=== PATIENT | female | born 1950 | race Caucasian/White ===

== ENCOUNTER 2018-05-03 19:12 | Emergency (ER) | payer MEDICARE, MEDICAID, SELFPAY ==
[2018-05-03 19:19] VITALS: BP 149/88; PULSE 69; RESP 18; TEMP 36.3; O2SAT 98
--- NOTE | 2018-05-03 19:40 | DI.CT_ITS ---
SYMPTOM/DIAGNOSIS: LLQ ABD PAIN, H/O DIVERTICULITIS ABDOMEN AND PELVIC CT: The study was carried out with an intravenous administration of 100 cc's of Omnipaque 350. No abnormality is demonstrated in the lower thorax. The liver is of normal size. There is a region of diminished absorption in the medial segment of the left hepatic lobe measuring up to 1.1 cm. in diameter. This region is unchanged when compared with the prior examination. The finding most likely representing a cyst. The gallbladder is normal. There is no evidence of biliary dilatation. The pancreas is normal. The spleen is unremarkable. The adrenal glands are normal and the kidneys are within normal limits. There is no evidence of bowel obstruction. A large quantity of fecal material is noted in the colon consistent with constipation. There is nothing to suggest an acute appendix. The bladder is normal. The patient is status post hysterectomy. There is no evidence of free air or free fluid in the intraperitoneal space. A tiny fat containing umbilical hernia is demonstrated. There are atherosclerotic changes involving the aorta without evidence of an aneurysm. No intra-abdominal or pelvic mass or evidence of lymphadenopathy is seen. There are degenerative changes involving a rotoscoliotic thoracolumbar spine and degenerative changes involving both hips are seen. IMPRESSION: A hepatic cyst appears stable when compared with previous examination. The examination today would be consistent with constipation in this status post hysterectomy patient. Degenerative changes involving the spine as described above.
--- NOTE | 2018-05-03 19:46 | ED.GENADUL_ITS ---
Discharge Plan Disposition Patient Disposition: HOME Condition: Stable Discharge Details Chief Complaint: Abd Prob Clinical Impression: Abdominal pain, Constipation Primary Care Provider: Lizabeth Mcmahan ED Provider: Dilip Copeland Home Meds and New Rx's Prescriptions: New docusate sodium [Colace] 100 mg capsule 100 mg PO BID Qty: 20 RF: 0 Continued cholecalciferol (vitamin D3) 3,000 unit tablet 1,000 unit PO DAILY RF: 0 cyclobenzaprine 5 mg tablet 5 mg PO TID PRN (Reason: back pain) Qty: 30 RF: 0 acyclovir 5 % ointment 1 applic Topical Q6H PRN Qty: 30 RF: 1 acyclovir 200 mg capsule 200 mg PO Q4HR PRN (Reason: herpes) Qty: 25 RF: 0 metronidazole 500 mg tablet 500 mg PO TID Qty: 21 RF: 0 ciprofloxacin HCl 250 mg tablet 250 mg PO BID Qty: 14 RF: 0 multivitamin 1 EACH tablet 1 tab PO DAILY RF: 0 Acidophilus-Pectin 1 EACH capsule 1 cap PO DAILY RF: 0 estradiol [Estrace] 42.5 GM cream 42.5 gm VG HS PRNQty: 1 RF: 2 aspirin 81 MG tablet,chewable 81 mg PO DAILY RF: 0 diazepam 2 MG tablet 2 mg PO BID PRNQty: 30 RF: 1 citalopram [Celexa] 20 MG tablet 1 tab PO DAILY Qty: 90 RF: 12 clobetasol 15 GM ointment 15 gm Topical PRN Qty: 1 RF: 2 lidocaine HCl 20 ML jelly in applicator 1 ml Topical BID PRNQty: 20 RF: 1 Pulmicort Flexhaler 180 MCG aerosol powdr breath activated 360 mcg Inhalation BID 30 Days Qty: 1 RF: 11 acetaminophen [Tylenol] 325 MG tablet 325 mg PO Q6H PRN PRNRF: 0 Discharge Instructions Instructions: Constipation (ED) Additional Instructions: Your lab work did not show any concerning findings. Your cat scan showed constipation Start taking miralax Follow up with your primary care provider in 1-2 weeks especially if symptoms continue return to the emergency department if you have severe worsening of pain, high fevers or persistent vomit Discharge Data Discharge Date/Time-TO BE ENTERED AT DEPARTURE: 05/03/18 21:05 Medical Decision Making <Annetta Amin DO - Last Filed: 05/04/18 09:45> 67-year-old female with a history of hyperlipidemia, depression, anxiety, and diverticulitis who presents for left lower quadrant abdominal pain for the past 10 days. She has been on Cipro and Flagyl for 6 days prescribed by her PCP for presumed diverticulitis. No recent CT imaging. Afebrile. Patient appears nontoxic. She has tenderness to palpation in her left lower quadrant > L mid abdomen > RLQ. No rigidity. Will place an IV, bolus IV fluids, labs, CT imaging to r/o diverticulitis, diverticular abscess, or other acute abdominal process. She initially declined pain medication and then requested a dose of morphine. 1999 -- case endorsed to Dr. Copeland to f/u on labs and imaging and final disposition. <Dilip Copeland MD - Last Filed: 05/03/18 21:03> Imaging Data Radiologic Study: Attestation: I personally reviewed and interpreted this imaging study as follows: Imaging: CT Scan Radiologist's impression: IMPRESSION: Stable liver cysts. Osseous findings as above. Suspect constipation. Status post hysterectomy Lab Data Lab results reviewed: Yes I reviewed the patient's lab results. HPI <Annetta Amin DO - Last Filed: 05/04/18 09:45> General Mode of arrival: ambulatory . Date/Time Provider Initiated Documentation: 05/03/18 19:30 . Limitations to Documentation: no limitations . Information obtained by: patient . HPI Narrative: Patient is a 67-year-old female with a history of anxiety and diverticulitis who presents for left lower quadrant abdominal pain for the past 10 days. She saw her PCP 6 days ago for the same complaint probable diverticulitis and started on Cipro and Flagyl. She did not have any lab work or imaging at that time. She states since then her pain is gotten progressively worse is more constant and feels like a hot poker . She states the pain is also extending up from her left lower quadrant to her left mid abdomen. She also admits to nausea but denies any vomiting. Last bowel movement this morning was runny and looked like coffee grounds. She last ate at noon today. She denies any known fever or urinary symptoms. Related Data Home Medications Medication Instructions Recorded Confirmed Acidophilus-Pectin 1 cap PO DAILY 05/26/12 05/03/18 multivitamin 1 tab PO DAILY 05/26/12 05/03/18 estradiol [Estrace] 42.5 gm VG HS PRN #1 tube 06/26/14 05/03/18 acetaminophen [Tylenol] 325 mg PO Q6H PRN PRN tab 12/24/16 05/03/18 aspirin 81 mg PO DAILY tab-cap 01/07/17 05/03/18 diazepam 2 mg PO BID PRN #30 tab-cap 07/20/17 05/03/18 citalopram [Celexa] 1 tab PO DAILY #90 tab 08/16/17 05/03/18 clobetasol 15 gm TOPICAL PRN #1 tube 08/16/17 05/03/18 lidocaine HCl 1 ml TOPICAL BID PRN #20 ml 08/16/17 05/03/18 Pulmicort Flexhaler 360 mcg INHALATION BID 30 Days #1 10/20/17 05/03/18 inhaler cholecalciferol (vitamin D3) 3,000 1,000 unit PO DAILY tab 02/10/18 05/03/18 unit tablet cyclobenzaprine 5 mg tablet 5 mg PO TID PRN #30 tab 02/10/18 05/03/18 acyclovir 200 mg capsule 200 mg PO Q4HR PRN #25 tab-cap 04/28/18 05/03/18 acyclovir 5 % topical ointment 1 applic TOPICAL Q6H PRN #30 gm 04/28/18 05/03/18 ciprofloxacin 250 mg tablet 250 mg PO BID #14 tab 04/28/18 05/03/18 metronidazole 500 mg tablet 500 mg PO TID #21 tab 04/28/18 05/03/18 docusate sodium [Colace] 100 mg PO BID #20 cap 05/03/18 Previous Rx's Medication Instructions Recorded acetaminophen [Tylenol] 325 mg PO Q6H PRN PRN tab 12/24/16 citalopram [Celexa] 1 tab PO DAILY #90 tab 08/16/17 clobetasol 15 gm TOPICAL PRN #1 tube 08/16/17 Pulmicort Flexhaler 360 mcg INHALATION BID 30 Days #1 10/20/17 inhaler cyclobenzaprine 5 mg tablet 5 mg PO TID PRN #30 tab 02/10/18 acyclovir 200 mg capsule 200 mg PO Q4HR PRN #25 tab-cap 04/28/18 acyclovir 5 % topical ointment 1 applic TOPICAL Q6H PRN #30 gm 04/28/18 ciprofloxacin 250 mg tablet 250 mg PO BID #14 tab 04/28/18 metronidazole 500 mg tablet 500 mg PO TID #21 tab 04/28/18 docusate sodium [Colace] 100 mg PO BID #20 cap 05/03/18 Allergies Allergy/AdvReac Type Severity Reaction Status Date / Time bupropion HCl AdvReac Severe FELT CRAZY Unverified 05/03/18 19:19 [From Wellbutrin] atorvastatin calcium AdvReac Intermediate Diarrhea Unverified 05/03/18 19:19 [From Lipitor] codeine AdvReac Nausea Unverified 05/03/18 19:19 lactose AdvReac Diarrhea/Cr Unverified 05/03/18 19:19 amping propoxyphene AdvReac Nausea Unverified 05/03/18 19:19 General Stated Complaint: Abd Prob ANNIE: 2 Review of Systems <Annetta Amin DO - Last Filed: 05/04/18 09:45> Review of Systems All systems reviewed & are unremarkable except as noted in HPI and below Constitutional Reports as per HPI, Denies chills and Denies fever(s) Eyes Denies blurry vision ENT Denies dizziness, Denies sore throat and Denies throat swelling Cardiovascular Denies chest pain and Denies dyspnea Respiratory Denies cough and Denies dyspnea Gastrointestinal Reports abdominal pain, Denies diarrhea and Denies vomiting Genitourinary Denies hematuria and Denies dysuria Musculoskeletal Denies back pain and Denies numbness Integumentary/Breasts Denies lesions and Denies rash Neurologic Denies dizziness, Denies focal weakness and Denies numbness Allergic/Immunologic Denies throat swelling PFSH <Annetta Amin DO - Last Filed: 05/04/18 09:45> Medical History Vulvar atrophy (Chronic 11/06/14) Mild persistent asthma without complication (Chronic 09/17/16) Lumbar degenerative disc disease (Chronic 07/21/13) Lichen sclerosus et atrophicus (Chronic 08/10/12) Lactose intolerance (Chronic) Increased body mass index (Chronic) Hyperlipidemia (Chronic 07/20/13) Urinary, incontinence, stress female (Chronic 05/11/11) Female genital prolapse (Chronic 09/06/17) Diverticula of colon (Inactive) Depressive disorder (Chronic) Chronic left shoulder pain (Chronic 12/17/16) Cervical radicular pain (Chronic 12/29/16) Anxiety (Chronic) Herpes (Resolved 06/26/14) Knee pain (Resolved 04/07/10) Anxiety Cervical pain Depressive disorder Diverticulitis Hyperlipidemia Lactose intolerance Lichen sclerosus et atrophicus Lumbar degenerative disc disease Stress incontinence Vaginal atrophy Surgical History H/O bilateral salpingo-oophorectomy (Resolved) H/O bladder repair surgery (Resolved) S/P abdominal hysterectomy (Resolved) Abdominal hysterectomy (~1998) Bilateral salpingectomy with oophorectomy (~1998) Bladder Surgery (~1998) Colonoscopy - MAC (~2004) Fracture, Closed Treatment Family History Mother Essential hypertension Father Heart disease Hyperlipidemia Sister No problems noted. Brother Essential hypertension Hyperlipidemia Grandfather Heart disease Stroke Grandfather Heart disease Grandmother Personal history of malignant neoplasm Grandmother Personal history of malignant neoplasm Son No problems noted. Social History highest education level completed: some college, no degree current occupational status: retired pets and animals: Yes pets and animals: cat(s) what type of physical activity do you participate in: none Smoking and Tabacco status: Former Tobacco Use how long ago did patient quit smokin alcohol intake: never substance use type: does not use omaira/latter day: Caodaism special omaira needs: No Seatbelt use: always Exam <Annetta Amin DO - Last Filed: 05/04/18 09:45> Const General: cooperative, healthy appearing and no acute distress HENMT Head: normal to inspection Face and sinus: normal facial exam Eyes General: appearance normal, both eyes and all related structures EOM: EOM intact bilaterally Neck Neck: normal visual inspection and No submandibular swelling Lymphatic: no lymphadenopathy noted Chest Chest: normal inspection of the chest and no tenderness Resp Effort & Inspection: normal respiratory effort and able to speak in complete sentences Auscultation: clear to auscultation bilaterally Cardio Rate: regular rate Rhythm: regular rhythm GI Inspection: normal to inspection Palpation: soft, not firm, not rigid and tender other (Most significant abdominal tenderness left lower quadrant, also tender in left mid abdomen and right lower quadrant) Auscultation: normal bowel sounds Skin General skin exam: no rashes or lesions noted Neuro General: alert, awake and oriented x3 Cognition: normal cognition Speech: speech normal Motor: muscle tone normal throughout Sensory Exam: no sensory deficits noted Extrem General: normal to inspection, full ROM, normal capillary refill, no calf tenderness bilaterally and no edema Psych Appearance: grossly normal Mental Status: mental status grossly normal Speech and Movement: speech and movement normal Affect: normal affect Course <Annetta Amin DO - Last Filed: 05/04/18 09:45> Vital Signs Temperature 97.3 F L 05/03/18 19:19 Pulse 69 05/03/18 19:19 Respiratory Rate 18 05/03/18 19:19 Blood Pressure 149/88 H 05/03/18 19:19 Pulse Oximetry 98 05/03/18 19:19 Temperature 97.3 F L 05/03/18 19:19 Temperature Source Temporal Artery Scan 05/03/18 19:19 Pulse 69 05/03/18 19:19 Respiratory Rate 18 05/03/18 19:19 Respiratory Effort 05/03/18 19:19 Blood Pressure 149/88 H 05/03/18 19:19 Blood Pressure Position Sitting 05/03/18 19:19 Pulse Oximetry 98 05/03/18 19:19 Oxygen Delivery Method Room Air 05/03/18 19:19 Oxygen Flow Rate 0 05/03/18 19:19 Sign Out <Annetta Amin DO - Last Filed: 05/04/18 09:45> Sign Out Data: Sign Out Comment: f/u on labs and imaging Last updated by Annetta Amin DO at 05/03/18 19:49
[2018-05-03 19:49] LABS: Abs Immature Grans 0.02 k/cumm (0.0-0.09); Absolute Basophil Count 0.05 k/cumm (0.0-0.2); Absolute Eosinophil Count 0.76 k/cumm (0.0-0.7); Absolute Lymphocyte Count 2.55 k/cumm (1.2-3.4); Absolute Monocyte Count 0.94 k/cumm (0.11-0.7); Absolute Neutrophil Count 3.91 k/cumm (1.2-6.7); Basophils % 0.6; Eosinophils % 9.2; HCT 42.3 % (36.0-46.0); HGB 14.2 g/dL (12.0-15.5); Immature Grans % 0.2; Mean Corp. HGB Concentration 33.6 g/dL (32.0-36.0); Mean Corpuscular Hemoglobin 31.4 pg (27.0-33.0); Mean Corpuscular Volume 93.6 fL (80-95); Mean Platelet Volume 10.8 fL (8.0-11.0); Monocytes % 11.4; Neutrophils % 47.6; Platelet Count 228 x1000/uL (130-400); RBC 4.52 m/cumm (4.00-5.20); RBC Distribution Width 13.7 % (11.7-14.6); White Blood Cell Count 8.23 k/cumm (4.4-10.8)
[2018-05-03] MEDS: Normal Saline 250 ML 500 ML IV (19:55)
[2018-05-03] MEDS: MORPHine 10 MG/ML VIAL 2 MG IVP (19:55)
[2018-05-03 20:02] LABS: ALT 18 U/L (12-78); AST 31 U/L (15-37); Albumin 3.9 g/dL (3.4-5.0); Alkaline Phosphatase 74 U/L (46-116); Anion Gap 9.6 mmol/L (3-11); BUN 13 mg/dL (7-18); Bilirubin, Total 0.3 mg/dL (0.2-1.0); CO2 25.4 mmol/L (21.0-32.0); CREATININE 0.77 mg/dL (0.55-1.02); Calcium 8.9 mg/dL (8.5-10.1); Chloride 101 mmol/L (98-107); Glucose 103 mg/dL (70-100); Lipase 102 U/L (73-393); Sodium 136 mmol/L (136-145); Total Protein 7.5 g/dL (6.4-8.2)
[2018-05-03] MEDS: Omnipaque 350 MG/ML 100 ML BTL IV (20:02)
[2018-05-03] MEDS: Normal Saline Flush 10 ML SYR IV (20:18)
--- NOTE | 2018-05-03 20:55 | DI.VRAD_ITS ---
EXAM: CT Abdomen and Pelvis With Contrast EXAM DATE/TIME: 05/03/2018 7:41 PM CLINICAL HISTORY: 67 years old, female; Pain; Abdominal pain; Localized; Left lower quadrant (llq); Prior surgery; Surgery date: 6+ months; Surgery type: Hysterectomy, bladder surgery; Patient HX: Llq pain for 6 days with HX of diverticulitis, increasing llq pain and burning sensation. Has been on antibiotics for 6 days TECHNIQUE: Axial computed tomography images of the abdomen and pelvis with intravenous contrast. All CT scans at this facility use at least one of these dose optimization techniques: automated exposure control; mA and/or kV adjustment per patient size (includes targeted exams where dose is matched to clinical indication); or iterative reconstruction. Coronal and sagittal reformatted images were created and reviewed. CONTRAST: Contrast Material: 100 ml of omnipaque 350; Contrast Route: IV RAC COMPARISON: CT ABD PELVIS WITH CONTRAST 05/15/2015 2:10 PM FINDINGS: Lower thorax: The visualized portions of the heart and pericardium appear within normal limits. The visualized lung bases are within normal limits. ABDOMEN: Liver: There is a low attenuation lesion within the medial segment of the left lobe of the liver. This measures up to 1.1 cm. This was present on the earlier study and appears unchanged. This most likely represents a small cyst. Gallbladder and bile ducts: The gallbladder is within normal limits. Pancreas: The pancreas is within normal limits. Spleen: The spleen is unremarkable. Adrenals: The adrenal glands are within normal limits. Kidneys and ureters: The kidneys are unremarkable. Stomach and bowel: There is no evidence of bowel obstruction. There are feces within the colon which could represent some degree of constipation. Appendix: No evidence of appendicitis. PELVIS: Bladder: The urinary bladder is within normal limits. Reproductive: The patient is status post hysterectomy. ABDOMEN and PELVIS: Intraperitoneal space: Normal. No free air. No significant fluid collection. Bones/joints: There is an S-shaped scoliosis of the thoracolumbar spine. There are degenerative changes of the thoracic and lumbar spines. There are degenerative changes of both hips. There is degenerative disc disease at L2-L3 and L5-S1. Soft tissues: There is a tiny fat containing umbilical hernia. Vasculature: There are phleboliths within the pelvis. There are arteriosclerotic changes of the aorta. Lymph nodes: No enlarged lymph nodes. IMPRESSION: Stable liver cysts. Osseous findings as above. Suspect constipation. Status post hysterectomy. Dictated and Authenticated by: Casimiro Casanova MD. Ordering:MOHINDER Littlejohn MD
== END 2018-05-03 21:05 | disposition home or self-care (01) ==
PROVIDERS: Physician Assistant; Emergency Provider Emergency Medicine; PCP Family Medicine
DX: R10.32 Left lower quadrant pain (principal); K59.00 Constipation, unspecified; Z87.19 Personal history of other diseases of the digestive system
CPT/HCPCS: 36415; 80053; 83690; 96361; 96374; 96375; 99285; 74177; 85025; 99284; J2270; J3490

== ENCOUNTER 2018-06-02 10:04 | Outpatient (REF) | payer MEDICARE, MEDICAID, SELFPAY ==
--- NOTE | 2018-06-02 09:00 | VUL_PTH ---
PATIENT: Joselyn Gray LOC: [facility] U#:[id number] AGE/SX: 68/F ROOM: RE06/02/[address]: Gregoria Copeland NP : 1950 BED: DIS: 06/02/2018 SPEC #: [id number] RECD: 06/02/18 12:39 STATUS: NAVYA REQ #: [id number] JOVITA: 06/02/18 09:[address]: Dinorah GONZALEZ,Gregoria DEPT: Surgical Specimen RECD BY: Karina Streeter ENTERED: 06/02/18 12:39 SP TYPE: VUL OTHR DR: Lizabeth Mcmahan MD, DC Tissues: 1 - VULVA BIOPSY Procedures: GROSS AND MICRO LEVEL 4 Comments: [id number]
== END 2018-06-02 10:24 ==
LOC: LBN 10:04
PROVIDERS: PCP Family Medicine; Visit Provider Nurse Practitioner Women's Health
DX: N90.4 Leukoplakia of vulva (principal); L90.0 Lichen sclerosus et atrophicus
CPT/HCPCS: 88305

== ENCOUNTER 2018-07-06 09:41 | Emergency (ER) | payer MEDICARE, MEDICAID, SELFPAY ==
[2018-07-06] VITALS (14 sets, daily range): BP systolic 121–178; BP diastolic 70–103; PULSE 57–76; RESP 8–23; TEMP 36.6; O2SAT 94–98
--- NOTE | 2018-07-06 09:56 | DI.CT_ITS ---
SYMPTOM/DIAGNOSIS: LT SIDED ABD PAIN, H/O DIVERTICULITIS, RT SIDED TINGLING NONCONTRAST HEAD CT: A noncontrast cranial CT was performed. Note is made of mucoperiosteal thickening of ethmoid and maxillary sinuses bilaterally consistent with mild chronic sinusitis and probably unchanged from previous CT of 12/23/16. The orbital and temporal bone structures appear intact. Mastoid air cells are well aerated. Ventricular system is normal in appearance. No evidence of acute intracranial hemorrhage, mass effect or midline shift. CONCLUSION: No evidence of acute intracranial process. ABDOMEN AND PELVIC CT: CT examination of the abdomen and pelvis was performed with a bolus infusion of 100 cc's of Omnipaque 350. Images obtained through the lung bases are unremarkable. There is an incidental small right lobe hepatic cyst. Gallbladder and bile ducts are CT normal. Pancreas appears normal. Question mild thickening of gastric antral wall, question gastritis, please correlate clinically. Pancreas appears normal as does the spleen. Adrenals and kidneys are unremarkable. No evidence of urinary tract calcification or obstruction. Abdominal aorta is of normal diameter and no major vascular abnormality is seen. Incidental single trunk supplies celiac trunk and SMA. No abdominal or pelvic adenopathy is seen. No significant abdominal wall hernia is seen. Appendix is normal. No evidence of diverticulitis. CONCLUSION: No evidence of acute intra-abdominal process, question mild gastric antral wall thickening, rule out gastritis.
[2018-07-06 10:17] LABS: Abs Immature Grans 0.02 k/cumm (0.0-0.09); Absolute Basophil Count 0.04 k/cumm (0.0-0.2); Absolute Eosinophil Count 0.66 k/cumm (0.0-0.7); Absolute Lymphocyte Count 2.08 k/cumm (1.2-3.4); Absolute Monocyte Count 0.62 k/cumm (0.11-0.7); Absolute Neutrophil Count 3.63 k/cumm (1.2-6.7); Basophils % 0.6; Eosinophils % 9.4; HCT 43.4 % (36.0-46.0); HGB 14.3 g/dL (12.0-15.5); Immature Grans % 0.3; Lymphocytes % 29.5; Mean Corp. HGB Concentration 32.9 g/dL (32.0-36.0); Mean Corpuscular Hemoglobin 31.8 pg (27.0-33.0); Mean Corpuscular Volume 96.4 fL (80-95); Mean Platelet Volume 10.7 fL (8.0-11.0); Monocytes % 8.8; Neutrophils % 51.4; Platelet Count 233 x1000/uL (130-400); RBC Distribution Width 13.6 % (11.7-14.6); White Blood Cell Count 7.05 k/cumm (4.4-10.8)
[2018-07-06] MEDS: Normal Saline 1,000 ML 1000 ML IV (10:26)
[2018-07-06] MEDS: Acetaminophen 500 MG TAB 1000 MG PO (10:26)
[2018-07-06 10:27] LABS: Bilirubin Negative (Negative); Blood Negative (Negative); Clarity Clear; Glucose Negative (Negative); Ketones Negative (Negative); Leukocyte Esterase Negative (Negative); Nitrite Negative (Negative); Specific Gravity 1.015 (1.005-1.025); Urobilinogen 0.2 EU/dL (Up TO 0.2); pH 7.5 (5-8)
--- NOTE | 2018-07-06 10:27 | ED.GENADUL_ITS ---
Discharge Plan Disposition Patient Disposition: HOME Condition: Good Discharge Details Chief Complaint: GenMedical Clinical Impression: Abdominal pain, acute, epigastric Primary Care Provider: Lizabeth Mcmahan ED Provider: Ramon Cuevas Home Meds and New Rx's Prescriptions: New omeprazole 40 mg capsule,delayed release(DR/EC) 40 mg PO DAILY Qty: 30 RF: 0 Continued cholecalciferol (vitamin D3) 3,000 unit tablet 1,000 unit PO DAILY RF: 0 cyclobenzaprine 5 mg tablet 5 mg PO TID PRN (Reason: back pain) Qty: 30 RF: 0 acyclovir 5 % ointment 1 applic Topical Q6H PRN Qty: 30 RF: 1 acyclovir 200 mg capsule 200 mg PO Q4HR PRN (Reason: herpes) Qty: 25 RF: 4 clobetasol 0.05 % ointment 15 gm Topical PRN Qty: 1 RF: 2 multivitamin 1 EACH tablet 1 tab PO DAILY RF: 0 Acidophilus-Pectin 1 EACH capsule 1 cap PO DAILY RF: 0 aspirin 81 MG tablet,chewable 81 mg PO DAILY RF: 0 diazepam 2 MG tablet 2 mg PO BID PRNQty: 30 RF: 1 citalopram [Celexa] 20 MG tablet 1 tab PO DAILY Qty: 90 RF: 12 lidocaine HCl 20 ML jelly in applicator 1 ml Topical BID PRNQty: 20 RF: 1 Pulmicort Flexhaler 180 MCG aerosol powdr breath activated 360 mcg Inhalation BID 30 Days Qty: 1 RF: 11 acetaminophen [Tylenol] 325 MG tablet 325 mg PO Q6H PRN PRNRF: 0 docusate sodium [Colace] 100 mg capsule 100 mg PO BID Qty: 20 RF: 0 Discharge Instructions Instructions: Diet for Stomach Ulcers and Gastritis (ED), Abdominal Pain (ED) Additional Instructions: Your CT scan at this time shows no evidence of abnormality or diverticulitis per our radiologist. Your heart work-up and CT scan of your brain show no abno rmalities whatsoever. I suspect part of your symptoms may be related to a stomach ulcer. Please avoid the foods we talked about including citrus foods, spicy foods, tomato-based products, and black coffee. Please take medication as directed. If you notice any worsening of your symptoms, or any new symptoms such as vomiting, diarrhea, fever, chills, shortness of breath, chest pain, numbness, weakness, or fainting , please return immediately to the emergency department for reevaluation. Please follow up with your primary care provider as soon as possible for reassessment and reevaluation. As always, it was a pleasure participating in your medical care today. Referrals: Lizabeth Mcmahan MD, [place] [Primary Care Provider] - Medical Decision Making This is a 68-year-old female with a past medical history of diverticulitis who presents today for evaluation of left lower quadrant abdominal pain which radiates into the left upper quadrant. She denies any shortness of breath or chest pain. She denies any history of cardiac disease. Denies PE risk factors such as recent long car rides, immobilization, recent surgery, prior history of DVT or PE, family history of PE or DVT, morbid obesity, exogenous estrogen and smoking, hemoptysis, history of cancer. She states that this feels slightly similar to her previous episodes of diverticulitis but more mild. She also admits to mild subjective tingling in her right face, and question about subjective weakness in her right side. Physical exam demonstrates no focal neurologic deficits, no strength asymmetry, no signs or symptoms consistent with stroke. With the patient's mild reproducible left-sided tenderness, diverticulitis is certainly on the differential. Vital signs are notably reassuring. No clinical evidence of sepsis at this time. Because of the atypical nature, with radiation to her left upper quadrant and the differential also includes cardiac etiology although I feel this unlikely. We will rehydrate, evaluate for ACS, intra-abdominal pathology with CT scan, and reassess. 12:19 PM Patient symptoms are notably improved with GI cocktail. CT scan of the head shows no evidence of acute stroke, CT scan of the abdomen pelvis shows no evidence of acute process per Dr. Pierre. Repeat exam demonstrates no significant abdominal tenderness on exam. No evidence of clinically surgical abdomen. Laboratory work-up is notably reassuring with no white count, electrolyte abnormality, urinalysis is benign. Troponin and EKG is negative for any evidence of ACS and is clinically inconsistent with ACS at this time. Additionally CT scan of the head is negative, and she shows no focal neurologic deficits. Signs and symptoms are inconsistent with stroke. Recommend close outpatient follow-up for reassessment with her PCP. Signs and symptoms appear consistent with mild gastric ulcer. I did discuss the patient's recent eating habits and she states that she is significantly increase the amount of citrus foods over the last 3 to 4 days since her symptoms began, has also been eating some tomato foods, and drinks 2 cups of black coffee per day. Recommended appropriate diet modifications, and close follow-up with her primary care provider. We will start the patient on omeprazole. Discussed red flags which to return. I have extensively reviewed the treatment plan and discharge instructions with the patient and their family. I have addressed all patient concerns at this time. The patient and family was made aware of what symptoms to monitor for that would warrant a return to the emergency department. Discussed the plan with the patient and family, they demonstrate verbal understanding and agreement with our assessment and plan at this time. EKG 9: 47 Rate 64, sinus rhythm, normal intervals, no significant ST elevations or depressions, no T wave inversions except for in V1. No Q waves. No other abnormalities. Normal EKG HPI General Date/Time Provider Initiated Documentation: 07/06/18 09:47 . HPI Narrative: Rachael seth is a 68-year-old female with a past medical history of diverticulitis, high cholesterol, distant tobacco history, who presents today for left lower quadrant abdominal pain, with radiation to her left upper quadrant. She denies any chest pain or shortness of breath. She denies any fever, chills, vomiting or diarrhea. She has been eating, but slightly less than normal. She denies any pleuritic chest pain, history of cardiac disease, or previous abdominal surgery. She states that this feels slightly like her previous diverticulitis. Symptoms have been present for the last 1 to 2 days. She denies any aggravating or relieving factors. Additionally the patient does also complain of mild subjective right facial tingling and minimal fatigue on her right side. She denies severe weakness, denies any recent falls or injuries, she denies history of stroke. She did have a benign carotid artery ultrasound in 2017 as well as a benign echocardiogram at the same time. She denies any fever, chills, headache or neck pain or neck stiffness. She denies any vision changes. She has no additional complaints at this time. No other modifying factors. Related Data Home Medications Medication Instructions Recorded Confirmed Acidophilus-Pectin 1 cap PO DAILY 05/26/12 06/02/18 multivitamin 1 tab PO DAILY 05/26/12 06/02/18 acetaminophen [Tylenol] 325 mg PO Q6H PRN PRN tab 12/24/16 06/02/18 aspirin 81 mg PO DAILY tab-cap 01/07/17 06/02/18 diazepam 2 mg PO BID PRN #30 tab-cap 07/20/17 06/02/18 citalopram [Celexa] 1 tab PO DAILY #90 tab 08/16/17 06/02/18 lidocaine HCl 1 ml TOPICAL BID PRN #20 ml 08/16/17 06/02/18 Pulmicort Flexhaler 360 mcg INHALATION BID 30 Days #1 10/20/17 06/02/18 inhaler cholecalciferol (vitamin D3) 3,000 1,000 unit PO DAILY tab 02/10/18 06/02/18 unit tablet cyclobenzaprine 5 mg tablet 5 mg PO TID PRN #30 tab 02/10/18 06/02/18 acyclovir 5 % topical ointment 1 applic TOPICAL Q6H PRN #30 gm 04/28/18 06/02/18 docusate sodium [Colace] 100 mg PO BID #20 cap 05/03/18 06/02/18 acyclovir 200 mg capsule 200 mg PO Q4HR PRN #25 tab-cap 06/02/18 06/02/18 clobetasol 0.05 % topical ointment 15 gm TOPICAL PRN #1 tube 06/02/18 06/02/18 omeprazole 40 mg PO DAILY #30 cap 07/06/18 Previous Rx's Medication Instructions Recorded acetaminophen [Tylenol] 325 mg PO Q6H PRN PRN tab 12/24/16 citalopram [Celexa] 1 tab PO DAILY #90 tab 08/16/17 Pulmicort Flexhaler 360 mcg INHALATION BID 30 Days #1 10/20/17 inhaler cyclobenzaprine 5 mg tablet 5 mg PO TID PRN #30 tab 02/10/18 acyclovir 5 % topical ointment 1 applic TOPICAL Q6H PRN #30 gm 04/28/18 docusate sodium [Colace] 100 mg PO BID #20 cap 05/03/18 acyclovir 200 mg capsule 200 mg PO Q4HR PRN #25 tab-cap 06/02/18 clobetasol 0.05 % topical ointment 15 gm TOPICAL PRN #1 tube 06/02/18 omeprazole 40 mg PO DAILY #30 cap 07/06/18 Allergies Allergy/AdvReac Type Severity Reaction Status Date / Time bupropion HCl AdvReac Severe FELT CRAZY Unverified 06/02/18 08:18 [From Wellbutrin] atorvastatin calcium AdvReac Intermediate Diarrhea Unverified 06/02/18 08:18 [From Lipitor] codeine AdvReac Nausea Unverified 06/02/18 08:18 lactose AdvReac Diarrhea/Cr Unverified 06/02/18 08:18 amping propoxyphene AdvReac Nausea Unverified 06/02/18 08:18 General Stated Complaint: GenMedical ANNIE: 3 Review of Systems Review of Systems All systems reviewed & are unremarkable except as noted in HPI and below PFSH Social History Smoking/Tobacco Use Status: Former Tobacco Use Alcohol Intake: never Drug use: Never Substance use type: does not use Pets and animals: Yes Pets and animals: cat(s) What type of physical activity do you participate in: none Bree/Adventism: Nondenominational Special bree needs: No Seatbelt use: always Do you feel safe at home: Yes Do you feel safe in your relationship?: Yes Exam Narrative Exam Narrative: 1.Const: Well-nourished, Well-developed, appearing stated age 2.Eyes: PERRL, no conjunctival injection, and symmetrical lids. 3.ENT: Atraumatic external nose and ears. Moist MM. Neck: Symmetric, trachea midline, No thyromegaly. 4.CVS: +S1/S2, No murmurs or gallops. Peripheral pulses 2+ and equal in all extremities. Brisk capillary refill in all extremities. 5.RESP: Unlabored respiratory effort. Clear to auscultation bilaterally. No wheezes rales or rhonchi 6.GI: Soft, Nondistended, No hepatosplenomegaly. No guarding or rebound. Mild tenderness in the left lower abdominal quadrant and left upper abdominal quadrant. No pain in the right upper or right lower. No periumbilical tenderness. Negative obturator and psoas sign 7.MSK: Normocephalic/Atraumatic, Extremities w/o deformity or ttp No cyanosis or clubbing, Normal movement of all extremities 8.Skin: Warm, Dry. No rashes or lesions. 9.Neuro: occupational health manager II-XII grossly intact. Sensation grossly intact, no focal neurologic deficits. All 6 cardinal planes of vision are fully intact. No evidence of rotatory or vertical nystagmus. The patient demonstrated a normal [id number], good dexterity. There was no evidence of dysdiadochokinesia. Patient was able to ambulate without difficulty. There was no wide-based gait. Romberg, and pwhk-[id number] are both normal on testing. Sensation was intact bilaterally as well as muscle strength bilaterally for all extremities. Patient was able to verbalize butter cup with no slurring, or miss pronunciation. 10.Psych: (AAO) x3. Appropriate mood and affect Course Vital Signs Temperature 36.6 C 07/06/18 09:50 Pulse 73 07/06/18 09:50 Respiratory Rate 20 07/06/18 09:50 Blood Pressure 178/99 H 07/06/18 09:50 Pulse Oximetry 98 07/06/18 09:50 Temperature 36.6 C 07/06/18 09:50 Temperature Source Skin 07/06/18 09:50 Pulse 73 07/06/18 09:50 Respiratory Rate 20 07/06/18 09:50 Blood Pressure 178/99 H 07/06/18 09:50 Blood Pressure Position Sitting 07/06/18 09:50 Pulse Oximetry 98 07/06/18 09:50 Oxygen Delivery Method Room Air 07/06/18 09:50 Oxygen Flow Rate 0 07/06/18 09:50 Pain Level 6 07/06/18 09:50 Lab/Test Results Lab/Test Results: Laboratory Tests Range/Units 07/06/18 10:11 WBC (4.4-10.8) k/cumm 7.05 RBC (4.00-5.20) m/cumm 4.50 Hgb (12.0-15.5) g/dL 14.3 Hct (36.0-46.0) % 43.4 MCV (80-95) fL 96.4 H MCH (27.0-33.0) pg 31.8 MCHC (32.0-36.0) g/dL 32.9 RDW (11.7-14.6) % 13.6 Plt Count (130-400) x1000/uL 233 MPV (8.0-11.0) fL 10.7 Immature Gran % 0.3 Neutrophils % 51.4 Lymphocytes % 29.5 Monocytes % 8.8 Eosinophils % 9.4 Basophils % 0.6 Absolute Neutrophils (1.2-6.7) k/cumm 3.63 Absolute Lymphocytes (1.2-3.4) k/cumm 2.08 Absolute Monocytes (0.11-0.7) k/cumm 0.62 Absolute Eosinophils (0.0-0.7) k/cumm 0.66 Absolute Basophils (0.0-0.2) k/cumm 0.04
[2018-07-06 10:41] LABS: ALT 19 U/L (12-78); AST 23 U/L (15-37); Albumin 3.4 g/dL (3.4-5.0); Alkaline Phosphatase 74 U/L (46-116); Anion Gap 8.3 mmol/L (3-11); BUN 14 mg/dL (7-18); Bilirubin, Total 0.3 mg/dL (0.2-1.0); CO2 26.7 mmol/L (21.0-32.0); CREATININE 0.68 mg/dL (0.55-1.02); Chloride 102 mmol/L (98-107); Glucose 102 mg/dL (70-100); Lipase 125 U/L (73-393); Sodium 137 mmol/L (136-145); Total Protein 7.2 g/dL (6.4-8.2)
[2018-07-06 10:59] LABS: Troponin I < 0.02 ng/mL (0.00-0.06)
[2018-07-06] MEDS: Omnipaque 350 MG/ML 100 ML BTL IJ (11:49)
[2018-07-06] MEDS: Normal Saline Flush 10 ML SYR IVP (11:50)
== END 2018-07-06 12:35 | disposition home or self-care (01) ==
PROVIDERS: Emergency Provider Student in an Organized Health Care Education/Training Program; PCP Family Medicine
DX: R10.13 Epigastric pain (principal); R20.2 Paresthesia of skin
CPT/HCPCS: 36415; 80053; 83690; 93005; 96360; 99285; 70450; 74177; 81003; 84484; 85025; 93010; J3490

== ENCOUNTER 2018-08-27 01:51 | Outpatient (CLI) | payer MEDICARE, MEDICAID, SELFPAY ==
[2018-08-27 10:49] LABS: Bilirubin Negative (Negative); Blood Trace-lysed (Negative); Clarity Clear (Clear); Glucose Negative (Negative); Ketones Negative (Negative); Leukocyte Esterase Negative (Negative); Nitrite Negative (Negative); Specific Gravity 1.025 (1.005-1.025); Urobilinogen 0.2 EU/dL (Up TO 0.2); pH 5.5 (5-8)
[2018-08-27 11:17] LABS: C & S Indicated? No
== END 2018-08-27 02:11 ==
PROVIDERS: Family Medicine; PCP Family Medicine; Visit Provider Family Medicine
DX: R30.0 Dysuria (principal)
CPT/HCPCS: 81003; 81015

== ENCOUNTER 2018-09-30 13:39 | Emergency (ER) | payer MEDICARE, MEDICAID, SELFPAY ==
[2018-09-30 13:43] VITALS: BP 142/75; PULSE 65; RESP 16; TEMP 36.9; O2SAT 99
--- NOTE | 2018-09-30 14:06 | ED.GENADUL_ITS ---
Discharge Plan Disposition Patient Disposition: HOME Condition: Improving Discharge Details Chief Complaint: Orthopedic Clinical Impression: Fall, Contusion of right shoulder, Back pain, Contusion of face, Closed head injury without loss of consciousness Primary Care Provider: Lizabeth Mcmahan ED Provider: Annetta Amin Home Meds and New Rx's Prescriptions: Continued cholecalciferol (vitamin D3) 3,000 unit tablet 1,000 unit PO DAILY RF: 0 acyclovir 5 % ointment 1 applic Topical Q6H PRN Qty: 30 RF: 1 acyclovir 200 mg capsule 200 mg PO Q4HR PRN (Reason: herpes) Qty: 25 RF: 4 clobetasol 0.05 % ointment 15 gm Topical PRN Qty: 1 RF: 2 albuterol sulfate 90 mcg/actuation HFA aerosol inhaler 2 puff IH QID PRN (Reason: shortness of breath or wheezing) RF: 0 montelukast 10 mg tablet 10 mg PO DAILY Qty: 30 RF: 3 multivitamin 1 EACH tablet 1 tab PO DAILY RF: 0 Acidophilus-Pectin 1 EACH capsule 1 cap PO DAILY RF: 0 aspirin 81 MG tablet,chewable 81 mg PO DAILY RF: 0 citalopram [Celexa] 20 MG tablet 1 tab PO DAILY Qty: 90 RF: 12 lidocaine HCl 20 ML jelly in applicator 1 ml Topical BID PRNQty: 20 RF: 1 Pulmicort Flexhaler 180 MCG aerosol powdr breath activated 360 mcg Inhalation BID 30 Days Qty: 1 RF: 11 acetaminophen [Tylenol] 325 MG tablet 325 mg PO Q6H PRN PRNRF: 0 docusate sodium [Colace] 100 mg capsule 100 mg PO BID Qty: 20 RF: 0 Discharge Instructions Instructions: Head Injury (ED), Contusion in Adults (ED), Back Pain (ED) Additional Instructions: Take tylenol as needed and directed for pain. Apply ice to the affected area several times daily for 20 minutes at a time. Follow up with your primary care doctor next week for re-evaluation. Return immediately to the emergency department if you develop any worsening or new concerning symptoms of headache, vomiting, blurry vision, dizziness. Discharge Data Discharge Date/Time-TO BE ENTERED AT DEPARTURE: 09/30/18 15:37 Discharge Physician: Annetta Amin Medical Decision Making 68-year-old female who presents with right facial pain, right shoulder pain, right knee contusion after mechanical fall prior to arrival. Denies LOC, vomiting, neck pain, chest pain, abdominal pain. She has minimal right-sided facial ecchymosis near the area of glasses but no evidence of step- off, hematoma, or entrapment. No C-spine tenderness. She has a history of chronic midline back pain but states this is worse than usual. No chest or abdominal tenderness. Minimal ecchymosis right anterior knee but no evidence of deformity or ligamentous instability. Discussed with patient that she has no scalp hematoma, LOC, vomiting, or history of anticoagulation, do not see an indication for CT head at this time and patient is agreeable and would rather hold on this at this time. She was offered CT head but declined stating she will return for this if needed. Will obtain a CT right humerus and thoracic spine. Will give a dose of Tylenol and reassess. X-ray T-spine and right humerus negative. Patient states she feels much better after Tylenol. Patient advised to follow-up with her primary care doctor for reevaluation and to return here anytime if worse with persistent headache, vomiting, dizziness or blurry vision for consideration of CT head at that time. Medical Records Medical records reviewed: Yes I reviewed the patient's medical records. Imaging Data Radiologic Study: Radiologist's impression: RIGHT HUMERUS: Two views were obtained. No fracture is seen. THORACIC SPINE: Three views were obtained. No fracture is seen. HPI General Mode of arrival: ambulatory . Date/Time Provider Initiated Documentation: 09/30/18 13:48 . Limitations to Documentation: no limitations . Information obtained by: patient . HPI Narrative: Patient is a 5-year-old female who presents with right shoulder and upper arm, right knee and right fac ial pain after mechanical fall prior to arrival. Patient states she was sweeping off dirt and dog poop from the ground when she slipped coming around the back of a truck and fell onto her right side. She denies any LOC or vomiting. She is complaining mainly of right-sided facial pain near the area of her glasses where they scratched as well as right upper arm pain. She states she has a right knee bruise but denies any significant pain here. She denies any chest pain or shortness of breath. She states she took 1-1/2 tabs of 325 mg Tylenol at the time of injury which was 3 hours ago. Related Data Home Medications Medication Instructions Recorded Confirmed Acidophilus-Pectin 1 cap PO DAILY 05/26/12 09/30/18 multivitamin 1 tab PO DAILY 05/26/12 09/15/18 acetaminophen [Tylenol] 325 mg PO Q6H PRN PRN tab 12/24/16 09/30/18 aspirin 81 mg PO DAILY tab-cap 01/07/17 09/30/18 citalopram [Celexa] 1 tab PO DAILY #90 tab 08/16/17 09/30/18 lidocaine HCl 1 ml TOPICAL BID PRN #20 ml 08/16/17 09/15/18 Pulmicort Flexhaler 360 mcg INHALATION BID 30 Days #1 10/20/17 09/30/18 inhaler cholecalciferol (vitamin D3) 3,000 1,000 unit PO DAILY tab 02/10/18 09/30/18 unit tablet acyclovir 5 % topical ointment 1 applic TOPICAL Q6H PRN #30 gm 04/28/18 09/30/18 docusate sodium [Colace] 100 mg PO BID #20 cap 05/03/18 09/30/18 acyclovir 200 mg capsule 200 mg PO Q4HR PRN #25 tab-cap 06/02/18 09/30/18 clobetasol 0.05 % topical ointment 15 gm TOPICAL PRN #1 tube 06/02/18 09/30/18 albuterol sulfate 90 mcg/actuation 2 puff IH QID PRN 09/15/18 09/30/18 aerosol inhaler montelukast 10 mg tablet 10 mg PO DAILY #30 tab 09/15/18 09/30/18 Previous Rx's Medication Instructions Recorded acetaminophen [Tylenol] 325 mg PO Q6H PRN PRN tab 12/24/16 citalopram [Celexa] 1 tab PO DAILY #90 tab 08/16/17 Pulmicort Flexhaler 360 mcg INHALATION BID 30 Days #1 10/20/17 inhaler acyclovir 5 % topical ointment 1 applic TOPICAL Q6H PRN #30 gm 04/28/18 docusate sodium [Colace] 100 mg PO BID #20 cap 05/03/18 acyclovir 200 mg capsule 200 mg PO Q4HR PRN #25 tab-cap 06/02/18 clobetasol 0.05 % topical ointment 15 gm TOPICAL PRN #1 tube 06/02/18 montelukast 10 mg tablet 10 mg PO DAILY #30 tab 09/15/18 Allergies Allergy/AdvReac Type Severity Reaction Status Date / Time bupropion HCl AdvReac Severe FELT CRAZY Unverified 09/15/18 11:37 [From Wellbutrin] atorvastatin calcium AdvReac Intermediate Diarrhea Unverified 09/15/18 11:37 [From Lipitor] codeine AdvReac Nausea Unverified 09/15/18 11:37 lactose AdvReac Diarrhea/Cr Unverified 09/15/18 11:37 amping propoxyphene AdvReac Nausea Unverified 09/15/18 11:37 General Stated Complaint: Orthopedic ANNIE: 3 Review of Systems Review of Systems All systems reviewed & are unremarkable except as noted in HPI and below Constitutional Reports as per HPI, Denies chills and Denies fever(s) Eyes Denies blurry vision ENT Denies dizziness, Denies sore throat and Denies throat swelling Cardiovascular Denies chest pain and Denies dyspnea Respiratory Denies cough and Denies dyspnea Gastrointestinal Denies abdominal pain, Denies diarrhea and Denies vomiting Genitourinary Denies hematuria and Denies dysuria Musculoskeletal Reports back pain and Denies numbness Comments: R upper arm, R shoulder pain Integumentary/Breasts Denies lesions and Denies rash Neurologic Denies dizziness, Denies focal weakness and Denies numbness Allergic/Immunologic Denies throat swelling PFS Social History Smoking/Tobacco Use Status: Former Tobacco Use Alcohol Intake: never Drug use: Never Substance use type: does not use Pets and animals: Yes Pets and animals: cat(s) What type of physical activity do you participate in: none Bree/Shinto: Congregation Special bree needs: No Seatbelt use: always Do you feel safe at home: Yes Do you feel safe in your relationship?: Yes Exam Const General: cooperative and healthy appearing Orientation: alert and awake [facility] Head images: 1. Very minimal ecchymoses c/w broken glasses with very minimal point tenderness. No edema, hematoma, step off, open wounds, active bleeding. Ears: hearing grossly normal bilaterally, external ears normal and TM's normal bilaterally General nose exam: external nose normal Face and sinus: no crepitus Mouth: oral mucosae normal Teeth and gingiva: dentition normal Throat: posterior oropharynx normal Eyes General: appearance normal, both eyes and all related structures Eyelids: eyelids normal Pupils: PERRL EOM: EOM intact bilaterally Other: no signs of entrapment Neck Neck: normal visual inspection Lymphatic: no lymphadenopathy noted Chest Chest: normal inspection of the chest, normal palpation of entire chest wall and no tenderness Resp Effort & Inspection: normal respiratory effort and able to speak in complete sentences Auscultation: clear to auscultation bilaterally Cardio Rate: regular rate Rhythm: regular rhythm GI Inspection: normal to inspection Palpation: soft, not firm, no guarding, no hepatosplenomegaly, no masses and nontender Auscultation: normal bowel sounds Back/Spine/Pelvis Back: no CVA tenderness Cervical Spine: No cervical spinal tenderness Thoracic/Lumbar Spine: thoracic spinal tenderness (lower ) and No lumbar spinal tenderness Pelvis: no pain with anterior-posterior compression Skin General skin exam: no rashes or lesions noted Neuro General: alert, awake and oriented x3 Cranial Nerves: CN's II-XI intact bilaterally Cognition: normal cognition Speech: speech normal Gait: normal gait Motor: muscle tone normal throughout and strength 5/5 throughout Sensory Exam: no sensory deficits noted Extrem Other: Tenderness to palpation of right upper arm, mostly in proximal region. No obvious deformities noted. Able to abduct to 90 degrees but with pain. No tenderness to palpation or pain with ROM of remainder of right upper extremity, left upper extremity, left lower extremity. There is a small superficial area of ecchymosis to right anterior knee, no deformity, no ligamentous instability. No significant edema. Remainder of right lower extremity without tenderness palpation or pain with range of Psych Appearance: grossly normal Mental Status: mental status grossly normal Speech and Movement: speech and movement normal Affect: normal affect Thought Process: normal Course Vital Signs Temperature 98.4 F 09/30/18 13:43 Pulse 65 09/30/18 13:43 Respiratory Rate 16 09/30/18 13:43 Blood Pressure 142/75 H 09/30/18 13:43 Pulse Oximetry 99 09/30/18 13:43 Temperature 98.4 F 09/30/18 13:43 Temperature Source Temporal Artery Scan 09/30/18 13:43 Pulse 65 09/30/18 13:43 Respiratory Rate 16 09/30/18 13:43 Blood Pressure 142/75 H 09/30/18 13:43 Pulse Oximetry 99 09/30/18 13:43 Oxygen Delivery Method Room Air 09/30/18 13:43 Oxygen Flow Rate 0 09/30/18 13:43
[2018-09-30] MEDS: Acetaminophen 325 MG TAB 650 MG PO (14:17)
--- NOTE | 2018-09-30 14:25 | DI.RAD_ITS ---
SYMPTOMS/DIAGNOSIS: MIDLINE BACK PAIN, LOWER T-SPINE PAIN S/P FALL ON RIGHT SIDE, ? ACUTE FRACTURE RIGHT HUMERUS: Two views were obtained. No fracture is seen. THORACIC SPINE: Three views were obtained. No fracture is seen.
== END 2018-09-30 15:37 | disposition home or self-care (01) ==
PROVIDERS: Emergency Provider Physician Assistant; PCP Family Medicine
DX: S40.011A Contusion of right shoulder, initial encounter (principal); S09.90XA Unspecified injury of head, initial encounter; S00.83XA Contusion of other part of head, initial encounter; S80.01XA Contusion of right knee, initial encounter; M54.6 Pain in thoracic spine; W18.30XA Fall on same level, unspecified, initial encounter
CPT/HCPCS: 99284; 72072; 73060

== ENCOUNTER 2019-01-18 13:12 | Emergency (ER) | payer MEDICARE, MEDICAID, SELFPAY ==
[2019-01-18] VITALS (12 sets, daily range): BP systolic 97–161; BP diastolic 58–79; PULSE 59–68; RESP 12–23; TEMP 36.4–36.5; O2SAT 97–99
[2019-01-18] MEDS: Normal Saline 1,000 ML 1000 ML IV (13:34)
[2019-01-18] MEDS: Normal Saline Flush 10 ML SYR IVP (13:34)
[2019-01-18 13:40] LABS: Abs Immature Grans 0.03 k/cumm (0.0-0.09); Absolute Basophil Count 0.04 k/cumm (0.0-0.2); Absolute Eosinophil Count 0.75 k/cumm (0.0-0.7); Absolute Lymphocyte Count 2.36 k/cumm (1.2-3.4); Absolute Monocyte Count 0.75 k/cumm (0.11-0.7); Absolute Neutrophil Count 5.35 k/cumm (1.2-6.7); Basophils % 0.4; Eosinophils % 8.1; HCT 36.4 % (36.0-46.0); HGB 11.6 g/dL (12.0-15.5); Immature Grans % 0.3; Lymphocytes % 25.4; Mean Corp. HGB Concentration 31.9 g/dL (32.0-36.0); Mean Corpuscular Hemoglobin 30.7 pg (27.0-33.0); Mean Corpuscular Volume 96.3 fL (80-95); Mean Platelet Volume 10.4 fL (8.0-11.0); Monocytes % 8.1; Neutrophils % 57.7; Platelet Count 219 x1000/uL (130-400); RBC 3.78 m/cumm (4.00-5.20); RBC Distribution Width 13.1 % (11.7-14.6); White Blood Cell Count 9.28 k/cumm (4.4-10.8)
--- NOTE | 2019-01-18 13:41 | W.ED.GENAD ---
Discharge Plan Disposition Patient Disposition: HOME Condition: Stable Discharge Details Chief Complaint: Dizzy/Sync Clinical Impression: Light-headed Primary Care Provider: Lizabeth Mcmahan ED Provider: Dilip Copeland Home Meds and New Rx's Prescriptions: Continued cholecalciferol (vitamin D3) 3,000 unit tablet 1,000 unit PO DAILY RF: 0 acyclovir 5 % ointment 1 applic Topical Q6H PRN Qty: 30 RF: 1 acyclovir 200 mg capsule 200 mg PO Q4HR PRN (Reason: herpes) Qty: 25 RF: 4 clobetasol 0.05 % ointment 15 gm Topical PRN Qty: 1 RF: 2 albuterol sulfate 90 mcg/actuation HFA aerosol inhaler 2 puff IH QID PRN (Reason: shortness of breath or wheezing) RF: 0 montelukast 10 mg tablet 10 mg PO DAILY Qty: 30 RF: 3 cyanocobalamin (vitamin B-12) 50 mcg tablet 50 mcg PO DAILY RF: 0 cyclobenzaprine 10 mg tablet 10 mg PO HS Qty: 10 RF: 0 multivitamin 1 EACH tablet 1 tab PO DAILY RF: 0 Acidophilus-Pectin 1 EACH capsule 1 cap PO DAILY RF: 0 aspirin 81 MG tablet,chewable 81 mg PO DAILY RF: 0 lidocaine HCl 20 ML jelly in applicator 1 ml Topical BID PRNQty: 20 RF: 1 citalopram [Celexa] 20 mg tablet 20 mg PO DAILY Qty: 90 RF: 12 acetaminophen [Tylenol] 325 MG tablet 325 mg PO Q6H PRN PRNRF: 0 docusate sodium [Colace] 100 mg capsule 100 mg PO BID Qty: 20 RF: 0 Pulmicort Flexhaler 180 MCG aerosol powdr breath activated 360 mcg Inhalation BID PRNRF: 0 Discharge Instructions Instructions: Lightheadedness (ED) Additional Instructions: your symptoms were likely from not eating and drinking and over exertion after the blood draw. if you have chest pain, shortness of breath or feel more ill return to the emergency department Medical Decision Making 68 yo female with hx of hld, depression, who comes in with ems after an episode of feeling lightheaded. She states she was feeling well today and donated blood around 11am. She was then walking around a grocery store and felt lightheaded so sat down and ems was called. Her symptoms resolved by ems arrival and she denies loc. She denies fevers, chest pain, sob, headache, abd pain back pain. She currently has no complaints with clear lungs, no murmurs and spekaing in full sentences laughing intermittently. Suspect orthostasis as she states she didn't eat much or drink much after the blood draw. will obtain lab work to eval for anemia and electrolyte abnormalities and screen for cardiac ischemic though unlikely given no chest pain/sob. No evidence of dvt, no hypoxia or tachycardia or pleuritic chest pain so doubt PE pt's labs show no acute abnormalities and she feels well, ambulating on her own without symptoms, will d/c home as likely orthosasis/vasovagal. Advised f/u with pcp and return precautions given Differential Diagnosis Differential Diagnosis: orthostasis, vasovagal, anemia, nstemi Medical Records Medical records reviewed: Yes I reviewed the patient's medical records. Lab Data Lab results reviewed: Yes I reviewed the patient's lab results. ECG Data Attestation: I personally reviewed and interpreted this ECG (s) as follows: Prior ECG tracings: not available for review Interpretation: sinus rhythm, rate of 60, pr 142, no acute st t wave ischemic findings HPI General Mode of arrival: EMS. Date/Time Provider Initiated Documentation: 01/18/19 13:13. Limitations to Documentation: no limitations. Information obtained by: patient. History of Present Illness 68 year old F presents to the emergency department with the chief complaint of lightheaded, described as moderate, Patient started experiencing this hour(s) (1) and it has been now resolved. No relieving factors improve symptom(s), No exacerbating factors reported . Patient did receive the following treatments prior to arrival, none Related Data Home Medications Medication Instructions Recorded Confirmed Acidophilus-Pectin 1 cap PO DAILY 05/26/12 01/18/19 multivitamin 1 tab PO DAILY 05/26/12 01/18/19 acetaminophen [Tylenol] 325 mg PO Q6H PRN PRN tab 12/24/16 01/18/19 aspirin 81 mg PO DAILY tab-cap 01/07/17 01/18/19 lidocaine HCl 1 ml TOPICAL BID PRN #20 ml 08/16/17 10/11/18 cholecalciferol (vitamin D3) 3,000 1,000 unit PO DAILY tab 02/10/18 01/18/19 unit tablet acyclovir 5 % topical ointment 1 applic TOPICAL Q6H PRN #30 gm 04/28/18 01/18/19 docusate sodium [Colace] 100 mg PO BID #20 cap 05/03/18 10/11/18 acyclovir 200 mg capsule 200 mg PO Q4HR PRN #25 tab-cap 06/02/18 01/18/19 clobetasol 0.05 % topical ointment 15 gm TOPICAL PRN #1 tube 06/02/18 01/18/19 albuterol sulfate 90 mcg/actuation 2 puff IH QID PRN 09/15/18 01/18/19 aerosol inhaler montelukast 10 mg tablet 10 mg PO DAILY #30 tab 09/15/18 10/11/18 citalopram 20 mg tablet 20 mg PO DAILY #90 tab 10/03/18 01/18/19 cyanocobalamin (vitamin B-12) 50 50 mcg PO DAILY 10/11/18 01/18/19 mcg tablet cyclobenzaprine 10 mg tablet 10 mg PO HS #10 tab 10/11/18 10/11/18 Pulmicort Flexhaler 360 mcg INHALATION BID PRN 01/18/19 Previous Rx's Medication Instructions Recorded acetaminophen [Tylenol] 325 mg PO Q6H PRN PRN tab 12/24/16 acyclovir 5 % topical ointment 1 applic TOPICAL Q6H PRN #30 gm 04/28/18 docusate sodium [Colace] 100 mg PO BID #20 cap 05/03/18 acyclovir 200 mg capsule 200 mg PO Q4HR PRN #25 tab-cap 06/02/18 clobetasol 0.05 % topical ointment 15 gm TOPICAL PRN #1 tube 06/02/18 montelukast 10 mg tablet 10 mg PO DAILY #30 tab 09/15/18 citalopram 20 mg tablet 20 mg PO DAILY #90 tab 10/03/18 cyclobenzaprine 10 mg tablet 10 mg PO HS #10 tab 10/11/18 Allergies Allergy/AdvReac Type Severity Reaction Status Date / Time bupropion HCl AdvReac Severe FELT CRAZY Unverified 01/18/19 13:23 [From Wellbutrin] atorvastatin calcium AdvReac Intermediate Diarrhea Unverified 01/18/19 13:23 [From Lipitor] codeine AdvReac Nausea Unverified 01/18/19 13:23 lactose AdvReac Diarrhea/Cr Unverified 01/18/19 13:23 amping propoxyphene AdvReac Nausea Unverified 01/18/19 13:23 General Stated Complaint: Dizzy/Sync ANNIE: 3 Review of Systems All systems reviewed & are unremarkable except as noted in HPI and below Constitutional Constitutional: Denies chills and Denies fever(s) Cardiovascular Cardiovascular: Denies chest pain and Denies dyspnea Respiratory Respiratory: Denies cough and Denies dyspnea Gastrointestinal Gastrointestinal: Denies abdominal pain, Denies nausea and Denies vomiting Musculoskeletal Musculoskeletal: Denies joint swelling [facility] Social History Smoking/Tobacco Use Status: Former Tobacco Use Alcohol Intake: never Drug use: Never Substance use type: does not use Pets and animals: Yes Pets and animals: cat(s) What type of physical activity do you participate in: none Bree/Yarsanism: Catholic Special bree needs: No Seatbelt use: always Do you feel safe at home: Yes Do you feel safe in your relationship?: Yes Exam Const General: no acute distress Orientation: alert HENMT Head: normal to inspection Ears: external ears normal General nose exam: external nose normal Mouth: moist mucous membranes Eyes General: appearance normal, both eyes and all related structures Neck Neck: normal visual inspection Resp Effort & Inspection: normal respiratory effort and able to speak in complete sentences Cardio Rate: regular rate Skin General skin exam: no rashes or lesions noted Neuro General: alert and oriented x3 Extrem General: normal to inspection Psych Mental Status: mental status grossly normal Course Vital Signs Vital signs: Vital Signs Temperature 36.5 C 01/18/19 13:16 Pulse 60 01/18/19 13:16 Respiratory Rate 16 01/18/19 13:16 Blood Pressure 97/67 L 01/18/19 13:16 Temperature 36.5 C 01/18/19 13:16 Temperature Source Temporal Artery Scan 01/18/19 13:16 Pulse 60 01/18/19 13:16 Respiratory Rate 13 01/18/19 13:35 Respiratory Effort Non-Labored 01/18/19 13:35 Respiratory Depth Normal 01/18/19 13:35 Respiratory Pattern Normal 01/18/19 13:35 Blood Pressure 97/67 L 01/18/19 13:16 Blood Pressure Position Supine 01/18/19 13:16 Oxygen Delivery Method Room Air 01/18/19 13:16 Oxygen Flow Rate 0 01/18/19 13:16 Pain Level 0 01/18/19 13:16
[2019-01-18 13:55] LABS: PTT Activated 21.6 sec (21.0-31.4); Prothrombin Time 10.2 sec (9.3-11.0)
[2019-01-18 13:57] LABS: ALT 9 U/L (14-59); AST 18 U/L (15-37); Albumin 2.9 g/dL (3.4-5.0); Alkaline Phosphatase 60 U/L (46-116); Anion Gap 8.9 mmol/L (3-11); BUN 14 mg/dL (7-18); Bilirubin, Total 0.1 mg/dL (0.2-1.0); CO2 24.1 mmol/L (21.0-32.0); CREATININE 0.71 mg/dL (0.55-1.02); Calcium 7.9 mg/dL (8.5-10.1); Chloride 104 mmol/L (98-107); Glucose 130 mg/dL (74-106); Magnesium 1.7 mg/dL (1.8-2.4); NT-proBNP 52 pg/mL (<300); Potassium 3.7 mmol/L (3.5-5.1); Sodium 137 mmol/L (136-145); Total Protein 6.1 g/dL (6.4-8.2)
[2019-01-18 13:59] LABS: Troponin I < 0.05 ng/Ml (<0.06)
== END 2019-01-18 14:37 | disposition home or self-care (01) ==
PROVIDERS: Emergency Provider Emergency Medicine; PCP Family Medicine
DX: R42 Dizziness and giddiness (principal); F41.8 Other specified anxiety disorders; I10 Essential (primary) hypertension
CPT/HCPCS: 36415; 80053; 93005; 96360; 99284; 83735; 83880; 84484; 85025; 85610; 85730; 93010

== ENCOUNTER 2019-08-11 10:25 | Emergency (ER) | payer MEDICARE, MEDICAID, SELFPAY ==
[2019-08-11 10:33] VITALS: BP 171/73; PULSE 73; RESP 16; TEMP 36.6; O2SAT 96
--- NOTE | 2019-08-11 11:00 | DI.RAD_ITS ---
EXAM: XR KNEE LT 3V AP,LAT,ETHAN CLINICAL HISTORY: knee pain. TECHNIQUE: 2D digital imaging was performed. COMPARISON: CR LEFT KNEE COMPLETE from 05/01/2008 CR RIGHT KNEE 3 VIEWS from 04/25/2010 FINDINGS: There are degenerative changes of the femoral tibial joints. No fracture or joint effusion is seen. There is deformity of the distal femoral shaft, partially visualized on the images that may represen t an old fracture. IMPRESSION: No acute abnormality. DATA REPOSITORY: RADIATION DOSE DELIVERED:
--- NOTE | 2019-08-11 11:15 | DI.US_ITS ---
EXAM: US LOWER EXTREMITY VENOUS LT CLINICAL HISTORY: r/o DVT calf pain, leg pain. TECHNIQUE: Lower extremity venous ultrasound performed using grayscale, color-flow, and spectral Dop pler analysis. COMPARISON: No exams were available for comparison FINDINGS: The common femoral, femoral and popliteal veins demonstrate normal compressibility, augmentation, and color Doppler. The posterior tibial veins are patent. The saphenous vein appears free of thrombus. No Rutledge's cyst or hematoma is seen. IMPRESSION: No evidence of DVT. DATA REPOSITORY:
--- NOTE | 2019-08-11 11:15 | DI.RAD_ITS ---
EXAM: XR LUMBAR SPINE COMPLETE CLINICAL HISTORY: pain. TECHNIQUE: 2D digital imaging was performed. COMPARISON: CR LUMBAR SPINE COMPLETE from 07/21/2013 FINDINGS: No acute fracture is seen. There are degenerative disc changes and facet degenerative changes. Ther e is a prominent scoliosis. Calcification is seen in the aorta. Bowel gas pattern is unremarkable. IMPRESSION: Degenerative changes and scoliosis. No acute abnormality. DATA REPOSITORY: RADIATION DOSE DELIVERED:
--- NOTE | 2019-08-11 11:23 | W.ED.GENAD ---
Discharge Plan Disposition Patient Disposition: HOME Condition: Stable Discharge Details Chief Complaint: Orthopedic Clinical Impression: Sciatica, Arthritis Primary Care Provider: Lizabeth Mcmahan ED Provider: Citlali Pineda Home Meds and New Rx's Prescriptions: New methylprednisolone [Medrol (Neto)] 4 mg tablets,dose pack See Rx Instructions .ROUTE .COMPLEX Qty: 21 RF: 0 Continued diazepam 2 mg tablet 2 mg PO BID MDD 2 PRN (Reason: anxiety) Qty: 30 RF: 0 cholecalciferol (vitamin D3) 3,000 unit tablet 1,000 unit PO DAILY RF: 0 clobetasol 0.05 % ointment 15 gm Topical PRN Qty: 1 RF: 2 albuterol sulfate 90 mcg/actuation HFA aerosol inhaler 2 puff IH QID PRN (Reason: shortness of breath or wheezing) RF: 0 cyanocobalamin (vitamin B-12) 50 mcg tablet 50 mcg PO DAILY RF: 0 docusate sodium [Colace] 100 mg capsule 100 mg PO BID PRNRF: 0 acyclovir 200 mg capsule 400 mg PO .5 times daily PRN (Reason: herpes) Qty: 50 RF: 4 multivitamin 1 EACH tablet 1 tab PO DAILY RF: 0 Acidophilus-Pectin 1 EACH capsule 1 cap PO DAILY RF: 0 citalopram [Celexa] 20 mg tablet 20 mg PO DAILY Qty: 90 RF: 12 lidocaine HCl 3 % cream 1 applic TP BID PRN (Reason: pain) Qty: 28.35 RF: 4 acyclovir 5 % ointment 1 applic Topical Q6H PRN Qty: 30 RF: 1 acetaminophen [Tylenol] 325 MG tablet 325 mg PO Q6H PRN PRNRF: 0 Pulmicort Flexhaler 180 MCG aerosol powdr breath activated 360 mcg Inhalation BID PRNRF: 0 Discharge Instructions Instructions: Sciatica (ED) Additional Instructions: Rest activities as tolerated. Use Tylenol 500 mg every 6 hours for pain if needed. Use Medrol Dosepak as prescribed. May hold ibuprofen while taking Medrol Dosepak. No heavy exertion. X-rays reveal some arthritis of the knee as well as degenerative changes and mild scoliosis of the spine. Call PCP for reevaluation within 1 week to be sure improving. Return for any worsening, concerning or alarming symptoms sooner if needed Medical Decision Making <SHANNAN Cardona - Last Filed: 08/11/19 13:27> Is a 69-year-old patient presenting for complaints of chronic back pain with radiating symptoms into her left leg. Patient specifically complaining of left knee pain which appears new in the last 2 weeks. Patient reports posterior left thigh pain, diffuse knee pain which is constant and occasionally sharp, calf pain as well as pain radiating into the arch of the foot. Patient does complain of mild paresthesia of the distal barrett and medial foot. Patient has pain with attempts of ambulation causing some difficulty with ambulation but otherwise denies any focal weakness. Patient denies any ill feeling. On exam patient does have notable lumbar spine tenderness, left knee pain along the joint line, posterior calf pain with palpation. Pulses are intact. No focal weakness. Patient denies any red flags of back pain. No saddle paresthesia, incontinence of urine. Will plan to obtain x-rays of lumbar spine as well as left knee. Patient was concerned with the possibility of blood clots that she reports pain posterior to the knee and in the calf and reported sensation of a ball in the calf. We will plan to obtain ultrasound to rule out DVT although patient has no focal lower extremity swelling at this time I suspect sciatic or lumbar radiculopathy is more likely etiology of patient's symptoms. Patient's exam is somewhat consistent with left knee arthritis that she does have mild crepitus with range of motion and joint line tenderness. Offer Tylenol for patient's discomfort. Patient does prefer 500 mg of Tylenol versus 1000. Patient reports she is quite sensitive to medications. Patient did not take ibuprofen today. Patient did report some improvement in her pain after taking Tylenol. Patient's x-rays do reveal degenerative changes in the femoral-tibial joints, degenerative changes in the lumbar spine. Negative for DVT. After discussion with patient preference is to trial steroids. Will prescribe Medrol Dosepak, recommend hold ibuprofen and use Tylenol for persistence of pain. Patient does have a cane at home which I recommended she use. Patient is due to start physical therapy on Wednesday for her left knee complaints. I recommend she continue to pursue her plan of care including physical therapy. Rice encouraged, rest encouraged, avoidance of deep bending and lifting encouraged. Discussed expectations of improvement and alarming signs and symptoms for which she should return The patient was stable and requested discharge. Prior to discharge, my usual and customary return precautions were reviewed with the patient - this included follow-up instructions and reasons to return to the Emergency Department if conditions worsens, does not improve as expected, or other new concerns arise. <Dilip Copeland MD - Last Filed: 08/11/19 13:06> I had a stst-th-ynes encounter with the patient. I evaluated the patient. I discussed case with GLUELINE WORKER/PA and I reviewed GLUELINE WORKER/PA note and agree with note as documented HPI <SHANNAN Cardona - Last Filed: 08/11/19 13:27> General Date/Time Provider Initiated Documentation: 08/11/19 11:03. HPI Narrative: 69-year-old patient presents for complaints of left leg pain. Patient reports onset of pain 2 weeks ago. Patient denies specific injury or trauma. Patient reports noted left knee pain originally. Patient reports anterior knee pain and moderate posterior knee pain. Patient reports calf pain. Patient complains of paresthesia. When further discussed patient does report mild posterior thigh pain in addition. Patient does complain of chronic thoracic and lumbar spine pain. Again denies any recent injury or trauma. She has been quite active. Patient reports gradual onset of pain over the last 2 weeks. Patient denies any history of sciatica in the past. Patient does report history of left femur fracture from previous trauma. Patient does report paresthesia noted in the barrett and foot. No focal weakness of the leg. Difficulty ambulating due to pain. Patient denies any fevers or chills. Denies any ill feeling. Has been using ibuprofen for pain. Did seek evaluation from PCP 3 days ago for moderate complaints of left knee pain. PCP evaluated patient's knee and recommended increase of ibuprofen of 400 mg daily 3 times a day. Patient reports no significant improvement with this change in medication. Patient's Covid screen reviewed is negative. No ill feeling, fevers, chills, nausea, vomiting. No cough, difficulty breathing shortness of breath or wheezing. No other concerns or complaints at this time. Related Data Home Medications Medication Instructions Recorded Confirmed Acidophilus-Pectin 1 cap PO DAILY 05/26/12 08/11/19 multivitamin 1 tab PO DAILY 05/26/12 08/11/19 acetaminophen [Tylenol] 325 mg PO Q6H PRN PRN tab 12/24/16 08/11/19 cholecalciferol (vitamin D3) 75 1,000 unit PO DAILY tab 02/10/18 08/11/19 mcg (3,000 unit) tablet clobetasol 0.05 % topical ointment 15 gm TOPICAL PRN #1 tube 06/02/18 08/11/19 albuterol sulfate 90 mcg/actuation 2 puff IH QID PRN 09/15/18 08/11/19 aerosol inhaler citalopram 20 mg tablet 20 mg PO DAILY #90 tab 10/03/18 08/11/19 cyanocobalamin (vitamin B-12) 50 50 mcg PO DAILY 10/11/18 08/11/19 mcg tablet Pulmicort Flexhaler 360 mcg INHALATION BID PRN 01/18/19 08/11/19 diazepam 2 mg tablet 2 mg PO BID PRN #30 tab-cap MDD 2 02/16/19 08/11/19 acyclovir 200 mg capsule 400 mg PO .5 times daily PRN #50 05/16/19 08/11/19 tab-cap docusate sodium 100 mg capsule 100 mg PO BID PRN cap 05/16/19 08/11/19 lidocaine HCl 3 % topical cream 1 applic TP BID PRN #28.35 gm 07/17/19 08/11/19 acyclovir 5 % topical ointment 1 applic TOPICAL Q6H PRN #30 gm 08/10/19 08/11/19 methylprednisolone [Medrol (Neto)] See Rx Instructions .ROUTE 08/11/19 .COMPLEX #21 dose pk Previous Rx's Medication Instructions Recorded acetaminophen [Tylenol] 325 mg PO Q6H PRN PRN tab 12/24/16 clobetasol 0.05 % topical ointment 15 gm TOPICAL PRN #1 tube 06/02/18 citalopram 20 mg tablet 20 mg PO DAILY #90 tab 10/03/18 diazepam 2 mg tablet 2 mg PO BID PRN #30 tab-cap MDD 2 02/16/19 acyclovir 200 mg capsule 400 mg PO .5 times daily PRN #50 05/16/19 tab-cap lidocaine HCl 3 % topical cream 1 applic TP BID PRN #28.35 gm 07/17/19 acyclovir 5 % topical ointment 1 applic TOPICAL Q6H PRN #30 gm 06/18/20 methylprednisolone [Medrol (Neto)] See Rx Instructions .ROUTE 08/11/19 .COMPLEX #21 dose pk Allergies Allergy/AdvReac Type Severity Reaction Status Date / Time bupropion HCl AdvReac Severe FELT CRAZY Unverified 08/11/19 10:39 [From Wellbutrin] atorvastatin calcium AdvReac Intermediate Diarrhea Unverified 08/11/19 10:39 [From Lipitor] codeine AdvReac Nausea Unverified 08/11/19 10:39 lactose AdvReac Diarrhea/Cr Unverified 08/11/19 10:39 amping propoxyphene AdvReac Nausea Unverified 08/11/19 10:39 General Stated Complaint: Orthopedic ANNIE: 4 Review of Systems <SHANNAN Cardona - Last Filed: 08/11/19 13:27> All systems reviewed & are unremarkable except as noted in HPI and below PFSH <SHANNAN Cardona - Last Filed: 08/11/19 13:27> Medical History Anxiety Anxiety (Chronic) 05/28/17 CLAUDE-7 SCORE=12 Cervical pain Cervical radicular pain (Chronic 12/29/16) Chronic left shoulder pain (Chronic 12/17/16) Contusion of head (Inactive) Contusion, shoulder /upper arm (Inactive) Depressive disorder Depressive disorder (Chronic) DEPRESSION/ANXIETY Diverticula of colon (Inactive) 08/05/15; COLONOSCOPY; DR. BARAHONA Diverticulitis Fall (Inactive) Female genital prolapse (Chronic 09/06/17) Herpes (Resolved 06/26/14) Hyperlipidemia Hyperlipidemia (Chronic 07/20/13) Increased body mass index (Chronic) Knee pain (Resolved 04/07/10) r - loose bone Lactose intolerance Lactose intolerance (Chronic) Lichen sclerosus et atrophicus Lichen sclerosus et atrophicus (Chronic 08/10/12) Patient instructed to use clobetasol daily ?2 weeks and then twice weekly. Lumbar degenerative disc disease Lumbar degenerative disc disease (Chronic 07/21/13) Mild persistent asthma without complication (Chronic 09/17/16) Stress incontinence Urinary, incontinence, stress female (Chronic 05/11/11) cough incontinence Vaginal atrophy Vulvar atrophy (Chronic 11/06/14) Social History Smoking/Tobacco Use Status: Former Tobacco Use Alcohol Intake: never Drug use: Never Substance use type: does not use Pets and animals: Yes Pets and animals: cat(s) What type of physical activity do you participate in: none Bree/Confucianism: Adventist Special bree needs: No Seatbelt use: always Do you feel safe at home: Yes Do you feel safe in your relationship?: Yes Exam <SHANNAN Cardona - Last Filed: 08/11/19 13:27> Narrative Exam Narrative: CONST: Healthy appearing patient, in no acute distress. Well hydrated. Alert and oriented. HENMT: Head nomocephalic, normal to inspection. Atraumatic. Hearing grossly normal. EYES: General normal appearance. Alignment normal. Eyelids normal. Conjunctiva normal. NECK: Normal visual inspection. FROM. Trachea midline. No Midline tenderness. CHEST: Normal insepection of the chest. RESP: Normal respiratory effort. Speaking full sentences. No cough. No audible wheezing. No retractions. CARDIO: No JVD. MUSCULOSKELETAL: Back: Moderate a cervical, thoracic and lumbar pain with palpation. No obvious step-offs. No CVA tenderness noted bilaterally. Lower extremity exam: Full range of motion of right lower extremity. Left lower extremity straight leg raise intact. Pain with flexion of the knee. Knee pain with internal and external rotation of the hip. No pain with hip range of motion. No palpable tenderness of the left hip. No ecchymosis or warmth. Scar noted along the lateral thigh. No obvious knee effusion. Medial and lateral joint line tenderness noted on exam. Mild posterior knee pain with palpation. Mild calf pain with palpation. Decreased sensation of the left anterior pretibial barrett distally. Pulses are intact distally. No foot drop. SKIN: Normal. Dry. No rashes. NEURO: Alert and awake. Speech clear. PSYCH: Normal affect. Cooperative. Course <SHANNAN Cardona - Last Filed: 08/11/19 13:27> Vital Signs Vital signs: Vital Signs Temperature 36.6 C 08/11/19 10:33 Pulse 73 08/11/19 10:33 Respiratory Rate 16 08/11/19 10:33 Blood Pressure 171/73 H 08/11/19 10:33 Pulse Oximetry 96 08/11/19 10:33 Temperature 36.6 C 08/11/19 10:33 Temperature Source Tympanic 08/11/19 10:33 Pulse 73 08/11/19 10:33 Respiratory Rate 16 08/11/19 10:33 Respiratory Effort Non-Labored 08/11/19 10:38 Blood Pressure 171/73 H 08/11/19 10:33 Blood Pressure Position Sitting 08/11/19 10:33 Pulse Oximetry 96 08/11/19 10:33 Oxygen Delivery Method Room Air 08/11/19 10:33 Oxygen Flow Rate 0 08/11/19 10:33 Pain Level 8 08/11/19 10:44
[2019-08-11] MEDS: Acetaminophen 500 MG TAB PO (11:29)
[2019-08-11 13:03] VITALS: BP 171/76; PULSE 63; TEMP 36.8; O2SAT 96
== END 2019-08-11 13:33 | disposition home or self-care (01) ==
PROVIDERS: Emergency Provider Physician Assistant; PCP Family Medicine
DX: M17.12 Unilateral primary osteoarthritis, left knee (principal); M54.42 Lumbago with sciatica, left side
CPT/HCPCS: 73562; 99284; 72110; 93971

== ENCOUNTER 2019-09-10 09:03 | Emergency (ER) | payer MEDICARE, MEDICAID, SELFPAY ==
[2019-09-10 09:25] VITALS: BP 157/89; PULSE 71; RESP 18; TEMP 36.5; O2SAT 96
--- NOTE | 2019-09-10 10:24 | W.ED.GENAD ---
Discharge Plan Disposition Patient Disposition: HOME Condition: Stable Discharge Details Chief Complaint: Orthopedic Clinical Impression: Bursitis, knee Primary Care Provider: Lizabeth Mcmahan ED Provider: Dejan Salcedo Home Meds and New Rx's Prescriptions: Continued diazepam 2 mg tablet 2 mg PO BID MDD 2 PRN (Reason: anxiety) Qty: 30 RF: 0 cholecalciferol (vitamin D3) 3,000 unit tablet 1,000 unit PO DAILY RF: 0 clobetasol 0.05 % ointment 15 gm Topical PRN Qty: 1 RF: 2 albuterol sulfate 90 mcg/actuation HFA aerosol inhaler 2 puff IH QID PRN (Reason: shortness of breath or wheezing) RF: 0 cyanocobalamin (vitamin B-12) 50 mcg tablet 50 mcg PO DAILY RF: 0 docusate sodium [Colace] 100 mg capsule 100 mg PO BID PRNRF: 0 acyclovir 200 mg capsule 400 mg PO .5 times daily PRN (Reason: herpes) Qty: 50 RF: 4 multivitamin 1 EACH tablet 1 tab PO DAILY RF: 0 Acidophilus-Pectin 1 EACH capsule 1 cap PO DAILY RF: 0 citalopram [Celexa] 20 mg tablet 20 mg PO DAILY Qty: 90 RF: 12 lidocaine HCl 3 % cream 1 applic TP BID PRN (Reason: pain) Qty: 28.35 RF: 4 acyclovir 5 % ointment 1 applic Topical Q6H PRN Qty: 30 RF: 1 acetaminophen [Tylenol] 325 MG tablet 325 mg PO Q6H PRN PRNRF: 0 Pulmicort Flexhaler 180 MCG aerosol powdr breath activated 360 mcg Inhalation BID PRNRF: 0 Discharge Instructions Instructions: Knee Bursitis (ED) Additional Instructions: Knee examination is consistent with bursitis. As we discussed use your cane and/or walker at home, advance activity as tolerated. I do recommend being more aggressive with your kmmb-wjf-yryxwto medications as we discussed, it sounds as though you are suboptimally treating with Tylenol. Rest, elevate, cool and/or warm compresses every 2 hours for 20 minutes. I have given you the name and number of Dr. Wagoner, as well as placed you on the orthopedic list. I recommend contacting his office tomorrow for prompt outpatient reevaluation. Please watch for new or worsening symptoms and return to the ER for any concerns Referrals: Mehrdad Wagoner MD [ [facility] STAFF PHYSICIAN] - Medical Decision Making 69-year-old female presenting with left knee pain that is been going on for a little over a month. There is no distinct trauma. She is already been seen in the ER for this, had an x-ray of her knee, lumbar spine, and ultrasound. Negative for DVT. Did reveal some degenerative changes. Has been seen by her primary care provider as well as physical therapy, unable to be seen by orthopedics. She appears well, nontoxic. She is afebrile. Knee is without erythema, ecchymosis, obvious signs of trauma. Negative Homans sign on the left leg. Examination is most consistent with a pes anserine bursitis. No evidence of localized infection or septic joint. I do not believe that laboratory values or repeat x-ray would be indicated in this case. We discussed our treatment options. Will apply an Aleksander wrap now. Recommend taking vppl-ait-bepgwdt medications more appropriately, resting, elevating, cool and/or warm compresses. If she does not respond well to more conservative therapy, potential for steroid injection may be indicated. I will place her on the orthopedic list to help expedite outpatient care as well as give her the name and number of Dr. Wagoner. I did recommend that she contact their office tomorrow for prompt outpatient reevaluation. She was encouraged to return to the ER for new or worsening symptoms. We also discussed that she will begin using her walker instead of her cane in the meantime Medical Records Medical records reviewed: Yes I reviewed the patient's medical records. HPI General Mode of arrival: ambulatory. Date/Time Provider Initiated Documentation: 09/10/19 09:21. Limitations to Documentation: no limitations. Information obtained by: patient. HPI Narrative: This is a 69-year-old female with history of anxiety, depression, cervical radicular pain, chronic left shoulder pain, back pain with sciatica, hyperlipidemia, presenting with left knee pain that has been present for little over a month. She denies any obvious trauma but thought that at the time pain came on she had simply overdone it in her yard a day or 2 before. She has been seen in the ER, x-ray of the back, knee, ultrasound of the left lower extremity all obtained. Subsequently discharged with steroids which helped a little, has followed up with her primary care provider, has been doing physical therapy, but unable to be seen by orthopedics. She feels as though the pain is not getting any better, possibly even worsening, and not having appointment with orthopedics is extremely frustrating so came to the ER for further evaluation. She reports the pain is in the front medial aspect of her left knee, worse with bearing weight or bending. She is currently denies any back pain or radiation of pain from her back. She reports the pain in her knee is moderate at rest worse with movement. She reports that the pain does radiate from her knee distally associated with occasional paresthesias. She denies any pain in her calf, swelling or erythema. Denies chest pain or shortness of breath. She has been using a cane but reports that symptoms nuclear stress points. She does have a walker at home but has not been using it. She has been taking [id number] Tylenol for discomfort, taking 650 mg per dose. Related Data Home Medications Medication Instructions Recorded Confirmed Acidophilus-Pectin 1 cap PO DAILY 05/26/12 09/10/19 multivitamin 1 tab PO DAILY 05/26/12 09/10/19 acetaminophen [Tylenol] 325 mg PO Q6H PRN PRN tab 12/24/16 09/10/19 cholecalciferol (vitamin D3) 75 1,000 unit PO DAILY tab 02/10/18 09/10/19 mcg (3,000 unit) tablet clobetasol 0.05 % topical ointment 15 gm TOPICAL PRN #1 tube 06/02/18 09/10/19 albuterol sulfate 90 mcg/actuation 2 puff IH QID PRN 09/15/18 09/10/19 aerosol inhaler citalopram 20 mg tablet 20 mg PO DAILY #90 tab 10/03/18 09/10/19 cyanocobalamin (vitamin B-12) 50 50 mcg PO DAILY 10/11/18 09/10/19 mcg tablet Pulmicort Flexhaler 360 mcg INHALATION BID PRN 01/18/19 09/10/19 diazepam 2 mg tablet 2 mg PO BID PRN #30 tab-cap MDD 2 02/16/19 09/10/19 acyclovir 200 mg capsule 400 mg PO .5 times daily PRN #50 05/16/19 09/10/19 tab-cap docusate sodium 100 mg capsule 100 mg PO BID PRN cap 05/16/19 09/10/19 lidocaine HCl 3 % topical cream 1 applic TP BID PRN #28.35 gm 07/17/19 09/10/19 acyclovir 5 % topical ointment 1 applic TOPICAL Q6H PRN #30 gm 08/10/19 09/10/19 Previous Rx's Medication Instructions Recorded acetaminophen [Tylenol] 325 mg PO Q6H PRN PRN tab 12/24/16 clobetasol 0.05 % topical ointment 15 gm TOPICAL PRN #1 tube 06/02/18 citalopram 20 mg tablet 20 mg PO DAILY #90 tab 10/03/18 diazepam 2 mg tablet 2 mg PO BID PRN #30 tab-cap MDD 2 02/16/19 acyclovir 200 mg capsule 400 mg PO .5 times daily PRN #50 05/16/19 tab-cap lidocaine HCl 3 % topical cream 1 applic TP BID PRN #28.35 gm 07/17/19 acyclovir 5 % topical ointment 1 applic TOPICAL Q6H PRN #30 gm 08/10/19 Allergies Allergy/AdvReac Type Severity Reaction Status Date / Time bupropion HCl AdvReac Severe FELT CRAZY Verified 09/10/19 09:28 [From Wellbutrin] atorvastatin calcium AdvReac Intermediate Diarrhea Verified 09/10/19 09:28 [From Lipitor] codeine AdvReac Nausea Verified 09/10/19 09:28 lactose AdvReac Diarrhea/Cr Verified 09/10/19 09:28 amping propoxyphene AdvReac Nausea Verified 09/10/19 09:28 General Stated Complaint: Orthopedic ANNIE: 4 Review of Systems Constitutional Constitutional: Denies fever(s) and Denies weakness Cardiovascular Cardiovascular: Denies chest pain and Denies dyspnea Respiratory Respiratory: Denies cough, Denies dyspnea and Denies wheezing Musculoskeletal Musculoskeletal: Denies muscle weakness, Denies numbness and Reports tingling Integumentary/Breasts Skin/Breast: Denies rash Neurologic Neurologic: Denies numbness, Reports tingling and Denies weakness Allergic/Immunologic Allergic/Immunologic: Denies wheezing [facility] Medical History Anxiety Anxiety (Chronic) 05/28/17 CLAUDE-7 SCORE=12 Cervical pain Cervical radicular pain (Chronic 12/29/16) Chronic left shoulder pain (Chronic 12/17/16) Contusion of head (Inactive) Contusion, shoulder /upper arm (Inactive) Depressive disorder Depressive disorder (Chronic) DEPRESSION/ANXIETY Diverticula of colon (Inactive) 08/05/15; COLONOSCOPY; DR. BARAHONA Diverticulitis Fall (Inactive) Female genital prolapse (Chronic 09/06/17) Herpes (Resolved 06/26/14) Hyperlipidemia Hyperlipidemia (Chronic 07/20/13) Increased body mass index (Chronic) Knee pain (Resolved 04/07/10) r - loose bone Lactose intolerance Lactose intolerance (Chronic) Lichen sclerosus et atrophicus Lichen sclerosus et atrophicus (Chronic 08/10/12) Patient instructed to use clobetasol daily ?2 weeks and then twice weekly. Lumbar degenerative disc disease Lumbar degenerative disc disease (Chronic 07/21/13) Mild persistent asthma without complication (Chronic 09/17/16) Stress incontinence Urinary, incontinence, stress female (Chronic 05/11/11) cough incontinence Vaginal atrophy Vulvar atrophy (Chronic 11/06/14) Surgical History Abdominal hysterectomy (~1998) Bilateral salpingectomy with oophorectomy (~1998) Bladder Surgery (~1998) Colonoscopy - MAC (~2004) Fracture, Closed Treatment LEFT FEMUR (1971) H/O bilateral salpingo-oophorectomy (Resolved) 02/22/98 H/O bladder repair surgery (Resolved) 02/22/98 History of bilateral salpingo-oophorectomy (Inactive) History of bladder repair surgery (Inactive) S/P abdominal hysterectomy (Resolved) 02/22/98 Status post abdominal hysterectomy (Inactive) Family History Mother Essential hypertension Father Heart disease Hyperlipidemia Sister No problems noted. Brother Essential hypertension Hyperlipidemia Grandfather Heart disease Stroke Grandfather Heart disease Grandmother Personal history of malignant neoplasm BREAST Grandmother Personal history of malignant neoplasm STOMACH Son No problems noted. Social History Smoking/Tobacco Use Status: Former Tobacco Use Alcohol Intake: former Drug use: Never Substance use type: does not use Counseling given: Yes Counseling provided: none Caregiver/Support person: No Household members: family Housing: house Communication Needs: None Do you need help understanding health information?: Rarely Pets and animals: Yes Pets and animals: cat(s) Sexually active: No Do you think of yourself as: straight/heterosexual Current gender identity: female What is your relationship status?: How often do you talk on the phone with friends or family?: once per week How often do you get together with friends or relatives?: once per week How often do you attend pentecostalism or restorationist services?: 1-3 times per year Do you belong to any clubs or organized social groups?: no Panel score (0-1 are the most socially isolated patients): 0 What type of physical activity do you participate in: none Duration: 15-30 minutes/day Frequency: 3-4 times per week Bree/Religious: Yazidi Special bree needs: No Seatbelt use: always Helmet use: Yes Drive intox or ride w/intox public transit trolley driver: No Do you feel safe at home: Yes Do you feel safe in your relationship?: Yes Exam Const General: cooperative, healthy appearing, comfortable and no acute distress Orientation: alert, awake and oriented x3 HENMT Head: normal to inspection, normocephalic and atraumatic Mouth: moist mucous membranes Eyes Conjunctivae: conjunctivae normal Neck Neck: normal visual inspection, full ROM, trachea midline and supple Resp Effort & Inspection: normal respiratory effort and able to speak in complete sentences Auscultation: clear to auscultation bilaterally Cardio Rate: regular rate Rhythm: regular rhythm Skin General skin exam: no rashes or lesions noted Neuro General: patient alert, patient awake, moves all extremities and no focal motor deficits Sensory Exam: no sensory deficits noted Extrem Right lower extremity: normal to inspection, full ROM and normal capillary refill Left lower extremity: full ROM, normal capillary refill and knee Details: tenderness (Inferior to the patella, medial aspect), swelling (Inferior to the patella, medial aspect), normal ROM and knee ligament exam normal; no ecchymosis and no unusual warmth Psych Appearance: grossly normal Mental Status: mental status grossly normal Course Vital Signs Vital signs: Vital Signs Temperature 36.5 C 09/10/19 09:25 Pulse 71 09/10/19 09:25 Respiratory Rate 18 09/10/19 09:25 Blood Pressure 157/89 H 09/10/19 09:25 Pulse Oximetry 96 09/10/19 09:25 Temperature 36.5 C 09/10/19 09:25 Temperature Source Skin 09/10/19 09:25 Pulse 71 09/10/19 09:25 Respiratory Rate 18 09/10/19 09:25 Respiratory Effort Non-Labored 09/10/19 09:27 Blood Pressure 157/89 H 09/10/19 09:25 Blood Pressure Position Sitting 09/10/19 09:25 Pulse Oximetry 96 09/10/19 09:25 Oxygen Delivery Method Room Air 09/10/19 09:25 Oxygen Flow Rate 0 09/10/19 09:25 Pain Level 10 09/10/19 09:32
== END 2019-09-10 10:43 | disposition home or self-care (01) ==
PROVIDERS: Emergency Provider Physician Assistant; PCP Family Medicine
DX: M70.52 Other bursitis of knee, left knee (principal)
CPT/HCPCS: 99282; 99283

== ENCOUNTER 2019-09-18 00:55 | Outpatient (CLI) | payer MEDICARE, MEDICAID, SELFPAY ==
--- NOTE | 2019-09-18 15:19 | DI.MAMMO_ITS ---
EXAM: MAMMO SCREENING CLINICAL HISTORY: screening,z12.39 TECHNIQUE: Mammograms were interpreted according to the usual protocol including computer analysis w [employer] CAD system, tomosynthesis and C-view imaging. COMPARISON: 2010 through 2017 FINDINGS: the breasts are composed of heterogeneously dense fibroglandular densities, Breast Density category C . No suspicious masses or suspicious microcalcifications are seen. Scattered benign calcifications are again noted. No skin thickening or abnormal axillary lymph nodes are seen. There has been no significant change from prior exams. IMPRESSION: BI-RADS Category 2 - Benign Findings Yearly screening mammography is recommended. Breast Density Category C, heterogeneously dense tissue which decreases the sensitivity of the mammog alex. The mammogram demonstrates the patient's breast tissue is dense. Dense breast tissue is very common a nd is not abnormal but dense breast tissue can make it harder to find cancer on a mammogram. Also, de nse breast tissue may increase breast cancer risk. This information about the result of the mammogram report was provided to the patient to raise their awareness. Use this report when you speak with the patient about their risks for breast cancer, which includes their family history. At that time, you may recommend additional screening tests (Ultrasound or MRI) as they might be useful based on their r isk. A negative radiographic report should not delay biopsy if a dominant or clinically suspicious mass is present. Up to ten percent of cancers are not identified on mammography. A negative report may reinforce clinical impression. Adenosis and dense breasts may obscure an underlying neoplasm. False positive reports average 6 to 10%.
== END 2019-09-18 01:15 ==
PROVIDERS: PCP Family Medicine; Visit Provider Family Medicine
DX: Z12.31 Encounter for screening mammogram for malignant neoplasm of breast (principal); R92.2 Inconclusive mammogram
CPT/HCPCS: 77063; 77067

== ENCOUNTER → 2019-10-04 13:38 | Outpatient (BNVA) | payer MEDICARE, MEDICAID, SELFPAY | PROVIDERS: PCP Family Medicine; Referring Provider Family Medicine; Visit Provider Student in an Organized Health Care Education/Training Program | DX: M70.52 Other bursitis of knee, left knee (principal) | CPT/HCPCS: 99204; 99214 ==

== ENCOUNTER 2019-10-11 01:18 | Outpatient (CLI) | payer MEDICARE, MEDICAID, SELFPAY ==
--- NOTE | 2019-10-11 07:00 | DI.MRI_ITS ---
EXAM: MR LOWER JOINT LT WO CLINICAL HISTORY: bursitis,medial meniscus tear,m70.52,s83.242a,m70.50. TECHNIQUE: Multiplanar multisequence MRI was performed. COMPARISON: CR XR KNEE LT 3V AP,LAT,ETHAN from 08/11/2019 FINDINGS: There is a large joint effusion and a small Rutledge's cyst. The cruciate ligaments, lateral collateral ligament complex and extensor mechanism appear intact. There is edema around the medial collateral ligament but no discrete tear. Both menisci are peripherally displaced, consistent with degenerative changes. There is a stellate appearing tear in the posterior horn of the medial meniscus near the r oot with linear, horizontal extension peripherally. The lateral meniscus shows linear high signal in the anterior horn and body with extension to the inferior surface. No cartilage defects are seen. There is some cartilage thinning over the femoral condyles and tibial plateaus. There is edema in th e medial tibial plateau consistent with contusion. There is a subcortical micro fracture. There is a small ovoid density between the medial femoral condyle and medial collateral ligament which appears to represent a loose body. It is seen on plain films. IMPRESSION: 1. Medial and lateral meniscal tears. Underlying degenerative changes of the menisci. 2. Contusion in subcortical microfracture of the medial tibial plateau. 3. Question of medial collateral ligament sprain. 4. Joint effusion and small Rutledge's cyst. Medially located loose body. DATA REPOSITORY:
== END 2019-10-11 01:38 ==
PROVIDERS: PCP Family Medicine; Visit Provider Student in an Organized Health Care Education/Training Program
DX: S83.242A Other tear of medial meniscus, current injury, left knee, initial encounter (principal); S83.282A Other tear of lateral meniscus, current injury, left knee, initial encounter; M25.462 Effusion, left knee; M71.22 Synovial cyst of popliteal space [Baker], left knee
CPT/HCPCS: 73721

== ENCOUNTER → 2019-10-18 08:15 | Outpatient (BNVA) | payer MEDICARE, MEDICAID, SELFPAY | PROVIDERS: PCP Family Medicine; Referring Provider Family Medicine; Visit Provider Student in an Organized Health Care Education/Training Program | DX: S83.242A Other tear of medial meniscus, current injury, left knee, initial encounter (principal); S83.206A Unspecified tear of unspecified meniscus, current injury, right knee, initial encounter; X58.XXXA Exposure to other specified factors, initial encounter; M65.331 Trigger finger, right middle finger; M65.332 Trigger finger, left middle finger | CPT/HCPCS: 99214 ==

== ENCOUNTER 2019-11-27 09:56 | Outpatient (CLI) | payer MEDICARE, MEDICAID, SELFPAY ==
[2019-11-29 05:21] LABS: Patient Race White; SARS-CoV-2 RNA Undetected (Undetected); SARS-CoV-2 Specimen Source Nasopharynx
== END 2019-11-27 10:16 ==
PROVIDERS: PCP Family Medicine; Visit Provider Student in an Organized Health Care Education/Training Program
DX: J02.9 Acute pharyngitis, unspecified (principal); R51.9 Headache, unspecified; R09.81 Nasal congestion
CPT/HCPCS: U0003

== ENCOUNTER → 2020-01-31 09:49 | Outpatient (BNVA) | payer MEDICARE, MEDICAID, SELFPAY | PROVIDERS: PCP Family Medicine; Referring Provider Family Medicine; Visit Provider Student in an Organized Health Care Education/Training Program | DX: S60.211A Contusion of right wrist, initial encounter (principal); S60.212A Contusion of left wrist, initial encounter; W01.0XXA Fall on same level from slipping, tripping and stumbling without subsequent striking against object, initial encounter; Z98.890 Other specified postprocedural states | CPT/HCPCS: 99213 ==

== ENCOUNTER 2020-03-25 09:47 | Outpatient (CLI) | payer MEDICARE, MEDICAID, SELFPAY ==
[2020-03-26 15:08] LABS: COVID-19 RT-PCR UVMMC Result Negative (Negative)
== END 2020-03-25 10:07 ==
PROVIDERS: PCP Family Medicine; Visit Provider Family Medicine
DX: Z20.822 Contact with and (suspected) exposure to COVID-19 (principal)
CPT/HCPCS: U0003; U0005

== ENCOUNTER 2020-03-29 01:16 | Outpatient (CLI) | payer MEDICARE, MEDICAID, SELFPAY ==
[2020-03-29 09:11] LABS: HCT 42.2 % (36.0-46.0); HGB 13.9 g/dL (11.2-15.7); MCH 31.4 pg (27.0-33.0); MCHC 32.9 % (32.0-36.0); MCV 95.5 fL (80-95); MPV 10.3 fL (8.0-11.0); Platelet Count 239 10^3/uL (130-400); RBC 4.42 10^6/uL (3.93-5.22); RDW 12.8 % (11.7-14.6); RDW-SD 45.5 fL; WBC 7.39 10^3/uL (4.4-10.8)
== END 2020-03-29 01:17 | disposition home or self-care (01) ==
LOC: LBO 01:16
PROVIDERS: PCP Family Medicine; Visit Provider Family Medicine
DX: D64.9 Anemia, unspecified (principal)
CPT/HCPCS: 36415; 85027

== ENCOUNTER 2020-04-29 18:43 | Outpatient (REF) | payer MEDICARE, MEDICAID, SELFPAY ==
[2020-05-01 12:57] LABS: COVID-19 RT-PCR UVMMC Result Negative (Negative)
== END 2020-04-29 18:44 | disposition home or self-care (01) ==
LOC: LBN 18:43
PROVIDERS: PCP Family Medicine; Visit Provider Nurse Practitioner Family
DX: Z20.822 Contact with and (suspected) exposure to COVID-19 (principal)
CPT/HCPCS: U0003; U0005

== ENCOUNTER 2020-06-04 14:55 | Outpatient (CLI) | payer MEDICARE, MEDICAID, SELFPAY ==
--- NOTE | 2020-06-04 12:40 | DI.RAD_ITS ---
EXAM: XR KNEE RT 3V AP,LAT,ETHAN CLINICAL HISTORY: r knee pain after a fall, M25.561 pain RT knee. TECHNIQUE: 2D digital imaging was performed. COMPARISON: CR XR KNEE LT 3V AP,LAT,ETHAN from 08/11/2019 FINDINGS: In the medial joint compartment there is marked narrowing of the joint space and periarticular spurri ng present. Mild periarticular spurring is seen posterior patella. The bones are intact and normall y mineralized. No suspicious lytic or sclerotic lesions are seen. There is a joint effusion. Soft tissues are unremarkable. IMPRESSION: Moderately severe degenerative changes in the right knee particularly in the medial femoral tibial jayant int. DATA REPOSITORY: RADIATION DOSE DELIVERED:
== END 2020-06-04 15:15 ==
PROVIDERS: PCP Family Medicine; Visit Provider Family Medicine
DX: M25.561 Pain in right knee (principal); M17.11 Unilateral primary osteoarthritis, right knee
CPT/HCPCS: 73562

== ENCOUNTER 2020-08-02 13:00 | Outpatient (CLI) | payer MEDICARE, MEDICAID, SELFPAY ==
--- NOTE | 2020-08-02 10:30 | DI.CT_ITS ---
Exam(s) CT HEAD WO EXAM: CT HEAD WO CLINICAL HISTORY: SPEARS s/p fall, W19.XXXA. TECHNIQUE: Imaging Protocol: Axial computed tomography images with coronal and sagittal reformatted images were created and reviewed COMPARISON: CT CT HEAD WO from 07/06/2018 FINDINGS: Ventricles and Extra axial spaces: Normal in size and morphology for the patient's age. Hemorrhage: None. Cerebral parenchyma: Normal. Midline shift: None. Brainstem/Cerebellum: Normal. Calvarium: Normal. No orbital fracture is seen. Visualized Paranasal sinuses/Mastoids: There is some partial opacification of several ethmoid sinuses . There is mucosal thickening of the right maxillary sinus and some mucous retention at the floor of the left maxillary sinus. Soft Tissues: Unremarkable. IMPRESSION: No acute intracranial process. RADIATION DOSE DELIVERED: 653.92mGy.cm Total DLP DATA REPOSITORY: All CT scans at this facility are submitted to the National Radiology Data Registry (NRDR) Dose Index Registry (DIR) with the [employer] (ACR). RADIATION OPTIMIZATION: All CT scans at this facility use at least one of these dose optimization te chniques: automated exposure control; mA and/or kV adjustment per patient size (includes targeted exa ms where dose is matched to clinical indication); or iterative reconstruction.
--- NOTE | 2020-08-02 13:42 | DI.RAD_ITS ---
Exam(s) XR SHOULDER LT COMPLETE 2+V EXAM: XR SHOULDER LT COMPLETE 2+V CLINICAL HISTORY: left shoulder pain s/p fall, W19.XXXA. TECHNIQUE: 2D digital imaging was performed. COMPARISON: No exams were available for comparison FINDINGS: BONES: No acute fracture is present. No bony destructive lesion is seen.Spurring is seen at the great er tuberosity. There are subchondral cysts at the greater tuberosity. JOINTS: No dislocation present. There are degenerative changes at the AC joint. There is spurring a t the margin of the glenoid. SOFT TISSUE: Normal. IMPRESSION: Degenerative changes. No acute abnormality. DATA REPOSITORY: RADIATION DOSE DELIVERED:
--- NOTE | 2020-08-02 13:43 | DI.RAD_ITS ---
Exam(s) XR THORACIC SPINE COMPLETE EXAM: XR THORACIC SPINE COMPLETE CLINICAL HISTORY: thoracic pain s/p fall, W19.XXXA. TECHNIQUE: 2D digital imaging was performed. COMPARISON: CR XR thoracic spine complete from 09/30/2018 FINDINGS: There is no evidence acute fracture. There is scoliosis of the thoracolumbar junction. There are d egenerative disc changes. The heart size is normal. The visualized portions of the lungs appear michelle ar. IMPRESSION: Degenerative changes and scoliosis. No acute abnormality. DATA REPOSITORY: RADIATION DOSE DELIVERED:
--- NOTE | 2020-08-02 13:43 | DI.RAD_ITS ---
Exam(s) XR CERVICAL SPINE COMP 4-5V EXAM: XR CERVICAL SPINE COMP 4-5V CLINICAL HISTORY: neck pain s/p fall, W19.XXXA. TECHNIQUE: 2D digital imaging was performed. COMPARISON: CR XR thoracic spine complete from 09/30/2018 FINDINGS: There is no evidence of fracture. The alignment appears normal. Degenerative disc changes and facet degenerative changes are seen. Neural foraminal narrowing is seen on the left side at C5-6 and C6-7 . IMPRESSION: Degenerative changes. No acute abnormality DATA REPOSITORY: RADIATION DOSE DELIVERED:
--- NOTE | 2020-08-02 13:43 | DI.RAD_ITS ---
Exam(s) XR FACIAL BONES LIMITED EXAM: XR FACIAL BONES LIMITED CLINICAL HISTORY: left orbital pain/swelling s/p fall, W19.XXXA. TECHNIQUE: 2D digital imaging was performed. Two views. COMPARISON: CT CT HEAD WO from 08/02/[address] HEAD WO from 08/02/2020 FINDINGS: BONES: No evidence of fracture. Head CT included the orbits and no fracture is seen. SOFT TISSUES: Unremarkable. IMPRESSION: Opacity at the floor of left maxillary sinus. Sinus disease noted on CT. DATA REPOSITORY: RADIATION DOSE DELIVERED:
== END 2020-08-02 13:20 ==
PROVIDERS: PCP Family Medicine; Visit Provider Nurse Practitioner Family
DX: M54.6 Pain in thoracic spine (principal); H57.12 Ocular pain, left eye; M54.2 Cervicalgia; M25.512 Pain in left shoulder; R51.9 Headache, unspecified; W19.XXXA Unspecified fall, initial encounter
CPT/HCPCS: 70140; 70450; 72050; 72072; 73030

== ENCOUNTER 2021-02-03 19:46 | Outpatient (REF) | payer MEDICARE, MEDICAID, SELFPAY ==
[2021-02-04 15:23] LABS: COVID-19 RT-PCR UVMMC Result Negative (Negative)
== END 2021-02-03 19:47 | disposition home or self-care (01) ==
LOC: LBN 19:46
PROVIDERS: PCP Family Medicine; Visit Provider Family Medicine
DX: R05.9 Cough, unspecified (principal); R51.9 Headache, unspecified; Z20.822 Contact with and (suspected) exposure to COVID-19
CPT/HCPCS: U0003; U0005

== ENCOUNTER 2021-04-17 17:51 | Outpatient (REF) | payer MEDICARE, MEDICAID, SELFPAY ==
[2021-04-19 12:17] LABS: COVID-19 RT-PCR UVMMC Result Negative (Negative)
== END 2021-04-17 17:52 | disposition home or self-care (01) ==
LOC: LBN 17:51
PROVIDERS: PCP Family Medicine; Visit Provider Nurse Practitioner Family
DX: Z20.822 Contact with and (suspected) exposure to COVID-19 (principal)
CPT/HCPCS: U0003

== ENCOUNTER 2021-10-20 04:36 | Outpatient (CLI) | payer MEDICARE, MEDICAID, SELFPAY ==
[2021-10-20 12:56] LABS: Abs Immature Grans 0.05 10^3/uL (0.0-0.06); Absolute Basophil Count 0.08 10^3/uL (0.0-0.2); Absolute Eosinophil Count 0.78 10^3/uL (0.0-0.7); Absolute Lymphocyte Count 2.08 10^3/uL (1.2-3.4); Absolute Monocyte Count 0.79 10^3/uL (0.1-0.8); Basophils % 0.8; Eosinophils % 8.1; HCT 42.5 % (36.0-46.0); HGB 13.8 g/dL (11.2-15.7); Immature Grans % 0.5; Lymphocytes % 21.5; MCH 31.2 pg (27.0-33.0); MCHC 32.5 % (32.0-36.0); MCV 96 fL (80-95); MPV 10.7 fL (8.0-11.0); Monocytes % 8.2; Neutrophils % 60.9; Platelet Count 247 10^3/uL (130-400); RBC 4.43 10^6/uL (3.93-5.22); RDW 13.2 % (11.7-14.6); RDW-SD 47.5 fL; WBC 9.68 10^3/uL (4.4-10.8)
[2021-10-20 13:22] LABS: ALT 16 U/L (14-59); AST 20 U/L (15-37); Albumin 3.5 g/dL (3.4-5.0); Alkaline Phosphatase 65 U/L (46-116); Anion Gap 8.9 mmol/L (3-11); BUN 21 mg/dL (7-18); Bilirubin, Total 0.3 mg/dL (0.2-1.0); CO2 28.1 mmol/L (21.0-32.0); CREATININE 0.6 mg/dL (0.55-1.02); Calcium 8.9 mg/dL (8.5-10.1); Chloride 103 mmol/L (98-107); Estimated GFR 94.72 (mL/min/1.73m2); Ferritin 82 ng/mL (8-252); Glucose 95 mg/dL (74-106); Potassium 4.1 mmol/L (3.5-5.1); Sodium 140 mmol/L (136-145); Total Protein 7.5 g/dL (6.4-8.2)
[2021-10-20 13:50] LABS: Total Iron Binding Capacity 312 ug/dL (250-450)
== END 2021-10-20 04:37 | disposition home or self-care (01) ==
LOC: LBO 04:36
PROVIDERS: PCP Family Medicine; Visit Provider Nurse Practitioner Family
DX: I10 Essential (primary) hypertension (principal); R53.83 Other fatigue; D64.9 Anemia, unspecified; R05.8 Other specified cough
CPT/HCPCS: 36415; 80053; 82728; 83550; 84443; 85025

== ENCOUNTER 2021-11-23 15:38 | Emergency (ER) | payer MEDICARE, MEDICAID, SELFPAY ==
[2021-11-23] VITALS (15 sets, daily range): BP systolic 131–178; BP diastolic 60–96; PULSE 55–88; RESP 16–20; TEMP 36.8–37.3; O2SAT 96–98
--- NOTE | 2021-11-23 16:45 | DI.CT_ITS ---
Exam(s) CT ABDOMEN PELVIS W EXAM: CT ABDOMEN PELVIS W CLINICAL HISTORY: left lower abdomen pain. TECHNIQUE: Imaging Protocol: Axial computed tomography images with coronal and sagittal reformatted images were created and reviewed CONTRAST MATERIAL: Intravenous: Omnipaque 350 Contrast volume:100 ml Oral: no COMPARISON: CT CT ABDOMEN PELVIS W from 07/06/2018 FINDINGS: ABDOMEN: Lung Bases: Normal where visualized. Liver: Normal density. Cyst. Gallbladder and biliary tract: No radiodense calculus or dilation. Pancreas: Normal density, no abnormal calcifications or inflammatory process. Spleen: Normal. Kidneys: Normal size, contour and axis. No radiodense stones or obstructive uropathy. No masses seen. Adrenal glands: No masses seen. Abdominal Aorta: Abdominal portion non-dilated. Bladder: No gross wall thickening. No calculi.No focal mass. Bowel: Diverticulum descending duodenum. High-density material in the right side of the colon likely represents ingested tablets. No obstruction or bowel wall thickening. Appendix normal. Peritoneal cavity: No ascites, collection or mesenteric inflammatory response. Bones: Scoliosis and degenerative changes are noted in the spine. Reproductive organs: Status post hysterectomy. A Lymph nodes: Unremarkable. Impression: Unremarkable CT scan of the abdomen and pelvis. RADIATION DOSE DELIVERED: 940.46mGy.cm Total DLP DATA REPOSITORY: All CT scans at this facility are submitted to the National Radiology Data Registry (NRDR) Dose Index Registry (DIR) with the [employer] (ACR). RADIATION OPTIMIZATION: All CT scans at this facility use at least one of these dose optimization te chniques: automated exposure control; mA and/or kV adjustment per patient size (includes targeted exa ms where dose is matched to clinical indication); or iterative reconstruction.
--- NOTE | 2021-11-23 16:46 | W.ED.GENAD ---
Discharge Plan Disposition Patient Disposition: HOME Condition: Stable Discharge Details Clinical Impression: LLQ abdominal pain Primary Care Provider: Lizabeth Mcmahan ED Provider: Dilip Copeland Home Meds and New Rx's Prescriptions: New ciprofloxacin HCl 500 mg tablet 500 mg PO BID Qty: 14 0RF metronidazole 500 mg tablet 500 mg PO Q8H Qty: 21 0RF Continued fluticasone propionate [Flovent HFA] 110 mcg/actuation HFA aerosol inhaler 2 puff inhalation BID Qty: 12 4RF cholecalciferol (vitamin D3) 3,000 unit tablet 1,000 unit PO DAILY cyanocobalamin (vitamin B-12) 50 mcg tablet 50 mcg PO DAILY docusate sodium [Colace] 100 mg capsule 100 mg PO BID PRN betamethasone, augmented 0.05 % ointment 1 applic topical BID Qty: 50 4RF Rx Instructions: apply tiny amount to vulva twice daily amoxicillin-pot clavulanate 875-125 mg tablet 1 tab PO TID Qty: 21 0RF multivitamin 1 EACH tablet 1 tab PO DAILY Acidophilus-Pectin 1 EACH capsule 1 cap PO DAILY lidocaine HCl 3 % cream 1 applic TP BID PRN (Reason: pain) Qty: 28.35 4RF acyclovir 5 % ointment 1 applic Topical Q6H PRN Qty: 30 1RF Rx Instructions: apply a small dab to infected area acyclovir 200 mg capsule 400 mg PO .5 times daily PRN (Reason: herpes) Qty: 50 4RF Rx Instructions: loratadine [Claritin] 10 mg tablet 10 mg PO DAILY PRN (Reason: allergy symptoms) Qty: 30 3RF Rx Instructions: Take one tab daily as needed for allergy symptoms citalopram [Celexa] 20 mg tablet 20 mg PO DAILY Qty: 90 5RF albuterol sulfate 90 mcg/actuation HFA aerosol inhaler 2 puff IH Q6H PRN (Reason: shortness of breath or wheezing) Qty: 18 4RF acetaminophen [Tylenol] 325 MG tablet 325 mg PO Q6H PRN PRN0RF buspirone 5 mg tablet 1 tab PO DAILY Label Comments: TAKE ONE TABLET BY MOUTH THREE TIMES A DAY Discharge Instructions Additional Instructions: you can take 1000mg tylenol and 600mg ibuprofen every 6 hours for pain as needed if you are not improving by Wednesday you can stop the augmentin and start the ciprofloxacin and metronidazole follow up with your primary care provider especially if not improving in 7-10 days if you feel more ill, have severe worsening pain or persistent vomit return to the emergency department Medical Decision Making 71 yo female with hx of diverticulitis comes in with llq pain. She states it started last week and went to [facility] care and was placed on augmentin. Despite this she still has llq pain she rates at 7/10 so came here. Denies fevers, chills, n/v, urinary symptoms, has had diarrhea. She is stable on arrival though appears in pain. She has tenderness in the llq without guarding or rebound, no upper abdomen tendernes. Given the continued pain despite abx will obtain cbc, cmp, lipase and ct abdomen pelvis to evaluate for possible perforation vs abscess. labs and imaging unremarkable, she feels significantly improved and has no tenderness now. Discussed with her and she is stable for d/c, she did inquire about switching abx. I advised at this time it seems to be improving and will provide her with prescriptions for cipro flagyl if she is not improving pain galvez in 2-3 days. Advised to f/u with pcp and return precautions given Differential Diagnosis Differential Diagnosis: diverticulitis, abscess Medical Records Medical records reviewed: Yes I reviewed the patient's medical records. Imaging Data Radiologic Study: Attestation: I personally reviewed and interpreted this imaging study as follows: Imaging: CT Scan Radiologist's impression: no acute findings Lab Data Lab results reviewed: Yes I reviewed the patient's lab results. HPI General Mode of arrival: ambulatory. Date/Time Provider Initiated Documentation: 11/23/21 16:24. Limitations to Documentation: no limitations. Information obtained by: patient. History of Present Illness 71 year old F presents to the emergency department with the chief complaint of left lower abdomen pain, described as moderate, with intensity rated at 7. Quality is described as sharp, and is localized to the abdomen. Patient reports no radiation. Patient started experiencing this day(s) (4) and it has been constant. No relieving factors improve symptom(s), No exacerbating factors reported . Patient notes other (diarrhea); denies fever/chills and nausea/vomiting. Patient did receive the following treatments prior to arrival, none Related Data Home Medications Medication Instructions Recorded Confirmed Lactobacillus acidophilus-pectin 1 cap PO DAILY 05/26/12 11/23/21 capsule (Acidophilus-Pectin capsule) multivitamin 1 tab PO DAILY 05/26/12 11/23/21 acetaminophen 325 mg tablet 325 mg PO Q6H PRN PRN 12/24/16 11/23/21 (Tylenol) cholecalciferol (vitamin D3) 75 1,000 unit PO DAILY 02/10/18 11/23/21 mcg (3,000 unit) tablet cyanocobalamin (vitamin B-12) 50 50 mcg PO DAILY 10/11/18 11/23/21 mcg tablet docusate sodium 100 mg capsule 100 mg PO BID PRN 05/16/19 11/23/21 (Colace) lidocaine HCl 3 % topical cream 1 applic topical BID PRN pain 07/17/19 11/23/21 #28.35 grams acyclovir 5 % topical ointment 1 applic topical Q6H PRN #30 grams 08/10/19 11/23/21 acyclovir 200 mg capsule 400 mg PO .5 times daily PRN 06/05/20 11/23/21 herpes #50 tab-caps betamethasone, augmented 0.05 % 1 applic topical BID #50 grams 06/18/20 11/23/21 topical ointment loratadine 10 mg tablet (Claritin) 10 mg PO DAILY PRN allergy 11/20/20 11/23/21 symptoms #30 tabs citalopram 20 mg tablet (Celexa) 20 mg PO DAILY #90 tabs 06/08/21 11/23/21 albuterol sulfate 90 mcg/actuation 2 puff inhalation Q6H PRN 10/10/21 11/23/21 aerosol inhaler shortness of breath or wheezing #18 grams fluticasone propionate 110 2 puff inhalation BID #12 grams 10/23/21 11/23/21 mcg/actuation HFA aerosol inhaler (Flovent HFA) amoxicillin 875 mg-potassium 1 tab PO TID #21 tabs 11/20/21 11/23/21 clavulanate 125 mg tablet buspirone 5 mg tablet 1 tab PO DAILY 11/23/21 11/23/21 ciprofloxacin HCl 500 mg tablet 500 mg PO BID #14 tabs 11/23/21 metronidazole 500 mg tablet 500 mg PO Q8H #21 tabs 11/23/21 Previous Rx's Medication Instructions Recorded acetaminophen 325 mg tablet 325 mg PO Q6H PRN PRN 12/24/16 (Tylenol) lidocaine HCl 3 % topical cream 1 applic topical BID PRN pain 07/17/19 #28.35 grams acyclovir 5 % topical ointment 1 applic topical Q6H PRN #30 grams 08/10/19 acyclovir 200 mg capsule 400 mg PO .5 times daily PRN 06/05/20 herpes #50 tab-caps betamethasone, augmented 0.05 % 1 applic topical BID #50 grams 06/18/20 topical ointment loratadine 10 mg tablet (Claritin) 10 mg PO DAILY PRN allergy 11/20/20 symptoms #30 tabs citalopram 20 mg tablet (Celexa) 20 mg PO DAILY #90 tabs 06/08/21 albuterol sulfate 90 mcg/actuation 2 puff inhalation Q6H PRN 10/10/21 aerosol inhaler shortness of breath or wheezing #18 grams fluticasone propionate 110 2 puff inhalation BID #12 grams 10/23/21 mcg/actuation HFA aerosol inhaler (Flovent HFA) amoxicillin 875 mg-potassium 1 tab PO TID #21 tabs 11/20/21 clavulanate 125 mg tablet ciprofloxacin HCl 500 mg tablet 500 mg PO BID #14 tabs 11/23/21 metronidazole 500 mg tablet 500 mg PO Q8H #21 tabs 11/23/21 Allergies Allergy/AdvReac Type Severity Reaction Status Date / Time bupropion HCl AdvReac Severe FELT CRAZY Verified 11/20/21 13:27 [From Wellbutrin] atorvastatin calcium AdvReac Intermediate Diarrhea Verified 11/20/21 13:27 [From Lipitor] codeine AdvReac Nausea Verified 11/20/21 13:27 lactose AdvReac Diarrhea/Cr Verified 11/20/21 13:27 amping propoxyphene AdvReac Nausea Verified 11/20/21 13:27 General Stated Complaint: Abd Prob ANNIE: 3 Review of Systems All systems reviewed & are unremarkable except as noted in HPI and below Constitutional Constitutional: Denies chills, Denies fever(s) and Denies weakness Cardiovascular Cardiovascular: Denies chest pain and Denies dyspnea Respiratory Respiratory: Denies cough and Denies dyspnea Gastrointestinal Gastrointestinal: Denies nausea and Denies vomiting Genitourinary Genitourinary: Denies dysuria Musculoskeletal Musculoskeletal: Denies joint swelling Integumentary/Breasts Skin/Breast: Denies rash Neurologic Neurologic: Denies weakness PFSH All Active Problems (Updated 11/23/21 @ 19:24 by Dilip Copeland MD) LLQ abdominal pain (Acute) Leg pain, right (Acute) Lichen sclerosus et atrophicus (Acute 08/10/12) Patient instructed to use clobetasol daily ?2 weeks and then twice weekly. Hypertension (Chronic) Mild persistent asthma without complication (Chronic 09/17/16) Medical History Anxiety 05/28/17 CLAUDE-7 SCORE=12 Degenerative tear of meniscus of left knee Depressive disorder DEPRESSION/ANXIETY Diverticula of colon 08/05/15; COLONOSCOPY; DR. BARAHONA Female genital prolapse (09/06/17) Herpes (06/26/14) Hyperlipidemia (07/20/13) Lactose intolerance Lumbar degenerative disc disease (07/21/13) Medial meniscus tear Pes anserinus bursitis of left knee Right knee pain Scoliosis Tendinitis of long head of biceps brachii of both shoulders Trigger finger, left middle finger Trigger finger, right middle finger Urinary, incontinence, stress female (05/11/11) cough incontinence Vaginal atrophy Surgical History Colonoscopy - [facility] [place] (~2004) Fracture, Closed Treatment LEFT FEMUR (1971) H/O bilateral salpingo-oophorectomy 02/22/98 H/O bladder repair surgery 02/22/98 S/P abdominal hysterectomy 02/22/98 Family History Mother Essential hypertension Father , age 94 Heart disease Hyperlipidemia Brother Essential hypertension Hyperlipidemia Maternal Grandfather Heart disease Stroke Paternal Grandfather Heart disease Maternal Grandmother Breast cancer Paternal Grandmother Personal history of malignant neoplasm STOMACH Social History Smoking/Tobacco Use Status: Former Tobacco Use Quit Date: 02/23/88 Tobacco: How many years used: 20 Second Hand Exposure: Yes Smoking risk assessment performed?: Yes Alcohol Intake: former Drug use: Never Substance use type: does not use Counseling given: Yes Counseling provided: none Caregiver/Support person: No Household members: family Housing: house Number of Children: 1 Communication Needs: None Pets and animals: Yes Pets and animals: cat(s) Sexually active: No Do you think of yourself as: straight/heterosexual Current gender identity: female What is your relationship status?: How often do you talk on the phone with friends or family?: twice per week How often do you get together with friends or relatives?: once per week How often do you attend congregation or buddhism services?: decline to answer Do you belong to any clubs or organized social groups?: yes Panel score (0-1 are the most socially isolated patients): 2 What type of physical activity do you participate in: other Details: yard work, gardening Duration: 30-45 minutes/day Frequency: 1-2 times per week Bree/Buddhist: Jain Special bree needs: No Seatbelt use: always Helmet use: Yes Drive intox or ride w/intox helper/driver: No Do you feel safe at home: Yes Do you feel safe in your relationship?: Yes History History 1 Para 1 Hx # Term Pregnancies 1 Multiple births Hx # Pregnancies Ectopic pregnancies AB induced Hx Number of Living Children 1 AB spontaneous Past Pregnancies Del. Date GA/Weeks # Preg Succ Route Wgt Sex Labor Lgth Anesthesia Location [facility] 01/21/1969 vaginal Exam Const General: no acute distress Orientation: alert HENMT Head: normal to inspection Ears: external ears normal General nose exam: external nose normal Mouth: moist mucous membranes Eyes General: appearance normal, both eyes and all related structures Neck Neck: normal visual inspection Resp Effort & Inspection: normal respiratory effort and able to speak in complete sentences Cardio Rate: regular rate GI Palpation: soft and tender Skin General skin exam: no rashes or lesions noted Neuro General: patient alert and patient oriented x3 Extrem General: normal to inspection Psych Mental Status: mental status grossly normal Course Vital Signs Vital signs: Vital Signs Temperature 37.3 C 11/23/21 15:48 Pulse 75 11/23/21 15:48 Respiratory Rate 20 11/23/21 15:48 Blood Pressure 131/96 H 11/23/21 15:48 Pulse Oximetry 98 11/23/21 15:48 Temperature 37.3 C 11/23/21 15:48 Pulse 75 11/23/21 15:48 Respiratory Rate 20 11/23/21 15:48 Blood Pressure 131/96 H 11/23/21 15:48 Blood Pressure Position Supine 11/23/21 15:48 Pulse Oximetry 98 11/23/21 15:48 Oxygen Delivery Method Room Air 11/23/21 15:48 Oxygen Flow Rate 0 11/23/21 15:48 Pain Level 10 11/23/21 15:48 Comment 11/23/21 15:48
[2021-11-23] MEDS: Ketorolac 15 MG/ML VIAL IVP (16:52)
[2021-11-23] MEDS: Normal Saline 1,000 ML 1000 ML IV (16:52)
[2021-11-23 17:10] LABS: Abs Immature Grans 0.03 10^3/uL (0.0-0.06); Absolute Basophil Count 0.06 10^3/uL (0.0-0.2); Absolute Eosinophil Count 0.56 10^3/uL (0.0-0.7); Absolute Lymphocyte Count 2.29 10^3/uL (1.2-3.4); Absolute Monocyte Count 0.75 10^3/uL (0.1-0.8); Absolute Neutrophil Count 4.68 10^3/uL (1.2-6.7); Basophils % 0.7; Eosinophils % 6.7; HCT 45.7 % (36.0-46.0); HGB 15.1 g/dL (11.2-15.7); Immature Grans % 0.4; Lymphocytes % 27.4; MCV 94 fL (80-95); MPV 10.2 fL (8.0-11.0); Neutrophils % 55.8; Platelet Count 260 10^3/uL (130-400); RBC 4.87 10^6/uL (3.93-5.22); RDW-SD 44.4 fL; WBC 8.37 10^3/uL (4.4-10.8)
[2021-11-23 17:26] LABS: ALT 14 U/L (14-59); AST 21 U/L (15-37); Alkaline Phosphatase 70 U/L (46-116); Anion Gap 9.5 mmol/L (3-11); BUN 16 mg/dL (7-18); Bilirubin, Total 0.4 mg/dL (0.2-1.0); CO2 26.5 mmol/L (21.0-32.0); CREATININE 0.8 mg/dL (0.55-1.02); Calcium 9.2 mg/dL (8.5-10.1); Chloride 98 mmol/L (98-107); Estimated GFR 77.75 (mL/min/1.73m2); Glucose 94 mg/dL (74-106); Lipase 89 U/L (73-393); Potassium 3.9 mmol/L (3.5-5.1); Sodium 134 mmol/L (136-145); Total Protein 8.1 g/dL (6.4-8.2)
[2021-11-23] MEDS: Omnipaque 350 MG/ML 100 ML BTL IJ (18:12)
[2021-11-23] MEDS: Normal Saline Flush 10 ML SYR IVP (18:12)
--- NOTE | 2021-11-23 18:54 | DI.VRAD_ITS ---
PROCEDURE INFORMATION: Exam: CT Abdomen And Pelvis With Contrast Exam date and time: 11/23/2021 6:06 PM Age: 71 years old Clinical indication: Other: Left lower abdomen pain TECHNIQUE: Imaging protocol: Computed tomography of the abdomen and pelvis with contrast. Contrast material: OMNIPAQUE 350; Contrast volume: 100 ml; Contrast route: INTRAVENOUS (IV); COMPARISON: CT ABDOMEN PELVIS W 06/07/2018 11:28 FINDINGS: Lungs: Visualized lung bases are clear. Liver: Stable small cyst in the liver. No mass or ductal dilatation. Gallbladder and bile ducts: Normal. No calcified stones. No ductal dilation. Pancreas: Normal. No mass or ductal dilation. Spleen: Normal. No splenomegaly. Adrenal glands: Normal. No mass. Kidneys and ureters: Normal. No hydronephrosis, calculus, cyst or mass. Stomach and bowel: Stomach and small bowel are normal. There are several calcified densities within the right colon. Colon shows no diverticular disease or wall thickening. Appendix: No evidence of appendicitis. Intraperitoneal space: Unremarkable. No free air. No significant fluid collection. Vasculature: Aorta is atherosclerotic but nonaneurysmal. Lymph nodes: No enlarged retroperitoneal or mesenteric lymph nodes. Urinary bladder: No mass or wall thickening. Reproductive: Uterus is absent. No adnexal cyst or mass. Bones/joints: Danced degenerative change in the lumbar spine with degenerative dextroscoliosis.. Soft tissues: Unremarkable. IMPRESSION: No acute abnomality in the abdomen or pelvis. Dictated and Authenticated by: Mehrdad Lebron MD. Ordering:KWAN Cherry MD
== END 2021-11-23 19:40 | disposition home or self-care (01) ==
PROVIDERS: Emergency Provider Emergency Medicine; PCP Family Medicine
DX: R10.32 Left lower quadrant pain (principal); R19.7 Diarrhea, unspecified; Z87.19 Personal history of other diseases of the digestive system; Z90.710 Acquired absence of both cervix and uterus; Z90.722 Acquired absence of ovaries, bilateral; Z87.891 Personal history of nicotine dependence
CPT/HCPCS: 36415; 80053; 83690; 96361; 96374; 99285; 74177; 85025; 99284; J1885; J3490

== ENCOUNTER 2022-03-09 01:53 | Outpatient (CLI) | payer MEDICARE, MEDICAID, SELFPAY ==
--- NOTE | 2022-03-09 07:30 | DI.MAMMO_ITS ---
Exam(s) MAMMO SCREENING EXAM: MAMMO SCREENING CLINICAL HISTORY: screening,z12.39 TECHNIQUE: Bilateral full field digital CC and MLO mammographic images were obtained with 3D tomosyn thesis and utilizing computer aided detection (CAD). COMPARISON: Available for comparison. FINDINGS: Masses/Architectural Distortion: None seen. Microcalcifications: No suspicious pleomorphic-type are seen. Skin Thickening/Nipple Retraction: None. IMPRESSION: 1. No significant interval change with no specific features of malignancy noted. 2. Unless there is more urgent need, screening mammography is recommended, as per [place] [employer] guidelines. BI-RADS Category 1 - Negative Breast Density - Category C - Heterogeneously dense Breast density category C or D implies that the patient has dense breast tissue. Dense breast tissue is very common and is not abnormal but dense breast tissue can make it harder to find cancer on a ma mmogram. Also, dense breast tissue may increase their breast cancer risk. This information about the result of the mammogram report was provided to the patient to raise their awareness. Use this report when you speak with the patient about their risks for breast cancer, which includes their family hist ory. At that time, you may recommend for more screening tests (Ultrasound or MRI) as they might be us eful based on their risk. A negative radiographic report should not delay biopsy if a dominant or clinically suspicious mass is present. Up to ten percent of cancers are not identified on mammography. A negative report may reinforce clinical impression. Adenosis and dense breasts may obscure an underlying neoplasm. False positive reports average 6 to 10%. Patient will receive a letter notifying them of these results.
== END 2022-03-09 02:13 ==
LOC: DI 01:53
PROVIDERS: PCP Family Medicine; Visit Provider Family Medicine
DX: Z12.31 Encounter for screening mammogram for malignant neoplasm of breast (principal); R92.2 Inconclusive mammogram
CPT/HCPCS: 77063; 77067

== ENCOUNTER 2022-04-03 00:02 | Outpatient (CLI) | payer MEDICARE, MEDICAID, SELFPAY ==
--- NOTE | 2022-04-03 07:00 | DI.DEXA_ITS ---
Exam(s) XR DEXA BONE DENSITY W/WO GIULIANA EXAM: XR DEXA BONE DENSITY W/WO GIULIANA CLINICAL HISTORY: osteoporosis,m81.0 TECHNIQUE: COMPARISON: Comparison examination is 04/30/2009. FINDINGS: Lateral Spine Image: Unremarkable. No compression deformities identified. Left hip: Total T-Score: -1.0. This compares to 0.5 on the prior examination. Total Z-Score: 0.8 T- and Z-scores: Within normal limits. Lumbar Spine: Total T-Score: -0.5. This compares to -0.4 on the prior examination. Total Z-Score: 1.8 T- and Z-scores: Within normal limits. IMPRESSION: No evidence of osteoporosis.
== END 2022-04-03 00:22 ==
LOC: DI 00:02
PROVIDERS: PCP Family Medicine; Visit Provider Family Medicine
DX: M81.0 Age-related osteoporosis without current pathological fracture (principal); Z13.820 Encounter for screening for osteoporosis
CPT/HCPCS: 77080

== ENCOUNTER 2022-05-01 14:55 | Outpatient (CLI) | payer MEDICARE, MEDICAID, SELFPAY ==
--- NOTE | 2022-05-01 14:00 | DI.RAD_ITS ---
Exam(s) XR CERVICAL SPINE COMP 4-5V EXAM: XR CERVICAL SPINE COMP 4-5V CLINICAL HISTORY: neck pain, hyperextension,m54.2. TECHNIQUE: 2D digital imaging was performed. COMPARISON: CR XR CERVICAL SPINE COMP 4-5V from 08/02/2020 FINDINGS: BONES: No fracture or destructive lesion. Vertebral bodies are unremarkable. DISKS: Narrowing of the intervertebral discs throughout. Mild bilateral neural foraminal narrowing. ALIGNMENT: Cervical spinal alignment is within normal limits. The odontoid and atlantoaxial articulat ions are normal. SOFT TISSUE: Normal. The lung apices are clear. IMPRESSION: Degenerative changes. No acute abnormality. DATA REPOSITORY: RADIATION DOSE DELIVERED:
== END 2022-05-01 15:15 ==
LOC: DI 14:56
PROVIDERS: PCP Family Medicine; Visit Provider Physician Assistant
DX: M47.812 Spondylosis without myelopathy or radiculopathy, cervical region (principal)
CPT/HCPCS: 72050

== ENCOUNTER 2022-06-08 12:32 | Outpatient (REF) | payer MEDICARE, MEDICAID, SELFPAY ==
[2022-06-08 21:38] LABS: HCT 44.3 % (36.0-46.0); HGB 14.7 g/dL (11.2-15.7); MCH 31.1 pg (27.0-33.0); MCHC 33.2 % (32.0-36.0); MCV 94 fL (80-95); MPV 11.5 fL (8.0-11.0); Platelet Count 237 10^3/uL (130-400); RBC 4.73 10^6/uL (3.93-5.22); RDW 13.4 % (11.7-14.6); RDW-SD 46.5 fL
[2022-06-08 21:48] LABS: Anion Gap 9.4 mmol/L (3-11); BUN 17 mg/dL (7-18); CO2 25.6 mmol/L (21.0-32.0); CREATININE 0.8 mg/dL (0.55-1.02); Calcium 9.1 mg/dL (8.5-10.1); Chloride 103 mmol/L (98-107); Estimated GFR 77.27 (mL/min/1.73m2); Glucose 146 mg/dL (74-106); Potassium 4.3 mmol/L (3.5-5.1); Sodium 138 mmol/L (136-145)
== END 2022-06-08 12:33 | disposition home or self-care (01) ==
LOC: LBN 12:32
PROVIDERS: PCP Family Medicine; Visit Provider Nurse Practitioner Family
DX: R53.83 Other fatigue (principal); R51.9 Headache, unspecified
CPT/HCPCS: 80048; 85027

== ENCOUNTER → 2022-10-12 15:29 | Outpatient (CLI) | payer MEDICARE, MEDICAID, SELFPAY ==
--- NOTE | 2022-10-12 14:35 | DI.RAD_ITS ---
Exam(s) XR FOOT LT COMPLETE XR FOOT RT COMPLETE EXAM: XR FOOT bilateral COMPLETE CLINICAL HISTORY: foot pain, BUNION RT FOOT, ACQUIRED HAMMER TOE, M79.673, M21.611, M20.40. TECHNIQUE: 2D digital imaging was performed of the right foot. Six images were obtained. AP, obliq ue and lateral views were obtained. COMPARISON: None. FINDINGS: BONES: No acute fracture is present. No bony destructive lesion is seen. There are small plantar calc aneal spurs bilaterally. JOINTS: There are moderate bilateral hallux valgus deformities present. There is overlap of the righ t 3rd and 4th toes. There are mild degenerative changes in the feet bilaterally. The findings are m ost marked at the 1st MTP joints bilaterally. SOFT TISSUE: Normal. IMPRESSION: Hallux valgus deformities and degenerative changes bilaterally. DATA REPOSITORY: RADIATION DOSE DELIVERED:
== END ==
PROVIDERS: PCP Family Medicine; Visit Provider Podiatrist
DX: M20.11 Hallux valgus (acquired), right foot; M20.12 Hallux valgus (acquired), left foot; M19.071 Primary osteoarthritis, right ankle and foot; M19.072 Primary osteoarthritis, left ankle and foot
CPT/HCPCS: 73630

== ENCOUNTER 2022-11-28 11:20 | Emergency (ER) | payer MEDICARE, MEDICAID, SELFPAY ==
[2022-11-28] VITALS (16 sets, daily range): BP systolic 154–209; BP diastolic 62–93; PULSE 59–70; RESP 16–18; TEMP 36.9; O2SAT 92–97
--- NOTE | 2022-11-28 11:30 | DI.CT_ITS ---
Exam(s) CT HEAD - STROKE PROTOCOL EXAM: CT HEAD - STROKE PROTOCOL CLINICAL HISTORY: right facial paralysis. TECHNIQUE: Imaging Protocol: Axial computed tomography images with coronal and sagittal reformatted images were created and reviewed COMPARISON: CT CT HEAD WO from 08/02/2020 FINDINGS: Ventricles and Extra axial spaces: Normal in size and morphology for the patient's age. Hemorrhage: None. Cerebral parenchyma: Within normal limits. Incidental note is made of a small lipoma along the poste rior falx. Midline shift: None. Brainstem/Cerebellum: Normal. Calvarium: Normal. Visualized Paranasal sinuses/Mastoids: There is mucosal thickening in the ethmoid air cells bilateral ly in the maxillary sinuses, left greater than right. The remaining visualized paranasal sinuses and mastoid air cells are clear. There is mucous retention cyst or polyp in the left maxillary sinus. Soft Tissues: Unremarkable. IMPRESSION: No acute intracranial process. RADIATION DOSE DELIVERED: 639.05mGy.cm Total DLP DATA REPOSITORY: All CT scans at this facility are submitted to the National Radiology Data Registry (NRDR) Dose Index Registry (DIR) with the [employer] (A[employer]). RADIATION OPTIMIZATION: All CT scans at this facility use at least one of these dose optimization te chniques: automated exposure control; mA and/or kV adjustment per patient size (includes targeted exa ms where dose is matched to clinical indication); or iterative reconstruction.
[2022-11-28 11:49] LABS: Abs Immature Grans 0.03 10^3/uL (0.0-0.06); Absolute Basophil Count 0.07 10^3/uL (0.0-0.2); Absolute Eosinophil Count 0.47 10^3/uL (0.0-0.7); Absolute Lymphocyte Count 2.14 10^3/uL (1.2-3.4); Absolute Monocyte Count 0.61 10^3/uL (0.1-0.8); Absolute Neutrophil Count 4.73 10^3/uL (1.2-6.7); Basophils % 0.9; Eosinophils % 5.8; HCT 43.3 % (36.0-46.0); HGB 14.5 g/dL (11.2-15.7); Immature Grans % 0.4; Lymphocytes % 26.6; MCH 31.4 pg (27.0-33.0); MCHC 33.5 % (32.0-36.0); MCV 94 fL (80-95); MPV 10.6 fL (8.0-11.0); Monocytes % 7.6; Neutrophils % 58.7; Platelet Count 250 10^3/uL (130-400); RBC 4.62 10^6/uL (3.93-5.22); RDW 13.4 % (11.7-14.6); RDW-SD 46.5 fL; WBC 8.05 10^3/uL (4.4-10.8)
[2022-11-28 12:05] LABS: ALT 12 U/L (14-59); AST 18 U/L (15-37); Albumin 3.3 g/dL (3.4-5.0); Alkaline Phosphatase 75 U/L (46-116); BUN 18 mg/dL (7-18); Bilirubin, Total 0.4 mg/dL (0.2-1.0); CREATININE 0.8 mg/dL (0.55-1.02); Calcium 8.9 mg/dL (8.5-10.1); Chloride 101 mmol/L (98-107); Estimated GFR 77.27 (mL/min/1.73m2); Glucose 139 mg/dL (74-106); Potassium 3.8 mmol/L (3.5-5.1); Sodium 136 mmol/L (136-145); Total Protein 7.2 g/dL (6.4-8.2)
--- NOTE | 2022-11-28 12:08 | DI.VRAD_ITS ---
PROCEDURE INFORMATION: Exam: CT Head Without Contrast Exam date and time: 11/28/2022 11:53 AM Age: 72 years old Clinical indication: Stroke-like symptoms; Other: Right facial paralysis TECHNIQUE: Imaging protocol: Computed tomography of the head without contrast. Radiation optimization: All CT scans at this facility use at least one of these dose optimization techniques: automated exposure control; mA and/or kV adjustment per patient size (includes targeted exams where dose is matched to clinical indication); or iterative reconstruction. Other technique: STROKE PROTOCOL was implemented. COMPARISON: CT HEAD WO 08/02/2020 2:05 PM FINDINGS: Brain: The stinson-white matter junction is within normal limits. The inferior posterior falx again has a small lipoma measuring 1.1 cm in length and up to 0.4 cm in diameter. No new masses or midline shift. Cerebral ventricles: No ventriculomegaly. Paranasal sinuses: Redemonstrated is a mucous retention cyst in the posterolateral aspect of the left maxillary sinus. There is also mid ethmoid sinus opacification similar to the prior exam. The remainder of the paranasal sinuses are unremarkable. Mastoid air cells: Visualized mastoid air cells are well aerated. Bones/joints: Unremarkable. No acute fracture. Soft tissues: Unremarkable. IMPRESSION: 1. No acute intracranial findings. 2. Unchanged left posterior parafalcine lipoma. 3. Unchanged left maxillary and ethmoid sinus disease. ASSESSMENT: ASPECTS ([place] Stroke Program Early CT Score) is 10. Dictated and Authenticated by: Rigoberto Enriquez MD. Ordering:KATRIN Zamora MD
--- NOTE | 2022-11-28 13:15 | DI.CT_ITS ---
Exam(s) CT BRAIN NECK CTA EXAM: CT BRAIN NECK CTA CLINICAL HISTORY: Right-sided facial paralysis. TECHNIQUE: Imaging Protocol: Axial CT angiography was performed with multi-slice acquisition and mu lti-planar and/or 3D reconstructions. CONTRAST MATERIAL: Intravenous: Omnipaque 350 contrast volume:85 mL COMPARISON: CT CT ABDOMEN PELVIS W from 11/23/[address] HEAD - STROKE PROTOCOL from 11/28/2022 FINDINGS: CT Head w: Ventricles and Extra axial spaces: Normal in size and morphology for the patient's age. Hemorrhage: None. Cerebral parenchyma: There is a normal stinson-white matter differentiation. Stable parafalcine lipoma. Midline shift: None. Brainstem/Cerebellum: Normal. Calvarium: Normal. Visualized Paranasal sinuses/Mastoids: There is again seen a mucous retention cyst in the left maxill blayne sinus. There is mild mucosal thickening again seen in the ethmoid air cells. The remaining visu alized paranasal sinuses and mastoid air cells are clear. Soft Tissues: Unremarkable. Enhancement: Unremarkable. CTA Neck W: Common Carotid: Right: No dissection, occlusion or significant stenosis. Left: No dissection, occlusion or significant stenosis. External Carotid: Right: No occlusion or significant stenosis. Left: No occlusion or significant stenosis. Internal Carotid: Right: No dissection, occlusion or significant stenosis. Atherosclerosis at the origin. Left: No dissection, occlusion or significant stenosis. Atherosclerosis at the origin. Vertebral Artery: Right: No dissection, occlusion or significant stenosis. Mild atherosclerosis at the origin. Left: No dissection, occlusion or significant stenosis. Lung Apices: Normal. Bones: Within normal limits for the patient's age. Soft Tissues: Normal. Thyroid gland: There is diffuse enlargement of the thyroid gland without definite mass seen. This is limited by artifact from the IV bolus. Follow-up as clinically appropriate. This may include a non emergent thyroid ultrasound. CTA Brain W: Internal Carotid Arteries: Mild atherosclerosis. No aneurysm, occlusion or significant stenosis. Anterior Cerebral Arteries: Right: No aneurysm, occlusion or significant stenosis. Left: No aneurysm, occlusion or significant stenosis. Middle Cerebral Arteries: Right: No aneurysm, occlusion or significant stenosis. Left: No aneurysm, occlusion or significant stenosis. Posterior Cerebral Arteries: Right: No aneurysm, occlusion or significant stenosis. Left: No aneurysm, occlusion or significant stenosis. Vertebral Arteries: Right: No aneurysm, occlusion or significant stenosis. The right RN BABY arises from the right PCOM whic h is a normal variant. Left: No aneurysm, occlusion or significant stenosis. Basilar Artery: No aneurysm, occlusion or significant stenosis. IMPRESSION: 1. No large vessel occlusion or significant stenosis on the CT angiography of the head. 2. No acute intracranial process. 3. No occlusion or significant stenosis on the CT angiography of the neck. Unexpected findings RADIATION DOSE DELIVERED: 1,052.84mGy.cm Total DLP DATA REPOSITORY: All CT scans at this facility are submitted to the National Radiology Data Registry (NRDR) Dose Index Registry (DIR) with the [employer] (ACR). RADIATION OPTIMIZATION: All CT scans at this facility use at least one of these dose optimization te chniques: automated exposure control; mA and/or kV adjustment per patient size (includes targeted exa ms where dose is matched to clinical indication); or iterative reconstruction.
[2022-11-28] MEDS: Normal Saline - Diluent 50 ML VIAL IJ (13:26)
--- NOTE | 2022-11-28 14:24 | DI.VRAD_ITS ---
PROCEDURE INFORMATION: Exam: CTA Head With Contrast, Arteriography Exam date and time: 11/28/2022 1:33 PM Age: 72 years old Clinical indication: Other: Right sided facial paralysis TECHNIQUE: Imaging protocol: Computed tomographic angiography of the head with contrast. Exam focused on the arteries. 3D rendering (Not supervised by radiologist): MIP and/or 3D reconstructed images were created by the technologist. Contrast material: OMNI 350; Contrast volume: 85 ml; Contrast route: INTRAVENOUS (IV); COMPARISON: CT HEAD - STROKE PROTOCOL 11/28/2022 11:53 AM FINDINGS: ANTERIOR CIRCULATION: Right internal carotid artery: Intracranial segment is patent with no significant stenosis. No aneurysm. Right middle cerebral artery: No occlusion or significant stenosis. No aneurysm. Right anterior cerebral artery: No occlusion or significant stenosis. No aneurysm. Left internal carotid artery: Intracranial segment is patent with no significant stenosis. No aneurysm. Left middle cerebral artery: No occlusion or significant stenosis. No aneurysm. Left anterior cerebral artery: No occlusion or significant stenosis. No aneurysm. POSTERIOR CIRCULATION: Right vertebral artery: No occlusion or significant stenosis. No aneurysm. Left vertebral artery: No occlusion or significant stenosis. No aneurysm. Basilar artery: No occlusion or significant stenosis. No aneurysm. Right posterior cerebral artery: origin of the right posterior cerebral artery. No occlusion aneurysm, or significant stenosis. Left posterior cerebral artery: No occlusion or significant stenosis. No aneurysm. Brain: No definite mass, mass effect, or midline shift. 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 Cerebral ventricles: No ventriculomegaly. Bones/joints: Unremarkable. No acute fracture. Soft tissues: Unremarkable. IMPRESSION: No stenosis or occlusion. PROCEDURE INFORMATION: Exam: CTA Neck With Contrast Exam date and time: 11/28/2022 1:33 PM Age: 72 years old Clinical indication: Other: Right sided facial paralysis TECHNIQUE: Imaging protocol: Computed tomographic angiography of the neck with contrast. 3D rendering (Not supervised by radiologist): MIP and/or 3D reconstructed images were created by the technologist. Radiation optimization: All CT scans at this facility use at least one of these dose optimization techniques: automated exposure control; mA and/or kV adjustment per patient size (includes targeted exams where dose is matched to clinical indication); or iterative reconstruction. Contrast material: OMNI 350; Contrast volume: 85 ml; Contrast route: INTRAVENOUS (IV); COMPARISON: CT HEAD - STROKE PROTOCOL 11/28/2022 11:53 AM FINDINGS: Right common carotid artery: No stenosis. No dissection or occlusion. Right internal carotid artery: No stenosis of the extracranial segment. No dissection or occlusion. Right external carotid artery: No occlusion or stenosis of the origin. Left common carotid artery: No stenosis. No dissection or occlusion. Left internal carotid artery: No stenosis of the extracranial segment. No dissection or occlusion. Left external carotid artery: No occlusion or stenosis of the origin. Right vertebral artery: No stenosis. No dissection or occlusion. Left vertebral artery: No stenosis. No dissection or occlusion. Thyroid: The thyroid gland is enlarged. The contrast bolus and osseous structures makes it difficult to assess the gland. Soft tissues: Normal. No significant soft tissue swelling. Bones/joints: See no fracture or malalignment. The spine demonstrates mild degenerative changes at multiple levels. IMPRESSION: 1. No stenosis or occlusion. 2. Probable thyroid goiter. Suggest outpatient ultrasound. REFERENCES: NASCET CRITERIA. The degree of stenosis in the cervical segment of the internal carotid artery is based on NASCET criteria. Normal is no stenosis. Mild is less than 50% stenosis. Moderate is 50-69% stenosis. Severe is 70% to 99% stenosis. Total occlusion is no detectable patent lumen. Dictated and Authenticated by: Rigoberto Enriquez MD. Ordering:KATRIN Zamora MD
[2022-11-28] MEDS: amLODIPine 2.5 MG TAB PO (15:07)
--- NOTE | 2022-11-28 15:48 | ED.GENADUL_ITS ---
Discharge Plan Disposition Patient Disposition: Home Discharge Details Clinical Impression: Right-sided Walker's palsy Primary Care Provider: Lizabeth Mcmahan ED Provider: Noah Chilel Home Meds and New Rx's Prescriptions: New prednisone 20 mg tablet 60 mg PO DAILY 7 Days Qty: 21 0RF valacyclovir 1 gram tablet 1,000 mg PO TID 7 Days Qty: 21 0RF aspirin 81 mg tablet,chewable 81 mg PO DAILY Qty: 14 0RF amlodipine 2.5 mg tablet 2.5 mg PO DAILY Qty: 14 0RF Continued fluticasone propionate [Flovent HFA] 110 mcg/actuation HFA aerosol inhaler 2 puff inhalation BID Qty: 12 4RF betamethasone, augmented 0.05 % ointment 1 applic topical BID Qty: 50 4RF Rx Instructions: apply tiny amount to vulva twice daily vitamin E (dl, acetate) 45 mg (100 unit) capsule 45 mg PO DAILY vitamin B complex Tablet 1 tab PO DAILY cholecalciferol (vitamin D3) 3,000 unit tablet 1,000 unit PO DAILY docusate sodium [Colace] 100 mg capsule 100 mg PO BID PRN multivitamin 1 EACH tablet 1 tab PO DAILY Acidophilus-Pectin 1 EACH capsule 1 cap PO DAILY citalopram [Celexa] 20 mg tablet 20 mg PO DAILY Qty: 90 5RF albuterol sulfate 90 mcg/actuation HFA aerosol inhaler 2 puff IH Q6H PRN (Reason: shortness of breath or wheezing) Qty: 18 4RF loratadine [Claritin] 10 mg tablet 10 mg PO DAILY PRN (Reason: allergy symptoms) Qty: 30 3RF Rx Instructions: Take one tab daily as needed for allergy symptoms acetaminophen [Tylenol] 325 MG tablet 325 mg PO Q6H PRN [id number] Discharge Instructions Instructions: Walker Palsy (ED) Additional Instructions: Please continue to monitor your symptoms and if you have any new or significant worsening of your condition return immediately to the emergency department for reassessment. You have been started on steroids and antivirals for suspected Walker's palsy. Please take as prescribed. In the case that this is a mini stroke we are putting you on baby aspirin 81 mg daily and take in less discontinued by your primary care provider. We have started you on a new hypertensive medication called amlodipine please take this daily and discuss further medication need for hypertension with your primary care provider. Referrals: Lizabeth Mcmahan MD, [place] [Primary Care Provider] - 3 days Discharge Data Discharge Date/Time-TO BE ENTERED AT DEPARTURE: 11/28/22 16:20 Medical Decision Making Patient presenting to the emergency department for chief complaint of headache and slight facial droop. Patient reports that headache started yesterday and has a similar pattern to her ocular migraines but then this morning approximately 3-1/2 to 4 hours prior to arrival she started noticing some sensation in her right upper lip cheek and forehead along with slight droop to the corner of her mouth on the right side. Patient denies any peripheral symptoms, denies fever chills, denies recent tick bites or rashes, did not denies chest pain shortness of breath or other focal neurological symptoms. Patient has past medical history of anxiety, high cholesterol, hypertension. Physical exam does show slight droop of the right upper lip that is extremely subtle. While patient states subjective paresthesia upon palpation of the facial nerve she denies any difference 1 side to the other. No other focal neurological findings are noted. Differential diagnosis to include CVA, early Walker's palsy, or early shingles. Given this we will perform CT imaging of the head and labs. Review of initial stroke imaging shows no acute signs of hemorrhagic stroke. Given very subtle symptoms I do not feel that patient is a candidate for tPA or thrombolytics and discussed this with patient which is also in agreement of plan to hold off. Reviewed patient's labs and CBC is unremarkable, CMP only shows slightly elevated glucose at 139 otherwise nondiagnostic labs. Will order patient CTA of brain and neck and will give patient acetaminophen pending results Pending results patient remained hypertensive. Discussed this with patient and she stated she was previously on a diuretic that she did not do well on and has been off hypertensive medication since. Did discuss this with patient and she is agreeable to attempting further medication so amlodipine was ordered at 2.5 mg Reviewed CTA imaging that showed no stenosis or occlusion but possible thyroid goiter that was an incidental finding and recommended outpatient ultrasound. Reassessed patient and patient states improvement of her headache and actually having some improvement of facial symptoms. I do feel this is difficult to fully determine if this is more TIA versus early Walker's palsy which is honestly what I feel more suspicious of. Given resolving symptoms except for slight facial droop will discharge with recommendation to follow-up with primary care provider preferably early next week and will start patient on antivirals and steroids in case this is early Walker's palsy given that it is only been going on hours. Patient has no ocular symptoms so did not recommend eyedrops but did inform patient to follow-up with eye care provider if she develops any of these. In case of TIA will place patient on daily baby aspirin pending follow-up. After discussion of diagnosis and plan of care patient has no further needs, questions, or concerns and states clear understanding to return to the emergency department for any worsening symptoms. This documentation was generated using [employer] system, please disregard any oddities of phrase or misspellings. Imaging Data Radiologic Study #2: Imaging: CT Scan Radiologist's impression: Exam(s) PROCEDURE INFORMATION: Exam: CTA Head With Contrast, Arteriography Exam date and time: 11/28/2022 1:33 PM Age: 72 years old Clinical indication: Other: Right sided facial paralysis TECHNIQUE: Imaging protocol: Computed tomographic angiography of the head with contrast. Exam focused on the arteries. 3D rendering (Not supervised by radiologist): MIP and/or 3D reconstructed images were created by the technologist. Contrast material: OMNI 350; Contrast volume: 85 ml; Contrast route: INTRAVENOUS (IV); COMPARISON: CT HEAD - STROKE PROTOCOL 11/28/2022 11:53 AM FINDINGS: ANTERIOR CIRCULATION: Right internal carotid artery: Intracranial segment is patent with no significant stenosis. No aneurysm. Right middle cerebral artery: No occlusion or significant stenosis. No aneurysm. Right anterior cerebral artery: No occlusion or significant stenosis. No aneurysm. Left internal carotid artery: Intracranial segment is patent with no significant stenosis. No aneurysm. Left middle cerebral artery: No occlusion or significant stenosis. No aneurysm. Left anterior cerebral artery: No occlusion or significant stenosis. No aneurysm. POSTERIOR CIRCULATION: Right vertebral artery: No occlusion or significant stenosis. No aneurysm. Left vertebral artery: No occlusion or significant stenosis. No aneurysm. Basilar artery: No occlusion or significant stenosis. No aneurysm. Right posterior cerebral artery: origin of the right posterior cerebral artery. No occlusion aneurysm, or significant stenosis. Left posterior cerebral artery: No occlusion or significant stenosis. No aneurysm. Brain: No definite mass, mass effect, or midline shift. 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 Cerebral ventricles: No ventriculomegaly. Bones/joints: Unremarkable. No acute fracture. Soft tissues: Unremarkable. IMPRESSION: No stenosis or occlusion. PROCEDURE INFORMATION: Exam: CTA Neck With Contrast Exam date and time: 11/28/2022 1:33 PM Age: 72 years old Clinical indication: Other: Right sided facial paralysis TECHNIQUE: Imaging protocol: Computed tomographic angiography of the neck with contrast. 3D rendering (Not supervised by radiologist): MIP and/or 3D reconstructed images were created by the technologist. Radiation optimization: All CT scans at this facility use at least one of these dose optimization techniques: automated exposure control; mA and/or kV adjustment per patient size (includes targeted exams where dose is matched to clinical indication); or iterative reconstruction. Contrast material: OMNI 350; Contrast volume: 85 ml; Contrast route: INTRAVENOUS (IV); COMPARISON: CT HEAD - STROKE PROTOCOL 11/28/2022 11:53 AM FINDINGS: Right common carotid artery: No stenosis. No dissection or occlusion. Right internal carotid artery: No stenosis of the extracranial segment. No dissection or occlusion. Right external carotid artery: No occlusion or stenosis of the origin. Left common carotid artery: No stenosis. No dissection or occlusion. Left internal carotid artery: No stenosis of the extracranial segment. No dissection or occlusion. Left external carotid artery: No occlusion or stenosis of the origin. Right vertebral artery: No stenosis. No dissection or occlusion. Left vertebral artery: No stenosis. No dissection or occlusion. Thyroid: The thyroid gland is enlarged. The contrast bolus and osseous structures makes it difficult to assess the gland. Soft tissues: Normal. No significant soft tissue swelling. Bones/joints: See no fracture or malalignment. The spine demonstrates mild degenerative changes at multiple levels. IMPRESSION: 1. No stenosis or occlusion. 2. Probable thyroid goiter. Suggest outpatient ultrasound. REFERENCES: NASCET CRITERIA. The degree of stenosis in the cervical segment of the internal carotid artery is based on NASCET criteria. Normal is no stenosis. Mild is less than 50% stenosis. Moderate is 50-69% stenosis. Severe is 70% to 99% stenosis. Total occlusion is no detectable patent lumen. Lab Data Lab results reviewed: Yes I reviewed the patient's lab results. HPI General Mode of arrival: ambulatory . Date/Time Provider Initiated Documentation: 11/28/22 11:24 . Limitations to Documentation: no limitations . Information obtained by: patient and RN notes reviewed . History of Present Illness 72 year old F presents to the emergency department with the chief complaint of Headache, facial numbness and slight droop, described as moderate, Quality is described as aching, and is localized to the head and face. Patient started experiencing this day(s) (1) and it has been constant. No relieving factors improve symptom(s), No exacerbating factors reported . Patient notes no other symptoms.. Patient did receive the following treatments prior to arrival, none Related Data Home Medications Medication Instructions Recorded Confirmed Lactobacillus acidophilus-pectin 1 cap PO DAILY 05/26/12 11/28/22 capsule (Acidophilus-Pectin capsule) multivitamin 1 tab PO DAILY 05/26/12 11/28/22 acetaminophen 325 mg tablet 325 mg PO Q6H PRN PRN 12/24/16 11/28/22 (Tylenol) cholecalciferol (vitamin D3) 75 1,000 unit PO DAILY 02/10/18 11/28/22 mcg (3,000 unit) tablet docusate sodium 100 mg capsule 100 mg PO BID PRN 05/16/19 11/28/22 (Colace) fluticasone propionate 110 2 puff inhalation BID #12 grams 10/23/21 11/28/22 mcg/actuation HFA aerosol inhaler (Flovent HFA) betamethasone, augmented 0.05 % 1 applic topical BID #50 grams 06/08/22 11/28/22 topical ointment citalopram 20 mg tablet (Celexa) 20 mg PO DAILY #90 tabs 06/15/22 11/28/22 albuterol sulfate 90 mcg/actuation 2 puff inhalation Q6H PRN 09/09/22 11/28/22 aerosol inhaler shortness of breath or wheezing #18 grams loratadine 10 mg tablet (Claritin) 10 mg PO DAILY PRN allergy 10/15/22 11/28/22 symptoms #30 tabs vitamin B complex 1 tab PO DAILY 11/25/22 11/28/22 vitamin E (dl, acetate) 45 mg (100 45 mg PO DAILY 11/25/22 11/28/22 unit) capsule amlodipine 2.5 mg tablet 2.5 mg PO DAILY #14 tabs 11/28/22 aspirin 81 mg chewable tablet 81 mg PO DAILY #14 tabs 11/28/22 prednisone 20 mg tablet 60 mg PO DAILY 1 week #21 tabs 11/28/22 valacyclovir 1 gram tablet 1,000 mg PO TID 7 days #21 tabs 11/28/22 Previous Rx's Medication Instructions Recorded acetaminophen 325 mg tablet 325 mg PO Q6H PRN PRN 12/24/16 (Tylenol) fluticasone propionate 110 2 puff inhalation BID #12 grams 10/23/21 mcg/actuation HFA aerosol inhaler (Flovent HFA) betamethasone, augmented 0.05 % 1 applic topical BID #50 grams 06/08/22 topical ointment citalopram 20 mg tablet (Celexa) 20 mg PO DAILY #90 tabs 06/15/22 albuterol sulfate 90 mcg/actuation 2 puff inhalation Q6H PRN 09/09/22 aerosol inhaler shortness of breath or wheezing #18 grams loratadine 10 mg tablet (Claritin) 10 mg PO DAILY PRN allergy 10/15/22 symptoms #30 tabs amlodipine 2.5 mg tablet 2.5 mg PO DAILY #14 tabs 11/28/22 aspirin 81 mg chewable tablet 81 mg PO DAILY #14 tabs 11/28/22 prednisone 20 mg tablet 60 mg PO DAILY 1 week #21 tabs 11/28/22 valacyclovir 1 gram tablet 1,000 mg PO TID 7 days #21 tabs 11/28/22 Allergies Allergy/AdvReac Type Severity Reaction Status Date / Time bupropion HCl AdvReac Severe FELT CRAZY Verified 11/28/22 11:20 [From Wellbutrin] atorvastatin calcium AdvReac Intermediate Diarrhea Verified 11/28/22 11:20 [From Lipitor] codeine AdvReac Nausea Verified 11/28/22 11:20 lactose AdvReac Diarrhea/Cr Verified 11/28/22 11:20 amping propoxyphene AdvReac Nausea Verified 11/28/22 11:20 General Stated Complaint: Headache ANNIE: 3 Review of Systems Constitutional Constitutional: Denies body ache(s), Denies chills, Denies fever(s) and Reports headache(s) Eyes Eyes: Denies change in vision ENT Ears, Nose, Mouth, and Throat: Denies dizziness and Reports headache(s) Cardiovascular Cardiovascular: Denies chest pain and Denies syncope Gastrointestinal Gastrointestinal: Denies nausea and Denies vomiting Musculoskeletal Musculoskeletal: Reports numbness (Right upper lip) Neurologic Neurologic: Reports as per HPI, Denies dizziness, Denies syncope, Reports headache(s), Reports numbness (Right upper lip) and Denies sensory deficit PFSH All Active Problems (Updated 11/28/22 @ 16:04 by Noah Chilel NP) Lichen sclerosus et atrophicus (Acute 08/10/12) Patient instructed to use clobetasol daily ?2 weeks and then twice weekly. Mild persistent asthma without complication (Chronic 09/17/16) Hypertension (Chronic) Leg pain, right (Acute) Pelvic floor dysfunction (Acute) Bunion, right foot (Acute) Bunion, left foot (Acute) Hammertoe of right foot (Acute) Metatarsalgia of both feet (Acute) Achilles tendon contracture, bilateral (Acute) Migraine headache with aura (Chronic) started age 70; Right-sided Walker's palsy (Acute) Medical History Anxiety 05/28/17 CLAUDE-7 SCORE=12 Degenerative tear of meniscus of left knee Depressive disorder DEPRESSION/ANXIETY Diverticula of colon 08/05/15; COLONOSCOPY; DR. BARAHONA Female genital prolapse (09/06/17) Herpes (06/26/14) Hyperlipidemia (07/20/13) Lactose intolerance Lumbar degenerative disc disease (07/21/13) Medial meniscus tear Pes anserinus bursitis of left knee Right knee pain Scoliosis Tendinitis of long head of biceps brachii of both shoulders Trigger finger, left middle finger Trigger finger, right middle finger Urinary, incontinence, stress female (05/11/11) cough incontinence Vaginal atrophy Surgical History Colonoscopy - MAC (~2004) Fracture, Closed Treatment LEFT FEMUR (1971) H/O bilateral salpingo-oophorectomy 02/22/98 H/O bladder repair surgery 02/22/98 S/P abdominal hysterectomy 02/22/98 Family History Mother Essential hypertension Father , age 94 Heart disease Hyperlipidemia Brother Essential hypertension Hyperlipidemia Maternal Grandfather Heart disease Stroke Paternal Grandfather Heart disease Maternal Grandmother Breast cancer Paternal Grandmother Personal history of malignant neoplasm STOMACH Social History Smoking/Tobacco Use Status: Former Tobacco Use Quit Date: 02/23/88 Tobacco: How many years used: 20 Second Hand Exposure: Yes Smoking risk assessment performed?: Yes Alcohol Intake: former Drug use: Never Substance use type: does not use Counseling given: Yes Counseling provided: none Caregiver/Support person: No Household members: none Housing: house Number of Children: 1 Communication Needs: None Pets and animals: Yes Pets and animals: cat(s) Sexually active: No Do you think of yourself as: straight/heterosexual Current gender identity: female What is your relationship status?: How often do you talk on the phone with friends or family?: three or more times per week How often do you get together with friends or relatives?: once per week How often do you attend rastafarian or oriental orthodox services?: 1-3 times per year Do you belong to any clubs or organized social groups?: no Panel score (0-1 are the most socially isolated patients): 1 What type of physical activity do you participate in: other Details: yard work, gardening Duration: 30-45 minutes/day Frequency: 1-2 times per week Bree/Zoroastrianism: Caodaism Special bree needs: No Seatbelt use: always Helmet use: Yes Drive intox or ride w/intox 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 Date GA/Weeks # Preg Succ Route Wgt Sex Labor Lgth Anesth esia Location [facility]1969 vaginal Exam Const General: cooperative, healthy appearing, no acute distress and well groomed Orientation: alert, awake and oriented x3 HENMT Head: normal to inspection Ears: hearing grossly normal bilaterally and TM's normal bilaterally Mouth: oral mucosae normal and moist mucous membranes Throat: posterior oropharynx normal Eyes Visual Quiroz: normal visual quiroz by confrontation Alignment and Position: alignment normal Periorbital: periorbital findings normal Eyelids: eyelids normal Sclera: sclerae normal Cornea: corneas normal Pupils: PERRL EOM: EOM intact bilaterally and No nystagmus Neck Neck: normal visual inspection, full ROM and no meningeal signs Resp Effort & Inspection: normal respiratory effort and able to speak in complete sentences Auscultation: clear to auscultation bilaterally Cardio Rate: regular rate Rhythm: regular rhythm Heart Sounds: S1 normal and S2 normal Neuro General: patient alert, patient awake, patient oriented x3, gait normal, tone normal, moves all extremities and not confused Cranial Nerves: sense of smell intact, PERRL, accommodation normal, EOM intact bilaterally, no nystagmus, tongue midline, gag reflex normal, hearing normal, able to rotate head bilaterally, able to elevate shoulders bilaterally, individual cranial nerve findings VII: abnormal (R. Slight lateral smile droop and paresthesia), no nystagmus and symmetric palate elevation Cognition: normal cognition Speech: speech normal Motor: muscle tone normal throughout, strength 5/5 throughout, no pronator drift, no movement abnormalities noted and no fasciculations Sensory Exam: no sensory deficits noted Coordination: [id number] test normal, Does not sway with eyes open, rapid alternating movement UE normal and rapid alternating movement LE normal Course Vital Signs Vital signs: Vital Signs Temperature 36.9 C 11/28/22 11:17 Pulse 70 11/28/22 11:17 Respiratory Rate 18 11/28/22 11:17 Blood Pressure 209/84 H 11/28/22 11:17 Pulse Oximetry 95 11/28/22 11:17 Temperature 36.9 C 11/28/22 11:24 Temperature Source Tympanic 11/28/22 11:24 Pulse 60 11/28/22 15:02 Respiratory Rate 16 11/28/22 11:24 Respiratory Effort Normal, Non-Labored 11/28/22 11:21 Blood Pressure 161/93 H 11/28/22 15:02 Blood Pressure Mean 119 11/28/22 15:02 Blood Pressure Position Supine 11/28/22 11:24 Pulse Oximetry 94 11/28/22 15:02 Oxygen Delivery Method Room Air 11/28/22 11:24 Oxygen Flow Rate 0 11/28/22 11:24 Pain Level 4 11/28/22 12:22 Lab/Test Results Lab/Test Results: Laboratory Tests Range/Units 11/28/22 11/28/22 11/28/22 11:20 11:20 11:20 WBC (4.4-10.8) 10^3/uL 8.05 RBC (3.93-5.22) 10^6/uL 4.62 Hgb (11.2-15.7) g/dL 14.5 Hct (36.0-46.0) % 43.3 MCV (80-95) fL 94 MCH (27.0-33.0) pg 31.4 MCHC (32.0-36.0) % 33.5 RDW (11.7-14.6) % 13.4 Plt Count (130-400) 10^3/uL 250 MPV (8.0-11.0) fL 10.6 Immature Gran % 0.4 Neutrophils % 58.7 Lymphocytes % 26.6 Monocytes % 7.6 Eosinophils % 5.8 Basophils % 0.9 Nucleated RBC % (0.0-0.3) % 0.0 Absolute Neutrophils (1.2-6.7) 10^3/uL 4.73 Absolute Lymphocytes (1.2-3.4) 10^3/uL 2.14 Absolute Monocytes (0.1-0.8) 10^3/uL 0.61 Absolute Eosinophils (0.0-0.7) 10^3/uL 0.47 Absolute Basophils (0.0-0.2) 10^3/uL 0.07 PT (9.3-11.0) sec 10.0 INR (0.9-1.1) 1.0 APTT (21.5-31.9) sec 25.0 Sodium (136-145) mmol/L 136 Potassium (3.5-5.1) mmol/L 3.8 Chloride (98-107) mmol/L 101 Carbon Dioxide (21.0-32.0) mmol/L 27.0 Anion Gap (3-11) mmol/L 8.0 BUN (7-18) mg/dL 18 Creatinine (0.55-1.02) mg/dL 0.8 Est GFR (CKD-EPI 2020) (mL/min/1.73m2) 77.27 Glucose (74-106) mg/dL 139 H Calcium (8.5-10.1) mg/dL 8.9 Total Bilirubin (0.2-1.0) mg/dL 0.4 AST (15-37) U/L 18 ALT (14-59) U/L 12 L Alkaline Phosphatase (46-116) U/L 75 Total Protein (6.4-8.2) g/dL 7.2 Albumin (3.4-5.0) g/dL 3.3 L
--- NOTE | 2022-11-28 16:09 | NUR.NOTE ---
Pt referred to Primary Care within 3-5 days for [place] Palsy and Hypertension
== END 2022-11-28 16:20 | disposition home or self-care (01) ==
PROVIDERS: Student in an Organized Health Care Education/Training Program; Emergency Provider Nurse Practitioner Family; PCP Family Medicine
DX: G51.0 Bell's palsy (principal); I10 Essential (primary) hypertension; Z87.891 Personal history of nicotine dependence
CPT/HCPCS: 36415; 70496; 70498; 80053; 96374; 99285; 70450; 85025; 85610; 85730; 99284; J0131

== ENCOUNTER 2022-12-06 10:32 | Emergency (ER) | payer MEDICARE, MEDICAID, SELFPAY ==
[2022-12-06] VITALS (8 sets, daily range): BP systolic 166–204; BP diastolic 71–91; PULSE 62–69; RESP 18; O2SAT 97
--- NOTE | 2022-12-06 11:00 | RT.EKG_ITS ---
APPROVED REPORT Exam: Resting ECG Reason for Exam: facial numbness Patient Location: E HR:60 bpm ECG Measurements Heart Rate 60 AXIS NJ 137 P 54 QRSd 98 QRS -10 QT 402 T 31 QTc 403 Conclusion Sinus Rhythm Normal Normal [place] I have reviewed and interpreted ECG and agree with software generated interpretation.
--- NOTE | 2022-12-06 11:00 | DI.CT_ITS ---
Exam(s) CT HEAD WO EXAM: CT HEAD WO CLINICAL HISTORY: SPEARS, facial numbness. TECHNIQUE: Imaging Protocol: Axial computed tomography images with coronal and sagittal reformatted images were created and reviewed COMPARISON: CT CT BRAIN NECK CTA from 11/28/2022 FINDINGS: Ventricles and Extra axial spaces: Normal in size and morphology for the patient's age. Hemorrhage: None. Cerebral parenchyma: No evidence of acute infarct or mass. No significant atrophy. No visible whit e matter changes. Midline shift: None. Brainstem/Cerebellum: Normal. Calvarium: Normal. Visualized Paranasal sinuses/Mastoids: Ethmoid and maxillary sinus mucosal thickening. Mucous retent ion cyst versus polyp left maxillary sinus. Soft Tissues: Unremarkable. IMPRESSION: No acute intracranial process. RADIATION DOSE DELIVERED: Total DLP DATA REPOSITORY: All CT scans at this facility are submitted to the National Radiology Data Registry (NRDR) Dose Index Registry (DIR) with the [employer] (A[employer]). RADIATION OPTIMIZATION: All CT scans at this facility use at least one of these dose optimization te chniques: automated exposure control; mA and/or kV adjustment per patient size (includes targeted exa ms where dose is matched to clinical indication); or iterative reconstruction.
--- NOTE | 2022-12-06 11:08 | W.ED.GENAD ---
Discharge Plan Disposition Patient Disposition: Home Condition: Improving Discharge Details Clinical Impression: Anxiety, Headache, Stress at home, Hypertension Primary Care Provider: Gretta Garcia ED Provider: Ava Luu Home Meds and New Rx's Prescriptions: Continued fluticasone propionate [Flovent HFA] 110 mcg/actuation HFA aerosol inhaler 2 puff inhalation BID Qty: 12 4RF betamethasone, augmented 0.05 % ointment 1 applic topical BID Qty: 50 4RF Rx Instructions: apply tiny amount to vulva twice daily vitamin E (dl, acetate) 45 mg (100 unit) capsule 45 mg PO DAILY vitamin B complex Tablet 1 tab PO DAILY cholecalciferol (vitamin D3) 3,000 unit tablet 1,000 unit PO DAILY docusate sodium [Colace] 100 mg capsule 100 mg PO BID PRN multivitamin 1 EACH tablet 1 tab PO DAILY Acidophilus-Pectin 1 EACH capsule 1 cap PO DAILY citalopram [Celexa] 20 mg tablet 20 mg PO DAILY Qty: 90 5RF albuterol sulfate 90 mcg/actuation HFA aerosol inhaler 2 puff IH Q6H PRN (Reason: shortness of breath or wheezing) Qty: 18 4RF loratadine [Claritin] 10 mg tablet 10 mg PO DAILY PRN (Reason: allergy symptoms) Qty: 30 3RF Rx Instructions: Take one tab daily as needed for allergy symptoms acetaminophen [Tylenol] 325 MG tablet 325 mg PO Q6H PRN PRN0RF aspirin 81 mg tablet,chewable 81 mg PO DAILY Qty: 14 0RF Changed amlodipine 2.5 mg tablet 5 mg PO DAILY Qty: 90 1RF Discharge Instructions Instructions: Hypertension (ED), Anxiety (ED) Additional Instructions: Your labs and imaging are reassuring here today. Your blood pressure was elevated and we are increasing your Amlodipine from 2.5mg to 5mg. Please continue with this increased dosing until reevaluated by your primary care. Please call your primary care tomorrow to schedule follow up for recheck of your BP in the next week. Please keep your upcoming ultrasound appointment. I am concerned that your stress is causing you to not feel well and is increasing your headaches and other symptoms. Please continue with your weekly therapy appointments. Please discuss your increased anxiety with your primary care. [facility] will be calling you tomorrow to check in and discuss resources. You may also reach them anytime at [phone]. For more resources to help care for your mom at home, please call [facility] at [phone]. You may also continue to work with [employer]. If you develop any new/worsening symptoms, please seek care urgently once again. Referrals: Gretta Garcia MD [Primary Care Provider] - Discharge Data Discharge Date/Time-TO BE ENTERED AT DEPARTURE: 12/06/22 13:46 Medical Decision Making Patient is a pleasant 72 year old female with PMH significant for hyperlipidenia, herpes, anxiety, depression and recent dx of [place] palsy, presenting with persistent SPEARS and right sided facial tingling. Was here one week ago for the same, at that time CTA and labs obtained which were without signficant abnormality. Questioning if she has drooping of the right upper eye lid. States she has chronic SPEARS and current SPEARS is very similar, no thunderclap or signficant change. Denies visual changes, focal weakness, other sensory changes, chest pain, SOB, change in bowel or bladder habits, fevers/chills. We were originally contact by PCP who was concerned for thyroid dysfunction. Last checked in 2021, no hx of thyroid dysfunction. No weight changes or evidence of metabolic dysfunction. Incidental enlargement of the thyroid was noted on recent CT, US scheduled for this week. On exam, sara appears very anxious. 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 Not making time for herself or her own well being. While patient had questioned droop to right forehead/upper eye lid, I do not see indication objectively of this. Neurologically intact. No evidence of posterior infarct, balance is intact. Normal heart/lung exam. Based on patient's reaction, I am primarily concerned for a stress response at this time. However, considered more emergent issues and do plan to repeat her CT head as her headache and lip numbness has returned. I do not note any objective evidence of CVA or TIA. Symptoms sound to be very intermittent and brought on by increased stress. Denies any rash or indications of infection. Primary care is also concerned about potential thyroid dysfunction so we will obtain a TSH although I do not note any metabolic issues. Consulted with [facility] regarding patient's continued stress, concerns for caring for her mom. She is worried about her self as she ages as well, she lives in her mom's house to care for her but when her mother passes, she will not be able to stay in the home. Patient feels like she has good support with weekly therapy visits but is wanting other types of supports. Spoke with ALEXIS who recommended: Wellness visits through [facility], [facility], [facility] (supporting adults staying at home) through [facility] [phone]. through [facility] will also reach out to the patient tomorrow. Will give these to patient. Labs reviewed. Patient has a leukocytosis of 12.5 but this is likely associated with her steroids. Also discussed that the steroids may be causing her to have an increase in her blood pressure. I do not see any indication of active infection at this time. Her headache is resolved with Tylenol, she has not had any fevers. She has no meningismus. Labs otherwise reviewed without any significant abnormality noted. TSH within normal limits. No evidence of UTI on urinalysis. I did also order a tick and Lyme panel and these are pending. She did have a tick bite this past spring. FINDINGS: Brain: No acute intracranial hemorrhage.. There is mild diffuse heterogeneity of the white matter attenuation, consistent with chronic white matter ischemic changes. Mild cerebral atrophy Cerebral ventricles: No ventriculomegaly. Paranasal sinuses: Opacities in the ethmoid sinuses and maxillary sinuses may represent mild sinusitis Mastoid air cells: Visualized mastoid air cells are well aerated. Bones/joints: Unremarkable. No acute fracture. Soft tissues: Unremarkable. IMPRESSION: No acute intracranial hemorrhage.. Discussed these findings with the patient. She is feeling significantly improved. Her blood pressure was elevated and she is not taking her amlodipine today gave her 5 mg dosing here. She does have more of the 2.5 at home and will increase her dosing to 5 mg daily. Since that she is tolerating a 2.5 well. Primarily concerned for her mental health. She will continue to follow-up with her own mental health care provider. She is also excited about some of the resources that were advised by [facility]. Strict return precautions were discussed. Encourage close follow-up with primary care. I also advised that she discuss her stress and current living state with them further. Mental health will also be calling tomorrow to check in with her and ensure that she has the resources required. All of her questions and concerns were addressed and she is in agreement with this plan. Headache is resolved and blood pressures improving. HPI General Date/Time Provider Initiated Documentation: 12/06/22 10:33. Limitations to Documentation: no limitations. Information obtained by: patient, RN/MD, RN notes reviewed and old records reviewed. History of Present Illness 72 year old F presents to the emergency department with the chief complaint of SPEARS, tingling right side of mouth, described as moderate and similar to prior episodes, with intensity rated at 3. Quality is described as aching, and is localized to the head and face (forehead). Patient reports no radiation. Patient started experiencing this day(s) Related Data Home Medications Medication Instructions Recorded Confirmed Lactobacillus acidophilus-pectin 1 cap PO DAILY 05/26/12 12/06/22 capsule (Acidophilus-Pectin capsule) multivitamin 1 tab PO DAILY 05/26/12 12/06/22 acetaminophen 325 mg tablet 325 mg PO Q6H PRN PRN 12/24/16 12/06/22 (Tylenol) cholecalciferol (vitamin D3) 75 1,000 unit PO DAILY 02/10/18 12/06/22 mcg (3,000 unit) tablet docusate sodium 100 mg capsule 100 mg PO BID PRN 05/16/19 12/06/22 (Colace) fluticasone propionate 110 2 puff inhalation BID #12 grams 10/23/21 12/06/22 mcg/actuation HFA aerosol inhaler (Flovent HFA) betamethasone, augmented 0.05 % 1 applic topical BID #50 grams 06/08/22 12/06/22 topical ointment citalopram 20 mg tablet (Celexa) 20 mg PO DAILY #90 tabs 06/15/22 12/06/22 albuterol sulfate 90 mcg/actuation 2 puff inhalation Q6H PRN 09/09/22 12/06/22 aerosol inhaler shortness of breath or wheezing #18 grams loratadine 10 mg tablet (Claritin) 10 mg PO DAILY PRN allergy 10/15/22 12/06/22 symptoms #30 tabs vitamin B complex 1 tab PO DAILY 11/25/22 12/06/22 vitamin E (dl, acetate) 45 mg (100 45 mg PO DAILY 11/25/22 12/06/22 unit) capsule aspirin 81 mg chewable tablet 81 mg PO DAILY #14 tabs 11/28/22 12/06/22 amlodipine 2.5 mg tablet 5 mg (2 x 2.5 mg) PO DAILY #90 tabs 12/06/22 12/06/22 Previous Rx's Medication Instructions Recorded acetaminophen 325 mg tablet 325 mg PO Q6H PRN PRN 12/24/16 (Tylenol) fluticasone propionate 110 2 puff inhalation BID #12 grams 10/23/21 mcg/actuation HFA aerosol inhaler (Flovent HFA) betamethasone, augmented 0.05 % 1 applic topical BID #50 grams 06/08/22 topical ointment citalopram 20 mg tablet (Celexa) 20 mg PO DAILY #90 tabs 06/15/22 albuterol sulfate 90 mcg/actuation 2 puff inhalation Q6H PRN 09/09/22 aerosol inhaler shortness of breath or wheezing #18 grams loratadine 10 mg tablet (Claritin) 10 mg PO DAILY PRN allergy 10/15/22 symptoms #30 tabs aspirin 81 mg chewable tablet 81 mg PO DAILY #14 tabs 11/28/22 amlodipine 2.5 mg tablet 5 mg (2 x 2.5 mg) PO DAILY #90 tabs 12/06/22 Allergies Allergy/AdvReac Type Severity Reaction Status Date / Time bupropion HCl AdvReac Severe FELT CRAZY Verified 12/01/22 14:10 [From Wellbutrin] atorvastatin calcium AdvReac Intermediate Diarrhea Verified 12/01/22 14:10 [From Lipitor] codeine AdvReac Nausea Verified 12/01/22 14:10 lactose AdvReac Diarrhea/Cr Verified 12/01/22 14:10 amping propoxyphene AdvReac Nausea Verified 12/01/22 14:10 General Stated Complaint: GenMedical ANNIE: 3 Review of Systems Constitutional Constitutional: Reports as per HPI, Denies chills, Reports fatigue, Denies fever(s), Denies frequent falls, Reports headache(s) and Denies weakness Eyes Eyes: Reports as per HPI, Denies blurry vision and Denies change in vision ENT Ears, Nose, Mouth, and Throat: Denies vertigo, Reports headache(s) and Denies neck pain Cardiovascular Cardiovascular: Reports as per HPI, Denies chest pain, Denies lightheadedness, Denies radiating jaw, neck or arm pain, Denies dyspnea and Denies dyspnea on exertion Respiratory Respiratory: Reports as per HPI, Denies chest congestion, Denies cough, Denies dyspnea and Denies dyspnea on exertion Gastrointestinal Gastrointestinal: Reports as per HPI, Denies abdominal pain, Denies change in bowel habits, Denies nausea and Denies vomiting Musculoskeletal Musculoskeletal: Reports as per HPI, Denies back pain, Denies myalgias and Denies neck pain Integumentary/Breasts Skin/Breast: Reports as per HPI and Denies rash Neurologic Neurologic: Reports as per HPI, Denies abnormal movements, Denies abnormal speech, Denies behavioral changes, Denies vertigo, Denies frequent falls, Reports headache(s), Denies localized weakness and Denies weakness Psychiatric Psychiatric: Denies abnormal sleep pattern, Reports anxiety, Denies behavioral changes, Reports depression, Reports hopelessness, Reports anhedonia and Denies suicidal ideation Endocrine Endocrine: Reports fatigue PFSH All Active Problems (Updated 12/06/22 @ 13:26 by SHANNAN Briones) Stress at home (Acute) Headache (Acute) Anxiety (Chronic) Tingling of face (Acute) Abnormal CT scan (Acute) Lichen sclerosus et atrophicus (Acute 08/10/12) Patient instructed to use clobetasol daily ?2 weeks and then twice weekly. Mild persistent asthma without complication (Chronic 09/17/16) Hypertension (Chronic) Leg pain, right (Acute) Pelvic floor dysfunction (Acute) Bunion, right foot (Acute) Bunion, left foot (Acute) Hammertoe of right foot (Acute) Metatarsalgia of both feet (Acute) Achilles tendon contracture, bilateral (Acute) Migraine headache with aura (Chronic) started age 70; Right-sided Walker's palsy (Acute) Medical History Anxiety 05/28/17 CLAUDE-7 SCORE=12 Degenerative tear of meniscus of left knee Depressive disorder DEPRESSION/ANXIETY Diverticula of colon 08/05/15; COLONOSCOPY; DR. BARAHONA Female genital prolapse (09/06/17) Herpes (06/26/14) Hyperlipidemia (07/20/13) Lactose intolerance Lumbar degenerative disc disease (07/21/13) Medial meniscus tear Pes anserinus bursitis of left knee Right knee pain Scoliosis Tendinitis of long head of biceps brachii of both shoulders Trigger finger, left middle finger Trigger finger, right middle finger Urinary, incontinence, stress female (05/11/11) cough incontinence Vaginal atrophy Surgical History Colonoscopy - MAC (~2004) Fracture, Closed Treatment LEFT FEMUR (1971) H/O bilateral salpingo-oophorectomy 02/22/98 H/O bladder repair surgery 02/22/98 S/P abdominal hysterectomy 02/22/98 Family History Mother Essential hypertension Father , age 94 Heart disease Hyperlipidemia Brother Essential hypertension Hyperlipidemia Maternal Grandfather Heart disease Stroke Paternal Grandfather Heart disease Maternal Grandmother Breast cancer Paternal Grandmother Personal history of malignant neoplasm STOMACH Social History Smoking/Tobacco Use Status: Former Tobacco Use Quit Date: 02/23/88 Tobacco: How many years used: 20 Second Hand Exposure: Yes Smoking risk assessment performed?: Yes Alcohol Intake: former Drug use: Never Substance use type: does not use Counseling given: Yes Counseling provided: none Caregiver/Support person: No Household members: none Housing: house Number of Children: 1 Communication Needs: None Pets and animals: Yes Pets and animals: cat(s) Sexually active: No Do you think of yourself as: straight/heterosexual Current gender identity: female What is your relationship status?: How often do you talk on the phone with friends or family?: three or more times per week How often do you get together with friends or relatives?: once per week How often do you attend bahai or gnosticism services?: 1-3 times per year Do you belong to any clubs or organized social groups?: no Panel score (0-1 are the most socially isolated patients): 1 What type of physical activity do you participate in: other Details: yard work, gardening Duration: 30-45 minutes/day Frequency: 1-2 times per week Bree/Judaism: Sabianist Special bree needs: No Seatbelt use: always Helmet use: Yes Drive intox or ride w/intox 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 Date GA/Weeks # Preg Succ Route Wgt Sex Labor Lgth Anesthesia Location Prov Complic 01/21/1969 vaginal Exam Const General: cooperative, healthy appearing, comfortable, no acute distress, well developed and well groomed Nutritional Appearance: well nourished and overweight Orientation: alert, awake and oriented x3 HENMT Head: normal to inspection, no palpable skull fracture, normocephalic and atraumatic Ears: hearing grossly normal bilaterally, external ears normal and TM's normal bilaterally General nose exam: external nose normal Mouth: oral mucosae normal and moist mucous membranes Throat: posterior oropharynx normal Eyes General: appearance normal, both eyes and all related structures Alignment and Position: alignment normal Periorbital: periorbital findings normal Eyelids: eyelids normal Sclera: sclerae normal Cornea: corneas normal Pupils: PERRL EOM: EOM intact bilaterally Neck Neck: normal visual inspection, full ROM, no lymphadenopathy and no meningeal signs Resp Effort & Inspection: normal respiratory effort, able to speak in complete sentences and no respiratory distress Auscultation: clear to auscultation bilaterally, no rales, no rhonchi and no wheezes Cardio Rate: regular rate Rhythm: regular rhythm Heart Sounds: S1 normal and S2 normal GI Inspection: normal to inspection and non-distended Palpation: soft, no hepatosplenomegaly, not firm, no guarding, not rigid and nontender Percussion: normal to percussion Auscultation: normal bowel sounds Back/Spine/Pelvis Cervical Spine: normal cervical lordosis and cervical ROM normal Skin General skin exam: no rashes or lesions noted Neuro General: patient alert, patient awake and patient oriented x3 Cranial Nerves: CN's II-XI intact bilaterally Cognition: normal cognition Speech: speech normal Gait: normal gait Motor: muscle tone normal throughout, strength 5/5 throughout, no pronator drift, no movement abnormalities noted and no fasciculations Sensory Exam: no sensory deficits noted Coordination: [id number]-[id number]-[id number] test normal, riog-gn-ocbn test normal, Romberg test normal, Does not sway with eyes open and rapid alternating movement UE normal Extrem General: normal to inspection, capillary refill normal, no pedal edema and no calf tenderness Psych Appearance: grossly normal and well kempt Mental Status: mental status grossly normal Speech and Movement: speech and movement normal Mood: anxious mood Affect: sad Attitude: cooperative Thought Process: normal Thought Content: normal Course Vital Signs Vital signs: Vital Signs Pulse 67 12/06/22 10:38 Respiratory Rate 18 12/06/22 10:38 Blood Pressure 191/71 H 12/06/22 10:38 Pulse Oximetry 97 12/06/22 10:38 Temperature Source Oral 12/06/22 10:38 Pulse 67 12/06/22 10:38 Respiratory Rate 18 12/06/22 10:38 Respiratory Effort Normal 12/06/22 10:48 Respiratory Depth Normal 12/06/22 10:48 Respiratory Pattern Normal 12/06/22 10:48 Blood Pressure 191/71 H 12/06/22 10:38 Blood Pressure Position Supine 12/06/22 10:38 Pulse Oximetry 97 12/06/22 10:38 Oxygen Delivery Method Room Air 12/06/22 10:38 Oxygen Flow Rate 0 12/06/22 10:38 Pain Level 3 12/06/22 10:38
[2022-12-06 11:16] LABS: Bilirubin Negative (Negative); Blood Negative (Negative); Clarity Clear (Clear); Glucose Negative (Negative); Ketones Negative (Negative); Leukocyte Esterase Negative (Negative); Nitrite Negative (Negative); Urobilinogen 0.2 mg/dL (Up to 0.2); pH 6.5 (5-8)
[2022-12-06 11:22] LABS: Abs Immature Grans 0.17 10^3/uL (0.0-0.06); Absolute Basophil Count 0.08 10^3/uL (0.0-0.2); Absolute Lymphocyte Count 2.92 10^3/uL (1.2-3.4); Absolute Monocyte Count 0.78 10^3/uL (0.1-0.8); Absolute Neutrophil Count 8.42 10^3/uL (1.2-6.7); Basophils % 0.6; Eosinophils % 1.6; HCT 47.1 % (36.0-46.0); HGB 15.6 g/dL (11.2-15.7); Immature Grans % 1.4; Lymphocytes % 23.2; MCH 30.8 pg (27.0-33.0); MCHC 33.1 % (32.0-36.0); MCV 93 fL (80-95); Monocytes % 6.2; Platelet Count 275 10^3/uL (130-400); RBC 5.06 10^6/uL (3.93-5.22); RDW-SD 47.2 fL; WBC 12.57 10^3/uL (4.4-10.8)
[2022-12-06] MEDS: Acetaminophen 325 MG TAB PO (11:37)
[2022-12-06 11:47] LABS: ALT 17 U/L (14-59); AST 19 U/L (15-37); Albumin 3.7 g/dL (3.4-5.0); Alkaline Phosphatase 82 U/L (46-116); Anion Gap 7.2 mmol/L (3-11); BUN 18 mg/dL (7-18); Bilirubin, Total 0.4 mg/dL (0.2-1.0); CO2 27.8 mmol/L (21.0-32.0); CREATININE 0.8 mg/dL (0.55-1.02); Calcium 9.4 mg/dL (8.5-10.1); Chloride 101 mmol/L (98-107); Estimated GFR 77.27 (mL/min/1.73m2); Glucose 100 mg/dL (74-106); Magnesium 1.9 mg/dL (1.8-2.4); Potassium 3.4 mmol/L (3.5-5.1); Sodium 136 mmol/L (136-145); TSH (W/Ref FT4) 0.67 uIU/mL (0.36-3.74); Total Protein 7.7 g/dL (6.4-8.2)
--- NOTE | 2022-12-06 12:19 | DI.VRAD_ITS ---
PROCEDURE INFORMATION: Exam: CT Head Without Contrast Exam date and time: 12/06/2022 12:03 PM Age: 72 years old Clinical indication: Other: SPEARS, facial numbness TECHNIQUE: Imaging protocol: Computed tomography of the head without contrast. COMPARISON: CT HEAD - STROKE PROTOCOL 11/28/2022 11:53 AM FINDINGS: Brain: No acute intracranial hemorrhage.. There is mild diffuse heterogeneity of the white matter attenuation, consistent with chronic white matter ischemic changes. Mild cerebral atrophy Cerebral ventricles: No ventriculomegaly. Paranasal sinuses: Opacities in the ethmoid sinuses and maxillary sinuses may represent mild sinusitis Mastoid air cells: Visualized mastoid air cells are well aerated. Bones/joints: Unremarkable. No acute fracture. Soft tissues: Unremarkable. IMPRESSION: No acute intracranial hemorrhage.. Dictated and Authenticated by: Lele Jordan MD. Ordering:FELIBERTO Escalante MD
[2022-12-06] MEDS: amLODIPine 5 MG TAB PO (12:49)
[2022-12-06 17:41] LABS: Lab Add On Test DONE
[2022-12-06 18:00] LABS: FREE T4 1.11 ng/dL (0.76-1.46)
[2022-12-07 18:28] LABS: Thyroperoxidase Antibody <28 U/mL (<=60)
[2022-12-08 12:45] LABS: Lyme Ab w Rflx to Lyme Confirm Negative (Negative)
[2022-12-09 23:05] LABS: Anaplasma phagocytophilum Negative (Negative); B. miyamotoi PCR Negative (Negative); Babesia divergens/MO-1 Negative (Negative); Babesia duncani Negative (Negative); Babesia microti Negative (Negative); Ehrlichia chaffeensis Negative (Negative); Ehrlichia ewingii/canis Negative (Negative); Ehrlichia muris eauclairensis Negative (Negative)
== END 2022-12-06 15:26 | disposition home or self-care (01) ==
PROVIDERS: Student in an Organized Health Care Education/Training Program; Emergency Provider Physician Assistant; PCP Family Medicine
DX: R51.9 Headache, unspecified; F41.9 Anxiety disorder, unspecified; I10 Essential (primary) hypertension; Z73.3 Stress, not elsewhere classified; Z79.52 Long term (current) use of systemic steroids; Z79.899 Other long term (current) drug therapy; E78.5 Hyperlipidemia, unspecified; F32.A Depression, unspecified; E04.9 Nontoxic goiter, unspecified; G51.0 Bell's palsy
CPT/HCPCS: 80053; 87798; 93005; 99285; 70450; 81003; 83735; 84439; 84443; 85025; 86376; 86618; 93010; 99284

== ENCOUNTER → 2022-12-08 01:47 | Outpatient (CLI) | payer MEDICARE, MEDICAID, SELFPAY ==
--- NOTE | 2022-12-08 08:15 | DI.US_ITS ---
Exam(s) US THYROID EXAM: US THYROID CLINICAL HISTORY: abnormal thyroid found on CT,R93.89. TECHNIQUE: Ultrasound thyroid performed using standard protocol. COMPARISON: Recent relevant CT scan was reviewed FINDINGS: Both thyroid lobes as well as the isthmus are enlarged. There are 3 solid nodules in the right lobe, 2 of these measuring over 1 cm size and there is a single dominant nodule in the left lobe LEFT THYROID LOBE: Measures 2.2 cm AP x 3 cm wide x 6.1 cm craniocaudal There is a single dominant predominantly solid nodule in the left thyroid lobe with details as follow s: Size: This nodule measures 3.6 cm by 2.0 cm x 2.8 cm Composition: Predominately solid-2 points Echogenicity: Hypoechoic-2 points Shape: Wider than taller-0 points Margin: Hzpclcgbeg-wlj-[id number]-0 points Echogenic Foci: None-0 points Total Points for this nodule: 4 ACR Ti-Rads Category: TR4 This TR 4 nodule requires ultrasound-guided FNA as it measures greater than 1.5 cm ISTHMUS: Thickened measuring 7-8 mm but are no nodules evident in the isthmus RIGHT THYROID LOBE: Measures 2.8 cm AP x 3.4 wide x 6.4 cm craniocaudal There are 2 nodules measuring greater than 1 cm in the right lobe. Details as follows: Nodule #1 this nodule is located in the mid-lower aspect of the right lobe Size: Measures 2.2 x 1.5 x 1.7 cm Composition: Solid-2 points Echogenicity: Isoechoic to surrounding parenchyma-1 point Shape: Wider than taller in the transverse plane-0 points Margin: Ahu-rbpkipn-3 points Echogenic Foci: None-0 points Total points for this nodule: 3 therefore, ACR Ti-Rads Category: 3 This TR 3 nodule can be followed, as it measures less than 2.5 cm Nodule #2 this is the 2nd-smaller nodule in the right lobe and is located inferior to the other nodul e described above. Size: Measures 1.0 x 0.9 x 1.0 cm Composition: Solid-2 points Echogenicity: Hypoechoic compared to surrounding parenchyma-2 points Shape: Wider than taller in the transverse plane-0 points Margin: Ead-dobvqkm-7 points Echogenic Foci: None-0 points Total Points for this nodule: 4 ACR Ti-Rads Category: 4 This TR 4 nodule can be followed as it measures less than 1.5 cm LYMPH NODES: There is no significant adenopathy. IMPRESSION: Both thyroid lobes are enlarged and contain nodules. The 2 nodules in the right lobe can be followed, but the dominant solitary solid nodule in the left l obe is a TR 4 level nodule and requires ultrasound-guided FNA as it measures greater than 1.5 cm size . There is no significant left adenopathy. DATA REPOSITORY:
== END ==
PROVIDERS: PCP Family Medicine; Visit Provider Family Medicine
DX: R93.89 Abnormal findings on diagnostic imaging of other specified body structures (principal)
CPT/HCPCS: 76536

== ENCOUNTER → 2023-01-19 02:44 | Outpatient (CLI) | payer MEDICARE, MEDICAID, SELFPAY ==
--- NOTE | 2023-01-19 08:15 | DI.US_ITS ---
Exam(s) US NEEDLE LOCAL OTHER WO RAD EXAM: left side thyroid nodule,ULTRASOUND GUIDED BX,E04.1 COMPARISON: US US THYROID from 12/08/2022 TECHNIQUE: Ultrasound performed using standard protocol. FINDINGS: Sonography was provided for Dr. Asif during the performance of a left thyroid nodule biopsy. Plea se refer to the procedure report for complete details. DATA REPOSITORY:
--- NOTE | 2023-01-19 12:32 | PAPNONF_PTH ---
PATIENT: Joselyn Gray LOC: [facility] U#:[id number] AGE/SX: 74/F ROOM: RE01/19/[address]: Eli Langford : 1950 BED: DIS: SPEC #: [id number] RECD: 01/19/23 12:47 STATUS: NAVYA REQ #: [id number] JOVITA: 01/19/23 12:[address]: Eli Langford DEPT: [facility] Cytology RECD BY: Karina Streeter ENTERED: 01/19/23 12:49 SP TYPE: EUGENE OJEDA DR: Gretta Garcia Tissues: 1 - BODY FLUID CYTO-FINE NEEDLE [facility] Procedures: BODY FLUID CYTO-FINE NEEDLE [facility]IRATE[facility] Comments: [id number] (PATH FNA CONSULT) (REFRIGERATED)
--- NOTE | 2023-01-19 12:45 | W.PROCNOTE ---
Date of service: 01/19/23 Time of Service: 12:45 Procedure Note Date of procedure: 01/19/23 Procedure: Ultrasound-guided FNA, left thyroid nodule, pathology present Procedure Diagnosis: Left thyroid nodule, meeting criteria for biopsy Procedure Indications: The patient has a left-sided thyroid nodule which meets criteria for biopsy. Options were explained to the patient regarding further management. She elected to undergo the above procedure. Consent was filled out and signed. Procedure Description: The patient was positioned in a supine position with her neck slightly extended. Ultrasound was used to localize the thyroid nodule on the left after the patient was prepped and draped. 1% lidocaine with 1/100,000 epinephrine was injected in the skin and subcutaneous tissues overlying the nodule and then a 25-gauge needle passed repeatedly into the nodule under direct visualization with the ultrasound. Cellular adequacy was verified by pathology and then 2 additional passes were made for potential Afirma testing. The patient tolerated procedure well and her vital signs remained stable. A sterile dressing was applied after ensuring adequate hemostasis. The patient was then allowed to sit and then stand. She will remove the bandage tonight and not replace it. She will call with any signs of infection or any concerns or if she does not hear from me with regard to the results of pathology within 1 week. She had no further questions. She is comfortable with this plan.
== END ==
PROVIDERS: PCP Family Medicine; Visit Provider Registered Nurse Maternal Newborn
DX: E04.1 Nontoxic single thyroid nodule (principal)
CPT/HCPCS: 10005; 76942; 88104

== ENCOUNTER → 2023-04-14 14:15 | Outpatient (CLI) | payer MEDICARE, MEDICAID, SELFPAY ==
--- NOTE | 2023-04-14 11:15 | DI.RAD_ITS ---
Exam(s) XR ABDOMEN FLAT UPRIGHT EXAM: XR ABDOMEN FLAT UPRIGHT CLINICAL HISTORY: ABDOMINAL PAIN-R10.9. TECHNIQUE: 2D digital imaging was performed. COMPARISON: No exams were available for comparison FINDINGS: Two views. The bowel gas pattern is nonspecific. No evidence of bowel obstruction. The amount of fecal materia l in the colon is judged as normal. With respect of free intraperitoneal air, the upright view does not include the top of the right cresencio diaphragm and therefore cannot accurately assess for the presence of free intraperitoneal air No obvious calcifications over the kidneys nor along course of the ureters. Scoliosis in the lumbar spine noted. Visualized lung bases are clear. Pelvic bones unremarkable. IMPRESSION: Nonspecific bowel gas pattern. No evidence of bowel obstruction However, cannot assess accurately for free intraperitoneal air as the upright image does not include the entire right hemidiaphragm. If there is suspicion for free intraperitoneal air then patient shoul d return for repeat upright view to include up to and above the level of the superior aspect of the r ight hemidiaphragm. DATA REPOSITORY: RADIATION DOSE DELIVERED:
== END ==
PROVIDERS: PCP Family Medicine; Visit Provider Nurse Practitioner Family
DX: R10.9 Unspecified abdominal pain (principal)
CPT/HCPCS: 74019

== ENCOUNTER 2023-08-16 14:58 | Outpatient (REF) | payer MEDICARE, MEDICAID, SELFPAY ==
[2023-08-16 21:30] LABS: Abs Immature Grans 0.03 10^3/uL (0.0-0.06); Absolute Basophil Count 0.08 10^3/uL (0.0-0.2); Absolute Eosinophil Count 0.62 10^3/uL (0.0-0.7); Absolute Lymphocyte Count 2.69 10^3/uL (1.2-3.4); Absolute Monocyte Count 0.86 10^3/uL (0.1-0.8); Absolute Neutrophil Count 5.61 10^3/uL (1.2-6.7); Basophils % 0.8 %; Eosinophils % 6.3 %; HCT 42.6 % (36.0-46.0); Immature Grans % 0.3 %; Lymphocytes % 27.2 %; MCH 31.4 pg (27.0-33.0); MCHC 32.9 % (32.0-36.0); MCV 96 fL (80-95); MPV 10.9 fL (8.0-11.0); Monocytes % 8.7 %; Neutrophils % 56.7 %; Platelet Count 235 10^3/uL (130-400); RBC 4.46 10^6/uL (3.93-5.22); RDW 13.3 % (11.7-14.6); RDW-SD 47.4 fL; WBC 9.89 10^3/uL (4.4-10.8)
[2023-08-16 21:45] LABS: Anion Gap 7.8 mmol/L (3-11); BUN 15 mg/dL (7-18); CO2 29.2 mmol/L (21.0-32.0); CREATININE 0.7 mg/dL (0.55-1.02); Calcium 9.1 mg/dL (8.5-10.1); Chloride 103 mmol/L (98-107); Estimated GFR 90.14 (mL/min/1.73m2); Glucose 84 mg/dL (74-106); Potassium 4.5 mmol/L (3.5-5.1); Sodium 140 mmol/L (136-145)
== END 2023-08-16 14:59 | disposition home or self-care (01) ==
LOC: LBN 14:58
PROVIDERS: PCP Family Medicine; Visit Provider Nurse Practitioner Family
DX: K57.92 Diverticulitis of intestine, part unspecified, without perforation or abscess without bleeding (principal); R10.32 Left lower quadrant pain; I10 Essential (primary) hypertension; F41.8 Other specified anxiety disorders
CPT/HCPCS: 80048; 85025

== ENCOUNTER 2023-08-23 09:45 | Emergency (ER) | payer MEDICARE, MEDICAID, SELFPAY ==
[2023-08-23] VITALS (19 sets, daily range): BP systolic 117–161; BP diastolic 56–75; PULSE 60–73; RESP 9–21; TEMP 36.9; O2SAT 95–98
[2023-08-23] MEDS: Normal Saline 1,000 ML 1000 ML IV (10:25)
[2023-08-23] MEDS: MORPHine 4 MG/ML SYR IVP (10:27)
[2023-08-23 10:33] LABS: Bilirubin Small (Negative); Blood Negative (Negative); Clarity Clear (Clear); Glucose Negative (Negative); Ketones >=160 mg/dL (Negative); Leukocyte Esterase Negative (Negative); Nitrite Negative (Negative); Specific Gravity >= 1.030 (1.005-1.025); Urobilinogen 0.2 mg/dL (Up to 0.2); pH 5.5 (5-8)
[2023-08-23 10:43] LABS: Abs Immature Grans 0.03 10^3/uL (0.0-0.06); Absolute Basophil Count 0.07 10^3/uL (0.0-0.2); Absolute Eosinophil Count 0.24 10^3/uL (0.0-0.7); Absolute Lymphocyte Count 1.48 10^3/uL (1.2-3.4); Absolute Monocyte Count 0.59 10^3/uL (0.1-0.8); Absolute Neutrophil Count 6.14 10^3/uL (1.2-6.7); Basophils % 0.8 %; Eosinophils % 2.8 %; HCT 43.7 % (36.0-46.0); HGB 14.4 g/dL (11.2-15.7); Immature Grans % 0.4 %; Lymphocytes % 17.3 %; MCH 31.4 pg (27.0-33.0); MCV 95 fL (80-95); MPV 10.3 fL (8.0-11.0); Monocytes % 6.9 %; Neutrophils % 71.8 %; Platelet Count 227 10^3/uL (130-400); RBC 4.59 10^6/uL (3.93-5.22); RDW 12.7 % (11.7-14.6); RDW-SD 43.8 fL; WBC 8.55 10^3/uL (4.4-10.8)
[2023-08-23 10:46] LABS: ESR 16 mm/hr (0-30)
[2023-08-23 10:59] LABS: ALT 19 U/L (14-59); AST 27 U/L (15-37); Albumin 3.7 g/dL (3.4-5.0); Alkaline Phosphatase 76 U/L (46-116); Anion Gap 15.1 mmol/L (3-11); BUN 10 mg/dL (7-18); Bilirubin, Total 0.55 mg/dL (0.2-1.0); C-Reactive Protein 0.79 mg/dL (<or=0.5); CO2 22.9 mmol/L (21.0-32.0); CREATININE 0.7 mg/dL (0.55-1.02); Calcium 8.8 mg/dL (8.5-10.1); Chloride 101 mmol/L (98-107); Estimated GFR 90.14 (mL/min/1.73m2); Glucose 69 mg/dL (74-106); Potassium 3.8 mmol/L (3.5-5.1); Sodium 139 mmol/L (136-145); Total Protein 7.3 g/dL (6.4-8.2)
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
[2023-08-23] MEDS: Omnipaque 350 MG/ML 500 ML BTL-Imaging package IJ (11:13)
--- NOTE | 2023-08-23 11:14 | DI.CT_ITS ---
Exam(s) CT ABDOMEN PELVIS W EXAM: CT ABDOMEN PELVIS W CLINICAL HISTORY: llq abd pain. TECHNIQUE: Imaging Protocol: Axial computed tomography images with coronal and sagittal reformatted images were created and reviewed CONTRAST MATERIAL: Intravenous: Omnipaque-350 100cc Oral: None COMPARISON: CT CT ABDOMEN PELVIS W from 11/23/2021 FINDINGS: VISUALIZED LUNG BASES: No nodules nor pleural effusions evident. ABDOMEN: There is no ascites. LIVER: Previously described cyst in the medial aspect of the right hepatic lobe is again noted, uncha nged. There are no new focal hepatic lesions evident. There are no dilated intrahepatic ducts. GALLBLADDER/BILIARY: No obvious gallbladder pathology. CBD is not dilated. PANCREAS: No evidence of pancreatic mass nor dilatation of the pancreatic duct. SPLEEN: Spleen is not enlarged. No obvious intrasplenic lesions. Splenic and portal veins are paten t. ADRENALS: Slight thickening of the genu of the left adrenal gland is unchanged. Right adrenal gland unremarkable. KIDNEYS:No cysts evident. No solid renal masses. No calculi nor hydronephrosis.. ABDOMINAL AORTA: Moderate atherosclerotic involvement. No significant aneurysm. LYMPH NODES:There is no retroperitoneal nor paraaortic adenopathy. ABDOMINAL WALL: No evidence of significant anterior abdominal wall nor inguinal hernia. GI: There is no evidence of bowel obstruction, free air, nor abscess. Fluid noted in the colon. PELVIS: GI: No evidence of appendicitis.There are few diverticuli in the sigmoid. There is no obvious acute diverticulitis. LYMPH NODES: There is no intrapelvic nor inguinal adenopathy. REPRODUCTIVE: Uterus is surgically absent. No abnormal adnexal masses. URINARY BLADDER: There is relatively uniform thickening of the urinary bladder wall which is either r elated to cystitis or under distension. OSSEOUS: Multilevel chronic degenerative disc disease. Scoliosis. No acute fractures. No lytic osseous lesions identified. IMPRESSION: 1. Previous hysterectomy. No abnormal adnexal masses nor free fluid. 2. Sigmoid diverticuli without evidence of obvious acute diverticulitis. No appendicitis. 3. Stable benign cyst in the liver. No new concerning intrahepatic lesions. 4. There is no ascites. Discussed with ER physician. RADIATION DOSE DELIVERED: 975.39mGy.cm Total DLP DATA REPOSITORY: All CT scans at this facility are submitted to the National Radiology Data Registry (NRDR) Dose Index Registry (DIR) with the [employer] (ACR). RADIATION OPTIMIZATION: All CT scans at this facility use at least one of these dose optimization te chniques: automated exposure control; mA and/or kV adjustment per patient size (includes targeted exa ms where dose is matched to clinical indication); or iterative reconstruction.
== END 2023-08-23 11:46 | disposition home or self-care (01) ==
PROVIDERS: Emergency Provider Emergency Medicine; PCP Family Medicine
DX: R10.9 Unspecified abdominal pain (principal); E16.2 Hypoglycemia, unspecified
CPT/HCPCS: 36415; 80053; 85652; 87040; 96361; 96374; 99285; 74177; 81003; 85025; 86140; 99283; J2270

== ENCOUNTER → 2023-11-09 08:57 | Outpatient (BNVA) | payer MEDICARE, MEDICAID, SELFPAY | PROVIDERS: PCP Family Medicine; Referring Provider Family Medicine; Visit Provider Surgery | DX: R10.9 Unspecified abdominal pain (principal) | CPT/HCPCS: 99214 ==

== ENCOUNTER 2023-11-25 01:59 | Outpatient (CLI) | payer MEDICARE, MEDICAID, SELFPAY ==
[2023-11-25 13:48] LABS: Abs Immature Grans 0.03 10^3/uL (0.0-0.06); Absolute Basophil Count 0.09 10^3/uL (0.0-0.2); Absolute Lymphocyte Count 2.42 10^3/uL (1.2-3.4); Absolute Monocyte Count 0.74 10^3/uL (0.1-0.8); Absolute Neutrophil Count 5.51 10^3/uL (1.2-6.7); Basophils % 0.9 %; Eosinophils % 7.4 %; HCT 41.9 % (36.0-46.0); HGB 13.5 g/dL (11.2-15.7); Immature Grans % 0.3 %; Lymphocytes % 25.5 %; MCHC 32.2 % (32.0-36.0); MCV 96 fL (80-95); MPV 10.3 fL (8.0-11.0); Monocytes % 7.8 %; Neutrophils % 58.1 %; Platelet Count 238 10^3/uL (130-400); RBC 4.35 10^6/uL (3.93-5.22); RDW 13.2 % (11.7-14.6); RDW-SD 47.1 fL; WBC 9.49 10^3/uL (4.4-10.8)
[2023-11-25 14:38] LABS: ALT 15 U/L (14-59); AST 17 U/L (15-37); Albumin 3.3 g/dL (3.4-5.0); Alkaline Phosphatase 85 U/L (46-116); BUN 22 mg/dL (7-18); Bilirubin, Total 0.33 mg/dL (0.2-1.0); CREATININE 0.8 mg/dL (0.55-1.02); Chloride 101 mmol/L (98-107); Estimated GFR 76.79 (mL/min/1.73m2); Glucose 121 mg/dL (74-106); Potassium 3.8 mmol/L (3.5-5.1); Sodium 135 mmol/L (136-145); TSH (W/Ref FT4) 0.37 uIU/mL (0.36-3.74); Total Protein 7.1 g/dL (6.4-8.2)
== END 2023-11-25 02:00 | disposition home or self-care (01) ==
LOC: LBO 02:00
PROVIDERS: PCP Family Medicine; Visit Provider Family Medicine
DX: R53.83 Other fatigue; E03.9 Hypothyroidism, unspecified
CPT/HCPCS: 36415; 80053; 84443; 85025

== ENCOUNTER 2023-12-08 10:02 | Outpatient (REF) | payer MEDICARE, MEDICAID, SELFPAY ==
--- NOTE | 2023-12-08 09:45 | VUL_PTH ---
PATIENT: Joselyn Gray LOC: [facility] U#:[id number] AGE/SX: 73/F ROOM: RE12/08/[address]: Shantal Evans DO : 1950 BED: DIS: 12/08/2023 SPEC #: [id number] RECD: 12/08/23 13:05 STATUS: SOUOswaldo REQ #: [id number] JOVITA: 12/08/23 09:[address]: Shantal Evans DEPT: Surgical Specimen RECD BY: Karina Streeter ENTERED: 12/08/23 13:05 SP TYPE: VUL OTHR DR: Gretta Garcia Tissues: 1 - VULVA BIOPSY Procedures: GROSS AND MICRO LEVEL 4 Comments: [id number]
== END 2023-12-08 10:03 | disposition home or self-care (01) ==
LOC: LBN 10:02
PROVIDERS: PCP Family Medicine; Visit Provider Obstetrics & Gynecology
DX: L90.0 Lichen sclerosus et atrophicus (principal)
CPT/HCPCS: 88305

== ENCOUNTER 2024-02-21 01:51 | Outpatient (CLI) | payer MEDICARE, MEDICAID, SELFPAY ==
--- NOTE | 2024-02-21 10:36 | DI.RAD_ITS ---
Exam(s) XR THORACIC SPINE COMPLETE EXAM: XR THORACIC SPINE COMPLETE CLINICAL HISTORY: Back pain, thoracic and rotation noted on exam,m54.9. TECHNIQUE: 2D digital imaging was performed. COMPARISON: CR XR CERVICAL SPINE COMP 4-5V from 05/01/[address] ABDOMEN PELVIS W from 08/23/2023 FINDINGS: There is a bidirectional thoracolumbar scoliosis, as was also evident on CT scan of 08/23/2023. There does not appear to be an obvious acute fracture. There is multilevel degenerative disc disease noted in the lower cervical spine as well as some mild disc space narrowing in the thoracic spine. IMPRESSION: Scoliosis. No obvious acute fractures. Disc space narrowing. DATA REPOSITORY: RADIATION DOSE DELIVERED:
== END 2024-02-21 02:11 ==
LOC: DI 01:52
PROVIDERS: PCP Family Medicine; Visit Provider Physician Assistant
DX: M41.35 Thoracogenic scoliosis, thoracolumbar region (principal)
CPT/HCPCS: 72072

== ENCOUNTER → 2024-06-22 10:04 | Outpatient (BNVA) | payer MEDICARE, MEDICAID, SELFPAY | PROVIDERS: PCP Family Medicine; Referring Provider Family Medicine; Visit Provider Physical Therapy Assistant ==

== ENCOUNTER → 2024-09-21 10:49 | Outpatient (BNVA) | payer MEDICARE, MEDICAID, SELFPAY | PROVIDERS: PCP Family Medicine; Referring Provider Family Medicine; Visit Provider Physical Therapy Assistant | DX: Z12.11 Encounter for screening for malignant neoplasm of colon (principal) | CPT/HCPCS: S0285 ==

== ENCOUNTER 2024-10-20 07:36 | Day surgery (SDC) | payer MEDICARE, MEDICAID, SELFPAY ==
--- NOTE | 2024-10-19 18:56 | W.ANESPRE ---
General Info Date of Service Date Performed: 10/20/24 Height: 5 ft 2 in Weight: 83.007 kg Body Mass Index (BMI): 33.5 Surgical Procedure: Operation Date: 10/20/24 08:50 Proposed Procedure Side Surgeon delym Chandler MD Meds Allergies and Home Medications Allergies Allergy/AdvReac Type Severity Reaction Status Date / Time amlodipine AdvReac Severe lower mid Verified 10/20/24 07:56 abdominal pain bupropion HCl (From AdvReac Severe FELT CRAZY Verified 10/20/24 07:56 Wellbutrin) atorvastatin calcium (From AdvReac Intermediate Diarrhea Verified 10/20/24 07:56 Lipitor) codeine AdvReac Nausea Verified 10/20/24 07:56 lactose AdvReac Diarrhea/Cr Verified 10/20/24 07:56 amping propoxyphene AdvReac Nausea Verified 10/20/24 07:56 Home Medication ?Medication ?Instructions ?Recorded Lactobacillus acidophilus-pectin 1 cap PO DAILY 05/26/12 capsule (Acidophilus-Pectin capsule) multivitamin 1 tab PO DAILY 05/26/12 acetaminophen 325 mg tablet 325 mg PO Q6H PRN PRN 12/24/16 (Tylenol) cholecalciferol (vitamin D3) 75 1,000 unit PO DAILY 02/10/18 mcg (3,000 unit) tablet vitamin B complex 1 tab PO DAILY 11/25/22 vitamin E (dl, acetate) 45 mg (100 45 mg PO DAILY 11/25/22 unit) capsule clobetasol 0.05 % topical ointment 1 applic topical BID #60 grams 07/02/23 albuterol sulfate 90 mcg/actuation 2 puff inhalation Q6H PRN 07/28/23 aerosol inhaler shortness of breath or wheezing #18 grams loratadine 10 mg tablet (Claritin) 10 mg PO DAILY PRN allergy 09/10/23 symptoms #30 tabs citalopram 20 mg tablet 20 mg PO DAILY #90 tabs 04/20/24 Current Visit Medications: Current Medications Generic Name Dose Route Start Last Admin Trade Name Freq PRN Reason Stop Dose Admin Ringer's Solution 1,000 mls @ 80 mls/hr 10/20/24 06:00 IV 10/20/24 23:59 INFUSION HEMANTH IV Miscellaneous Supplies 1 each 10/20/24 06:00 Iv Access IV 10/20/24 23:59 DIRECTED HEMANTH Sodium Chloride 0 ml 10/20/24 06:00 Normal Saline Flush 10 Ml Syr IV 10/20/24 23:59 PRN PRN Sodium Chloride 0 ml 10/20/24 06:00 Normal Saline 10 Ml Vial IJ 10/20/24 23:59 DIRECTED PRN Sterile Water 0 ml 10/20/24 06:00 Water,Injection,Sterile 10 Ml Vial IJ 10/20/24 23:59 DIRECTED PRN PFSH Active Problems Active Problems: Problem Status Onset Code Viral respiratory illness Acute J98.8, B97.89 Fatigue Acute R53.83 Thyroid nodule greater than or equal to 1 cm in diameter incidentally noted on imaging study Chronic 12/2022 E04.1 Hyperlipidemia Chronic 07/20/13 E78.5 Depressive disorder Chronic F32.9 Anxiety Chronic F41.9 Lichen sclerosus et atrophicus Acute 08/10/12 L90.0 Mild persistent asthma without complication Chronic 09/17/16 J45.30 Hypertension Chronic I10 Pelvic floor dysfunction Chronic M62.89 Bunion, right foot Acute M21.611 Bunion, left foot Acute M21.612 Hammertoe of right foot Acute M20.41 Metatarsalgia of both feet Acute M77.41, M77.42 Achilles tendon contracture, bilateral Acute M67.01, M67.02 Migraine headache with aura Chronic G43.109 Medical History Medical History 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 BARAHONA Vaginal atrophy Surgical History Surgical History H/O bilateral salpingo-oophorectomy 02/22/98 S/P abdominal hysterectomy 02/22/98 H/O bladder repair surgery 02/22/98 Fracture, Closed Treatment LEFT FEMUR (1971) Colonoscopy - [facility] [place] (~2004) Tobacco Smoking/Tobacco Use Status: Former Tobacco Use Passive smoking exposure: Yes Second hand exposure: Yes Alcohol Alcohol Intake: former Substance Use Substance use: Current Sobriety Substance use type: marijuana Counseling provided: none Prental History History 1 Para 1 Hx # Term Pregnancies 1 Multiple births Hx # Pregnancies Ectopic pregnancies AB induced Hx Number of Living Children 1 AB spontaneous Past Pregnancies Del. Date GA/Weeks # Preg Succ Route Wgt Sex Labor Lgth Anesthesia Location [facility] 01/21/1969 vaginal Vital Signs and Lab Results Vital Signs Most Recent Vital Signs in EMR: Temp Pulse Resp BP Pulse Ox 36.2 C L 82 18 134/87 100 10/20/24 07:52 10/20/24 07:52 10/20/24 07:52 10/20/24 07:52 10/20/24 07:52 Anesthesia Assessment and Plan Anesthesia History Personal History: No History of Anesthesia Complications Family History: No Family History of Anesthesia Complications Exercise Tolerance Exercise Tolerance: Metabolic Equivalents>4 Cardiac & Pulmonary Exam Cardiac Exam: Normal S1/S2 Heart Sounds Pulmonary Exam: Clear Bilateral Breath Sounds Implantable Cardiac Device Does patient have a Pacemaker or an ICD?: No Airway Exam Known Difficult Airway: No Mallampati Class: 3 Mouth Opening: Normal (> 3cm) Thyromental Distance: Greater than 3 cm Neck Range of Motion: Full ROM Neck Circumference: Normal Teeth Condition: Normal Dentition ASA Classification ASA Score: ASA 2 Emergency Case?: No NPO Status NPO Status: NPO Clears >2 hours, Solids >8 hours Anesthesia Plan Resuscitation Status: Full Code Anesthesia Technique: General Anesthesia Airway Planned: Natural Airway Monitors Used: Standard Monitors Preoperative Comments:: 74 yo for colo. Sig PMHx: HTN, asthma, depression/anxiety, LBP. ECG: sinus. ECHO: LVEF 55-60%, mild MR. carotid: mild plaque.
--- NOTE | 2024-10-19 19:02 | W.PM.DSUDISC ---
Date of service: 10/20/24 Discharge Plan Disposition Patient Disposition: Home Condition: Good Discharge Details Reason For Visit: screening colonoscopy Attending Provider: Edilberto Chandler Primary Care Provider: Gretta Garcia Home Meds and New Rx's Prescriptions: Continued vitamin E (dl, acetate) 45 mg (100 unit) capsule 45 mg PO DAILY vitamin B complex Tablet 1 tab PO DAILY albuterol sulfate 90 mcg/actuation HFA aerosol inhaler 2 puff IH Q6H PRN (Reason: shortness of breath or wheezing) Qty: 18 4RF clobetasol 0.05 % ointment 1 applic topical BID Qty: 60 2RF cholecalciferol (vitamin D3) 3,000 unit tablet 1,000 unit PO DAILY multivitamin 1 EACH tablet 1 tab PO DAILY Acidophilus-Pectin 1 EACH capsule 1 cap PO DAILY loratadine [Claritin] 10 mg tablet 10 mg PO DAILY PRN (Reason: allergy symptoms) Qty: 30 3RF Rx Instructions: Take one tab daily as needed for allergy symptoms citalopram 20 mg tablet 20 mg PO DAILY Qty: 90 3RF acetaminophen [Tylenol] 325 MG tablet 325 mg PO Q6H PRN PRN0RF Discharge Instructions Instructions: Colon polyps, Diverticulosis Additional Instructions: Ching, was great seeing you today. I hope you find some reassurance in the results, and feel well through the rest of the day. Things went very smoothly. Your prep was outstanding. I did find, and remove a single polyp today. It is extremely small, and certainly nothing at all to worry about. I will have the pathologist test this since polyps, different types, and sometimes that helps inform the timing of future colonoscopies. However, with your family history, at the very longest, 5 years would be the most appropriate interval. The results of the polyp analysis will take a week or so to get back, but once my office has had information we will be in touch with the definitive recommendations. Incidentally, he also have a little bit of diverticulosis. Diverticula are little weak spots in the muscular layer of the colon wall. This causes the inside lining or mucosa to pocket her pouch outwards a bit. Sometimes these can get infected or inflamed, and we refer to that as diverticulitis. Most patients, however, are never bothered by it and never even know that they are there. Hopefully years never give you any trouble. I will attach some basic information here about typical approaches to diverticular management. Certainly if you have any questions at all, please do not hesitate to call at any time. 1. If tolerated, consume a soft, low fiber diet for 1-2 days. 2[address] Do not drive, drink alcohol, operate machinery, make critical decisions, or do activities that require coordination or balance for 24 hours. 3. Because air was put into your colon during the procedure, expelling air from your rectum (passing gas or farting) is normal. 4. You may not have a bowel movement for 1-3 days because of the colonoscopy prep. This is normal. 5. Go directly to the emergency room if you notice any of the following: Develop chills (warm to touch), or if you have a thermometer and your temperature is above 101 Difficulty breathing or difficultly swallowing Persistent vomiting Severe abdominal pain, other than gas cramps Severe chest pain Black, tarry stools Any bleeding ? exceeding one tablespoon 6. Call your physician if the site where your intravenous was started becomes red, swollen, painful, and warm to touch. 7. Your physician has reviewed your pre-procedure medications. Please continue to take those medications as previously ordered. You will be given specific information/education regarding any changes to your medications before leaving. Stand Alone Forms: Anesthesia Discharge Inst., Colonoscopy Post Instructions, Kayla Brock (DSU) Activity:: Activity as Tolerated Diet:: As Tolerated Discharge Orders Discharge Orders: Discharge Order (Routine); Ordered 10/19/24 Ordered By: Edilberto Chandler DS: Diagnosis Discharge Diagnosis (1) Encounter for screening colonoscopy: Status: Acute Asessment and Plan: Follow-up with polypectomy result
--- NOTE | 2024-10-19 19:04 | COLE_ITS ---
Date of service: 10/20/24 Time of Service: 09:19 Colonoscopy Report Date of procedure: 10/20/24 Pre-op diagnosis general: screening colonoscopy Post-op diagnosis procedure note: other (Diverticulosis, colon polyp) Procedure: colonoscopy with polypectomy Surgeon: Edilberto Chandler Anesthesia Type: General:No Airway Estimated blood loss (mL): 5 Pathology: other (0.25 cm flat polyp at 25 cm) Complications: None Disposition: same day Indications: Joselyn is a 74 year old woman with a fmaily history of rectal cancer. She needs her next screening colonoscopy Prep: Miralax/Dulcolax Procedure Start Time: 08:52 Procedure End Time: 09:11 Retraction Time: 8 Findings: Sigmoid diverticulosis; 0.25 cm flat polyp at 25 cm Procedure Description: After the induction of anesthesia, and with the patient in left lateral decubitus position, I began by performing an external anorectal exam.? Perineum and skin were normal, as was the anal verge.? There was no evidence of external hemorrhoids.? Next, I performed a digital rectal exam.? I did not appreciate any abnormal findings.? Next, I advanced a colonoscope into the rectal vault.? I performed retroflexion.? This appeared normal.? Using irrigation, I then advanced the colonoscope beyond the rectal folds and into the sigmoid colon before advancing towards the cecum.? The quality of the prep was outstanding.? The scope was noted to be in the cecum by identification of the ileocecal valve and appendiceal orifice.? I then began withdrawing the colonoscope using repeated irrigation as necessary for full evaluation of the colonic mucosa. There are some diverticulosis in the sigmoid segment. Around 25 cm from the anal verge is a 0.25 cm flat polyp. This was removed with cold forcep polypectomy. There was minimal bleeding. ?Once the scope was withdrawn to the level of the rectum, great care was taken to examine portions of the rectal folds.? Finally, the scope was withdrawn and the patient was brought to the same-day surgery recovery unit as the anesthetic wore off. ?The findings and instructions were shared with the patient prior to discharge. Phoenix Bowel Prep Phoenix Bowel Prep Right Colon: 3 Left Colon: 3 Transverse Colon: 3 Total Score: 9
[2024-10-20 07:52] VITALS: BP 134/87; PULSE 82; RESP 18; TEMP 36.2; O2SAT 100
[2024-10-20] MEDS: Lactated Ringers 1,000 ML 80 ML IV (08:05)
[2024-10-20 08:24] VITALS: BMI 33.5
--- NOTE | 2024-10-20 09:09 | BOWEL_PTH ---
PATIENT: Joselyn Gray LOC: [facility] U#:[id number] AGE/SX: 74/F ROOM: RE10/20/[address]: Edilberto Chandler MD : [id number] BED: DIS: 10/20/2024 SPEC #: [id number] RECD: 10/20/24 12:30 STATUS: NAVYA REJono #: [id number] JOVITA: 10/20/24 09:[address]: Edilberto Chandler DEPT: Surgical Specimen RECD BY: Karina Streeter ENTERED: 10/20/24 12:31 SP TYPE: Bowel OTHR DR: Gretta Garcia Tissues: 1 - BIOPSY BOWEL Procedures: GROSS AND MICRO LEVEL 4 Comments: [id number]
[2024-10-20 09:15] VITALS: BP 146/82; PULSE 65; RESP 14; TEMP 36.2; O2SAT 97
--- NOTE | 2024-10-20 09:19 | W.ANESPOSTOP ---
Postoperative Evaluation Date, Time and Location Date Performed: 10/20/24 Time Performed: 09:20 Patient Location: Day Surgery Unit Vital Signs Most Recent Imported Vital Signs: Most Recent Vital Signs Temp Pulse Resp BP Pulse Ox 36.2 C L 65 14 146/82 H 97 10/20/24 09:15 10/20/24 09:15 10/20/24 09:15 10/20/24 09:15 10/20/24 09:15 Pain Score Most Recent Pain Score: Most Recent Pain Score Pain Level 0 10/20/24 09:15 Assessment Mental Status: Awake (Alert & Oriented to Patient Baseline) Airway and Respiratory Function: Patent airway with normal (patient baseline) respiratory exam Cardiovascular Function: Hemodynamically Stable Hydration Status: Adequately Hydrated Nausea & Vomiting: No Nausea or Vomiting Pain: Pt. Denies Any Pain Peripheral Nerve Block: Patient did not receive a nerve block
[2024-10-20 09:41] VITALS: BP 156/74; PULSE 56; RESP 14; TEMP 36.2; O2SAT 98
== END 2024-10-20 10:01 | disposition home or self-care (01) ==
LOC: SUR 07:36
PROVIDERS: PCP Family Medicine; Visit Provider Surgery
PROC: 0DJD8ZZ Inspection of Lower Intestinal Tract, Via Natural or Artificial Opening Endoscopic (ICD-10-PCS; CPT 45378; principal; 2024-10-20 08:45)
DX: Z12.11 Encounter for screening for malignant neoplasm of colon (principal); I10 Essential (primary) hypertension; J45.909 Unspecified asthma, uncomplicated; K57.30 Diverticulosis of large intestine without perforation or abscess without bleeding; K63.5 Polyp of colon; Z80.0 Family history of malignant neoplasm of digestive organs
CPT/HCPCS: 45380; 88305; J2704

== ENCOUNTER → 2024-12-29 03:19 | Outpatient (CLI) | payer MEDICARE, SELFPAY ==
--- NOTE | 2024-12-29 14:30 | DI.RAD_ITS ---
Exam(s) XR KNEE RT 3V AP,LAT,ETHAN EXAM: XR KNEE RT 3V AP,LAT,ETHAN CLINICAL HISTORY: Worsening right knee pain,M25.569. TECHNIQUE: 2D digital imaging was performed. COMPARISON: CR XR KNEE RT 3V AP,LAT,ETHAN from 06/04/2020 FINDINGS: 3 views No evidence of acute fracture but there is a prominent joint effusion noted. There is [id number] narrowing of the medial compartment and marginal osteophytes in the medial compartment noted as well as degenerative pointing of the tibial spines. More moderate degenerative changes are noted in the lateral compartment. Significant degenerative changes in the in the patellofemoral compartment noted. On the lateral view there is a calcified intra-articular body measuring 12 mm AP length by 4 mm thick IMPRESSION: Advanced [id number] narrowing of the medial compartment Moderate degenerative changes in the medial and patellofemoral compartments. 12 x 4 mm calcified loose body anteriorly, best seen on the lateral view. DATA REPOSITORY: RADIATION DOSE DELIVERED:
== END ==
LOC: DI 03:19
PROVIDERS: PCP Nurse Practitioner Family; Visit Provider Nurse Practitioner Family
DX: M25.561 Pain in right knee (principal); M17.11 Unilateral primary osteoarthritis, right knee; M22.2X1 Patellofemoral disorders, right knee
CPT/HCPCS: 73562